=== PATIENT | female | born 1940 | race Caucasian/White ===

== ENCOUNTER 2017-01-15 11:13 | Inpatient (IN) | payer OTHER, BC ==
[2017-01-15 13:27] LABS: BASOPHIL 0.4 % (0-2.0); EOSINOPHIL 0.2 % (0-4.5); MCH 26.6 pg (25.7-33.7); MCHC 31.7 g/dl (32.0-36.0); MEAN PLT VOLUME 8.5 fl (7.5-11.1); NEUTROPHILS 84.8 % (42.8-82.8); PLATELET COUNT 155 K/MM3 (134-434); RDW 14.4 % (11.6-15.6); WHITE BLOOD COUNT 14.5 K/mm3 (4.0-10.0)
--- NOTE | 2017-01-15 13:40 | PDOC ---
History of Present Illness - General History Source: Patient Exam Limitations: No Limitations - History of Present Illness Initial Comments: 01/15/17 13:42 The patient is a 76-year-old female with a significant past medical history of HTN, HLD, breast CA, and bone CA, and presents to the emergency department with abdominal pain and blood in her diarrhea. The patient was in this ER yesterday for the same issue. She reports that she had sudden onset left lower quadrant pain and went to the bathroom, where she noted blood in her diarrhea. She reports she has a history of hemorrhoids but denies any rectal pain. She denies any recent illness, travel or antibiotic use. The patient denies chest pain, shortness of breath, headache and dizziness. The patient denies fever, chills, nausea, vomit, and constipation. The patient denies dysuria, frequency, urgency and hematuria. Allergies: penicillin Past Surgical History: appendectomy Social History: No toxic habits reported PCP: Dr. Danny Barker <Argelia Dash - Last Filed: 01/15/17 14:02> <Ramos Conteh - Last Filed: 01/15/17 14:51> - General Chief Complaint: Rectal Bleed Stated Complaint: BLOOD IN STOOL Time Seen by Provider: 01/15/17 12:55 Past History <Argelia Dash - Last Filed: 01/15/17 14:02> - Past Medical History Anemia: No Asthma: No Cancer: Yes (breast ca, bone cancer) Cardiac Disorders: No CVA: No COPD: No CHF: No Dementia: No Diabetes: No GI Disorders: No Disorders: No HTN: Yes Hypercholesterolemia: Yes Liver Disease: No Seizures: No Thyroid Disease: No - Surgical History Abdominal Surgery: No Appendectomy: Yes Cardiac Surgery: No Cholecystectomy: No Lung Surgery: No Neurologic Surgery: No Orthopedic Surgery: No - Psycho/Social/Smoking Cessation Hx Anxiety: No Suicidal Ideation: No Smoking History: Never smoked Have you smoked in the past 12 months: No Information on smoking cessation initiated: No Hx Alcohol Use: No Drug/Substance Use Hx: No Substance Use Type: None Hx Substance Use Treatment: No <Ramos Conteh - Last Filed: 01/15/17 14:51> - Past Medical History Allergies/Adverse Reactions: Allergies Allergy/AdvReac Type Severity Reaction Status Date / Time penicillin G Allergy Severe Verified 01/15/17 11:20 Home Medications: Ambulatory Orders Anastrozole [Arimidex -] 1 mg PO HS 01/14/17 Calcium (Oyster Shell) [Os-[place] 500Mg -] 500 mg PO DAILY 01/14/17 Cholecalciferol (Vitamin D3) [Vitamin D3 -] 1,000 unit PO DAILY 01/14/17 Multivitamin [Poly-Vitamin] 1 each PO DAILY 01/14/17 Simvastatin [Zocor -] 20 mg PO HS 01/14/17 Verapamil HCl [Calan] 240 mg PO DAILY 01/14/17 Review of Systems - Review of Systems Able to Perform ROS?: Yes Comments:: 01/15/17 13:42 GENERAL/CONSTITUTIONAL: No fever or chills. No weakness. HEAD, EYES, EARS, NOSE AND THROAT: No change in vision. No ear pain or discharge. No sore throat. CARDIOVASCULAR: No chest pain or shortness of breath. RESPIRATORY: No cough, wheezing, or hemoptysis. GASTROINTESTINAL: (+) Abdominal pain. (+) Bloody diarrhea. No nausea, vomiting, or constipation. GENITOURINARY: No dysuria, frequency, or change in urination. MUSCULOSKELETAL: No joint or muscle swelling or pain. No neck or back pain. SKIN: No rash NEUROLOGIC: No headache, vertigo, loss of consciousness, or change in strength/ sensation. ENDOCRINE: No increased thirst. No abnormal weight change. HEMATOLOGIC/LYMPHATIC: No anemia, easy bleeding, or history of blood clots. ALLERGIC/IMMUNOLOGIC: No hives or skin allergy. <Dash,Argelia - Last Filed: 01/15/17 14:02> *Physical Exam - Vital Signs Last Vital Signs Temp Pulse Resp BP Pulse Ox 97.8 F 128 H 18 102/64 100 01/15/17 11:14 01/15/17 11:14 01/15/17 11:14 01/15/17 11:14 01/15/17 13:12 - Physical Exam Comments: 01/15/17 13:42 GENERAL: Awake, alert, and fully oriented, in no acute distress HEAD: No signs of trauma EYES: PERRLA, EOMI, sclera anicteric, conjunctiva clear ENT: Auricles normal inspection, hearing grossly normal, nares patent, oropharynx clear without exudates. Moist mucosa NECK: Normal ROM, supple, no lymphadenopathy, JVD, or masses LUNGS: Breath sounds equal, clear to auscultation bilaterally. No wheezes, and no crackles HEART: (+) Tachycardic and regular rhythm, normal S1 and S2, no murmurs, rubs or gallops ABDOMEN: (+) LLQ tenderness to palpation. Soft, normoactive bowel sounds. No guarding, no rebound. No masses EXTREMITIES: Normal range of motion, no edema. No clubbing or cyanosis. No cords, erythema, or tenderness NEUROLOGICAL: Cranial nerves II through XII grossly intact. Normal speech, normal gait SKIN: Warm, Dry, normal turgor, no rashes or lesions noted. <Argelia Dash - Last Filed: 01/15/17 14:02> - Vital Signs Last Vital Signs Temp Pulse Resp BP Pulse Ox 97.8 F 128 H 18 102/64 100 01/15/17 11:14 01/15/17 11:14 01/15/17 11:14 01/15/17 11:14 01/15/17 13:12 <Ramos Conteh - Last Filed: 01/15/17 14:51> Heart Score/ECG Review - ECG Impressions Comment:: 01/15/17 14:02 Normal sinus rhythm. Normal ECG. <Argelia Dash - Last Filed: 01/15/17 14:02> ED Treatment Course - LABORATORY CBC & Chemistry Diagram: 01/15/17 13:12 01/15/17 13:12 - ADDITIONAL ORDERS Additional order review: 01/15/17 13:12 RBC 5.11 MCV 84.0 MCHC 31.7 L RDW 14.4 MPV 8.5 Neutrophils % 84.8 H Lymphocytes % 8.0 Monocytes % 6.6 Eosinophils % 0.2 Basophils % 0.4 <Argelia Dash - Last Filed: 01/15/17 14:02> - LABORATORY CBC & Chemistry Diagram: 01/15/17 13:12 01/15/17 13:12 - ADDITIONAL ORDERS Additional order review: 01/15/17 13:12 RBC 5.11 MCV 84.0 MCHC 31.7 L RDW 14.4 MPV 8.5 Neutrophils % 84.8 H Lymphocytes % 8.0 Monocytes % 6.6 Eosinophils % 0.2 Basophils % 0.4 <Ramos Conteh - Last Filed: 01/15/17 14:51> Medical Decision Making - Medical Decision Making 01/15/17 13:40 Called and discussed case with Dr. Magallanes. Called and discussed case with Dr. Barker. <Argelia Dash - Last Filed: 01/15/17 14:02> *DC/Admit/Observation/Transfer - Attestations Scribe Attestion: 01/15/17 13:43 Documentation prepared by Argelia Dash, acting as medical claims analyst for Ramos Conteh MD. <Argelia Dash - Last Filed: 01/15/17 14:02> - Discharge Dispostion Admit: Yes - Attestations Physician Attestion: 01/15/17 13:40 I, Dr. Ramos Conteh, attest that this document has been prepared under my direction and personally reviewed by me in its entirety. I further attest, that it accurately reflects all work, treatment, procedures and medical decision -making performed by me. <Ramos Conteh - Last Filed: 01/15/17 14:51> Diagnosis at time of Disposition: Colitis Gastrointestinal hemorrhage Qualifiers: GI bleed type/associated pathology: unspecified gastrointestinal hemorrhage type Qualified Code(s): K92.2 - Gastrointestinal hemorrhage, unspecified - Discharge Dispostion Condition at time of disposition: Improved - Referrals Referrals: Danny Barker MD [Primary Care Provider] -
[2017-01-15 13:43] LABS: ALBUMIN 3.4 g/dl (3.4-5.0); BILIRUBIN,TOTAL 1.5 mg/dL (0.2-1.0); CALCIUM 9.1 mg/dL (8.5-10.1); CREATININE 1.7 mg/dL (0.55-1.02); TOT PROT 6.4 g/dl (6.4-8.2)
[2017-01-15 13:52] LABS: INR 1.23 (0.82-1.09); PROTHROMBIN TIME (PATIENT) 13.6 SEC (9.98-11.88)
--- NOTE | 2017-01-15 13:54 | HP ---
CHIEF COMPLAINT: " I have rental bleeding" PCP: Dr Duran HISTORY OF PRESENT ILLNESS: This is a 76 yo M with PMH of HTN, HLD, Breast CA, Bone CA, hemorrhoids, who presents with rectal bleed. She states that yeterday mornign she woke up with sharp LLQ pain and had an episode of bloody diarrhea. She then visited [facility] ED here, was given IV abx and sent home. This morning she had another episode of hematochezia and intermittent in severity LLQ pain. She has not been drinking water or eating since yesterday morning. This has never happened before. Her last colonoscopy was in 2012 and was WNL according to her son. She had an episode of bleeding hemorrhoids in the that have not recurred. She has no family Hx of Gi CA. She deneis f/c, n/v, dizzness, edema, chest pain, h/a or dysuria. She does admit to frequent constipation. ER course was notable for: (1) Abd CT (2) Labs (3) IVF Recent Travel: denies PAST MEDICAL HISTORY: as above PAST SURGICAL HISTORY:cholecystectomy in [facility] , c section Social History: lives at home Smoking: denies Alcohol:denies Drugs: denies Family History: no hx colon or gi CA Allergies penicillin G Allergy (Severe, Verified 01/15/17 11:20) HOME MEDICATIONS: Home Medications Medication Instructions Recorded Anastrozole [Arimidex -] 1 mg PO HS 01/14/17 Calcium (Oyster Shell) [Os-[place] 500 mg PO DAILY 01/14/17 500Mg -] Cholecalciferol (Vitamin D3) 1,000 unit PO DAILY 01/14/17 [Vitamin D3 -] Multivitamin [Poly-Vitamin] 1 each PO DAILY 01/14/17 Simvastatin [Zocor -] 20 mg PO HS 01/14/17 Verapamil HCl [Calan] 240 mg PO DAILY 01/14/17 REVIEW OF SYSTEMS CONSTITUTIONAL: Absent: fever, chills HEENT: Absent: rhinorrhea, nasal congestion, throat pain CARDIOVASCULAR: Absent: chest pain, syncope, palpitations RESPIRATORY: Absent: cough, shortness of breath, dyspnea with exertion GASTROINTESTINAL: Absent: nausea, vomiting GENITOURINARY: Absent: dysuria MUSCULOSKELETAL: Absent: myalgia, arthralgia SKIN: Absent: rash, itching, pallor HEMATOLOGIC/IMMUNOLOGIC: Absent: easy bleeding, easy bruising ENDOCRINE: Absent: unexplained weight gain, unexplained weight loss NEUROLOGIC: Absent: headache, focal weakness or paresthesias, dizziness PSYCHIATRIC: Absent: anxiety, depression PHYSICAL EXAMINATION Vital Signs - 24 hr 01/15/17 01/15/17 11:14 13:12 Temperature 97.8 F Pulse Rate 128 H Respiratory 18 Rate Blood Pressure 102/64 O2 Sat by Pulse 99 100 Oximetry (%) GENERAL: Awake, alert, and fully oriented, in no acute distress. HEAD: Normal with no signs of trauma. EYES: Pupils equal, round and reactive to light, extraocular movements intact, sclera anicteric, conjunctiva clear. EARS, NOSE, THROAT:Moist mucous membranes. NECK: supple without JVD LUNGS: Breath sounds equal, clear to auscultation bilaterally. HEART: Regular rate and rhythm, normal S1 and S2 ABDOMEN: Soft, LLQ mildly tender, RLQ mildly tender, mildly distended, reduced bowel sounds, no guarding, no rebound, no masses. No hepatomegaly or splenomegaly. Rectal Exam: no lesions, no hemorrhoids, no stool, bright red blood, normal sphincter tone. MUSCULOSKELETAL:No CVA tenderness. UPPER EXTREMITIES: 2+ pulses, warm, well-perfused. No peripheral edema. LOWER EXTREMITIES: 2+ pulses, warm, well-perfused. No calf tenderness. No peripheral edema. NEUROLOGICAL: Cranial nerves II-XII grossly intact. Normal speech. PSYCHIATRIC: Cooperative. Good eye contact. Appropriate mood and affect. SKIN: Warm, dry Laboratory Results - last 24 hr 01/15/17 01/15/17 13:12 13:12 WBC 14.5 H RBC 5.11 Hgb 13.6 Hct 43.0 MCV 84.0 MCHC 31.7 L RDW 14.4 Plt Count 155 D MPV 8.5 Neutrophils % 84.8 H Lymphocytes % 8.0 Monocytes % 6.6 Eosinophils % 0.2 Basophils % 0.4 Sodium 142 Potassium 4.5 Chloride 106 Carbon Dioxide 23 Anion Gap 13 BUN 19 H D Creatinine 1.7 H Creat Clearance w eGFR 29.07 Random Glucose 112 H Calcium 9.1 Total Bilirubin 1.5 H D AST 36 D ALT 20 Alkaline Phosphatase 78 Total Protein 6.4 Albumin 3.4 ASSESSMENT/PLAN: This is a 76 yo M with PMH of HTN, HLD, Breast CA, Bone CA, hemorrhoids, who presents with rectal bleed. Acute L sided colitis -CT abd: acute L sided colitis, cholelithiasis, diverticulosis -leukocytosis trending up 14.5 from 12 -IV flagyl, rocephin -GI consult -IV tylenol prn pain GIB -no episodes in ED -h/h stable, trend cbc -NPO -IV PPI SERGIO -creat 1.7 trending up from 1.5 -likely due to dehydration -unknown baseline -IV hydration HTN -relatively hypotensive -hold meds FEN NS @ 100 stable lytes NPO Dispo: obs in med [facility] Problem List - Problem (1) Colitis Code(s): K52.9 - NONINFECTIVE GASTROENTERITIS AND COLITIS, UNSPECIFIED (2) GI bleeding Code(s): K92.2 - GASTROINTESTINAL HEMORRHAGE, UNSPECIFIED Qualifiers: GI bleed type/associated pathology: unspecified gastrointestinal hemorrhage type Qualified Code(s): K92.2 - Gastrointestinal hemorrhage, unspecified (3) DVT prophylaxis Code(s): [id number] - (4) Dehydration Code(s): E86.0 - DEHYDRATION (5) Dizziness Code(s): R42 - DIZZINESS AND GIDDINESS (6) Hyperlipidemia Code(s): E78.5 - HYPERLIPIDEMIA, UNSPECIFIED (7) Hypertension Code(s): I10 - ESSENTIAL (PRIMARY) HYPERTENSION Visit type - Emergency Visit Emergency Visit: Yes ED Registration Date: 01/15/17 Care time: The patient presented to the Emergency Department on the above date and was hospitalized for further evaluation of their emergent condition. - New Patient This patient is new to me today: Yes Date on this admission: 01/15/17 - Critical Care Critical Care patient: No
[2017-01-15] MEDS ORDERED: ACETAMINOPHEN 1000 MG/100 ML VIAL (NON FORMULARY) IVPB PRN (15:29)
[2017-01-15] MEDS ORDERED: PANTOPRAZOLE 20 MG TABLET (FP) PO SCH (15:30)
[2017-01-15] MEDS ORDERED: LACTATED RINGERS SOLUTION 1,000 ML IV SCH (15:30)
[2017-01-15] MEDS ORDERED: PANTOPRAZOLE 40 MG TABLET (FP) ONE (15:39)
[2017-01-15] MEDS: METRONIDAZOLE 500 MG PREMIXED 100 ML IVPB SCH ×2 (15:44→21:39)
--- NOTE | 2017-01-15 16:00 | PN ---
Progress Note (short form) - Note Progress Note: consult dictated suspected left sided ischemic colitis IV hydration IV abx Clear liquids daily labs possible flex sig 01/18
--- NOTE | 2017-01-15 16:48 | PN ---
Teaching Attending Note Name of Resident: Trish Rose ATTENDING PHYSICIAN STATEMENT I saw and evaluated the patient. I reviewed the resident's note and discussed the case with the resident. I agree with the resident's findings and plan as documented. SUBJECTIVE: 76 year old presenting with rectal bleed . OBJECTIVE: Was seen and evaluated in ED yesterday for similar problem , diagnosed with left sided colitis on CT scan and discharged home to follow up however returns due to bleeding. Laboratory 01/15/17 01/15/17 01/15/17 13:12 13:12 13:12 WBC 14.5 K/mm3 H K/mm3 (4.0-10.0) RBC 5.11 M/mm3 M/mm3 (3.60-5.2) Hgb 13.6 GM/dL GM/dL (10.7-15.3) Hct 43.0 % % (32.4-45.2) MCV 84.0 fl fl (80-96) MCHC 31.7 g/dl L g/dl (32.0-36.0) RDW 14.4 % % (11.6-15.6) Plt Count 155 K/MM3 D K/MM3 (134-434) MPV 8.5 fl fl (7.5-11.1) Neutrophils % 84.8 % H % (42.8-82.8) Lymphocytes % 8.0 % % (8-40) Monocytes % 6.6 % % (3.8-10.2) Eosinophils % 0.2 % % (0-4.5) Basophils % 0.4 % % (0-2.0) INR 1.23 H (0.82-1.09) Sodium 142 mmol/L mmol/L (136-145) Potassium 4.5 mmol/L mmol/L (3.5-5.1) Chloride 106 mmol/L mmol/L (98-107) Carbon Dioxide 23 mmol/L mmol/L (21-32) Anion Gap 13 (8-16) BUN 19 mg/dL H D mg/dL (7-18) Creatinine 1.7 mg/dL H mg/dL (0.55-1.02) Creat Clearance w eGFR 29.07 (>60) Random Glucose 112 mg/dL H mg/dL (74-106) Calcium 9.1 mg/dL mg/dL (8.5-10.1) Total Bilirubin 1.5 mg/dL H D mg/dL (0.2-1.0) AST 36 U/L D U/L (15-37) ALT 20 U/L U/L (12-78) Alkaline Phosphatase 78 U/L U/L (45-117) Total Protein 6.4 g/dl g/dl (6.4-8.2) Albumin 3.4 g/dl g/dl (3.4-5.0) ASSESSMENT AND PLAN: Left sided colitis with failure of outpatient treatment . rule out ischemic colitis - IVF - IV antibiotics - GI consult - Monitor H&H - sigmoidoscopy per GI admit as an inpatient , anticipated treatment course with IV antibiotics is greater then 2 midnights
--- NOTE | 2017-01-15 16:50 | CONS ---
DATE OF CONSULTATION: 01/15/2017 GASTROINTESTINAL CONSULTATION REQUESTING PHYSICIAN: Danny Barker M.D. HISTORY OF PRESENT ILLNESS: The patient is a 76-year-old female admitted through [facility] for evaluation of rectal bleeding and abdominal pain. She was seen at the [facility] emergency room yesterday when she states she was awoken by left-sided abdominal pain. She also noted a scant amount of rectal bleeding. When she was seen in the ER yesterday afternoon, white blood cell count was noted to be 12. She had a CT scan of the abdomen and pelvis revealing acute left-sided colitis, questionable ischemic etiology, given the distribution of this finding. She is given as well as osteoblastic, metastatic neoplastic disease. She was given 1 dose of IV antibiotics. She was sent home yesterday. This morning she had a large bloody bowel movement, and she was brought to the emergency room by her son for further evaluation. In the emergency room currently, her white blood count was noted to be 14.5. There has been no further rectal bleeding from the morning. She states that the pain is still there but stable in intensity. She denies any nausea, vomiting, fevers, chills. She denies any recent antibiotic use or travel, change in her dietary habits. She underwent colonoscopy performed by myself in October of 2013 that revealed severe diverticulosis in the sigmoid colon and led to the removal of a small tubular adenoma of the proximal transverse colon and an IC valve lipoma. She denies any new medications prior to her admission. PAST MEDICAL HISTORY: Includes hypertension, hyperlipidemia. PAST SURGICAL HISTORY: Tonsillectomy, , appendectomy, and oral surgery. SOCIAL HISTORY: She is . 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 No history of smoking. She is a former social alcohol drinker, and she quit in 2002. No history of intravenous drug abuse, illicit drugs. FAMILY HISTORY: Father had a history of diabetes. She was uncertain regarding her mother's medical history. Brother in good health, and son with asthma. MEDICATION: Prior to admission included Zocor, Calan, tramadol, and anastrozole. ALLERGIES: PENICILLIN. REVIEW OF SYSTEMS: She denied any chest pain, no shortness of breath, nausea, vomiting, fevers, chills, cough, sputum production. Denied any lower extremity swelling. PHYSICAL EXAMINATION: General: The patient is found lying comfortably in her emergency room stretcher. She appeared to be in no apparent distress. Vital signs: Temperature 98.5 with pulse of 96, blood pressure 122/87, saturating at 98% on room air. HEENT: Sclerae are anicteric. Neck: Supple. Cardiovascular: Heart regular rate and rhythm. No murmurs are appreciated. Lungs: Clear to auscultation bilaterally. Abdomen: Nondistended. She had a right lower quadrant surgical scar as well as a pelvic surgical scar. She had normoactive bowel sounds. She had tenderness to palpation in the left upper quadrant as well left abdomen and left lower quadrant. There is no guarding or rebound. Extremities: No lower extremity edema. Genitourinary: Digital rectal exam, there are no external lesions and no masses. There was no blood or stool in the rectal vault. LABORATORY EVALUATION: White blood cell count 14.5, hemoglobin 13.6, hematocrit 43, platelets 155, INR 1.23. Sodium 142, potassium 4.5, chloride 106, bicarbonate 23, BUN 19, creatinine 1.7, glucose 112. AST of 36, ALT of 20, alkaline phosphatase 78, total bilirubin 1.5, with an albumin of 3.4. RADIOLOGY REPORTS: CT scan of the abdomen and pelvis as noted on the history of present illness. IMPRESSION: A 76-year-old female with left-sided colitis, suspected to be ischemic in nature, given that she had more rectal bleeding than diarrhea, without any real risk factors for infectious colitis. A segmental infectious colitis would be an odd presentation as well. RECOMMENDATION: I would recommend the following. Clear liquids for now. IV hydration. IV antibiotics dosed according to her renal function. Continue to monitor clinically. will be covering over the weekend, and we will resume coverage January 18. Other recommendations pending the patient's clinical course. I thank you for this consultative opportunity. EDMOND LAWRENCE DO [id number]
[2017-01-15 17:26] VITALS: BMI 34.4
[2017-01-15] MEDS: SODIUM CHLORIDE 1,000 ML IV SCH (18:31)
[2017-01-16] MEDS: METRONIDAZOLE 500 MG PREMIXED 100 ML IVPB SCH ×4 (02:15→22:40)
[2017-01-16 08:51] LABS: MCH 27.2 pg (25.7-33.7); MCHC 32.6 g/dl (32.0-36.0); MEAN CELL VOLUME 83.3 fl (80-96); MEAN PLT VOLUME 8.3 fl (7.5-11.1); PLATELET COUNT 140 K/MM3 (134-434); RDW 14.5 % (11.6-15.6); WHITE BLOOD COUNT 12.1 K/mm3 (4.0-10.0)
[2017-01-16 09:33] LABS: MAGNESIUM 1.9 mg/dL (1.8-2.4); PHOSPHOROUS 2.4 mg/dL (2.5-4.9)
[2017-01-16] MEDS: cefTRIAXone 1 GM/50 ML BAG (PRE-DOCKED) IVPB SCH (09:42)
--- NOTE | 2017-01-16 13:25 | PN ---
GI Progress Note Subjective: GASTROENTEROLOGY (FOR DI MARCYORNO) MUCH LESS PAIN, BM TODAY WITHOUT BLOOD NO FEVER - Objective Vital Signs: Vital Signs Temperature 99.7 F H 01/16/17 10:00 Pulse Rate 100 H 01/16/17 10:00 Respiratory Rate 18 01/16/17 10:00 Blood Pressure 112/50 01/16/17 10:00 O2 Sat by Pulse Oximetry (%) 97 01/16/17 10:00 Constitutional: No Distress, Calm Eyes: Yes: Conjunctiva Clear HENT: Yes: Normocephalic Cardiovascular: Yes: Regular Rate and Rhythm Respiratory: Yes: Regular Gastrointestinal Inspection: Yes: Distention ...Auscultate: Yes: Normoactive Bowel Sounds ...Palpate: Yes: Tenderness (MILD LLQ PAIN BUT NO GUARDING OR REBOUND) Extremities: Yes: WNL Labs: CBC, BMP 01/16/17 06:50 INR, PTT INR 1.23 (0.82-1.09) H 01/15/17 13:12 Laboratory Tests 01/15/17 01/15/17 01/15/17 13:12 13:12 13:12 WBC 14.5 H RBC Hgb Hct MCV MCHC RDW Plt Count MPV INR 1.23 H Sodium 142 Potassium 4.5 Chloride 106 Carbon Dioxide 23 Anion Gap 13 BUN 19 H D Creatinine 1.7 H Creat Clearance w eGFR 29.07 Random Glucose 112 H Calcium 9.1 Phosphorus Magnesium Total Bilirubin 1.5 H D AST 36 D ALT 20 Alkaline Phosphatase 78 Total Protein 6.4 Albumin 3.4 01/16/17 01/16/17 06:50 06:50 WBC 12.1 H RBC 4.29 Hgb 11.7 D Hct 35.8 D MCV 83.3 MCHC 32.6 RDW 14.5 Plt Count 140 MPV 8.3 INR Sodium Potassium Chloride Carbon Dioxide Anion Gap BUN Creatinine Creat Clearance w eGFR Random Glucose Calcium Phosphorus 2.4 L D Magnesium 1.9 D Total Bilirubin AST ALT Alkaline Phosphatase Total Protein Albumin Problem List - Problems (1) Acute ischemic colitis Assessment/Plan: IMPROVED, CONTINUE IV AND PO CLEAR LIQUIDS FOLLOW LABS FLEX SIGMOIDOSCOPY ON WEDNESDAY IF STABLE Code(s): K55.039 - ACUTE ISCHEMIA OF LARGE INTESTINE, EXTENT UNSPECIFIED (2) Abdominal pain Code(s): R10.9 - UNSPECIFIED ABDOMINAL PAIN (3) GI bleeding Code(s): K92.2 - GASTROINTESTINAL HEMORRHAGE, UNSPECIFIED Qualifiers: GI bleed type/associated pathology: unspecified gastrointestinal hemorrhage type Qualified Code(s): K92.2 - Gastrointestinal hemorrhage, unspecified (4) Colitis Code(s): K52.9 - NONINFECTIVE GASTROENTERITIS AND COLITIS, UNSPECIFIED
[2017-01-16] MEDS: SODIUM CHLORIDE 1,000 ML IV SCH (15:36)
--- NOTE | 2017-01-16 16:21 | PN ---
Physical Exam: SUBJECTIVE: Patient seen and examined No further GI bleed as per patient, comfortable with no abdominal pain. OBJECTIVE: Vital Signs Temperature 99.4 F 01/16/17 14:58 Pulse Rate 101 H 01/16/17 14:58 Respiratory Rate 18 01/16/17 14:58 Blood Pressure 137/70 01/16/17 14:58 O2 Sat by Pulse Oximetry (%) 97 01/16/17 10:00 GENERAL: The patient is awake, alert, and fully oriented, in no acute distress. HEAD: Normal with no signs of trauma. EYES: PERRL, extraocular movements intact, sclera anicteric, conjunctiva clear. ENT: Ears normal, oropharynx clear without exudates, moist mucous membranes. NECK: Trachea midline, full range of motion, supple. LUNGS: Breath sounds equal, clear to auscultation bilaterally, no wheezes, no crackles, no accessory muscle use. HEART: Regular rate and rhythm, S1, S2 positive, no rub or gallop. ABDOMEN: Soft, nontender, nondistended, normoactive bowel sounds, no guarding, no rebound, no hepatosplenomegaly, no masses appreciated. EXTREMITIES: 2+ pulses, warm, well-perfused, no edema. NEUROLOGICAL: Cranial nerves II through XII grossly intact. Normal speech, gait not observed. PSYCH: Normal mood, normal affect. SKIN: Warm, dry, normal turgor, no rashes or lesions noted CBCD WBC 12.1 K/mm3 (4.0-10.0) H 01/16/17 06:50 RBC 4.29 M/mm3 (3.60-5.2) 01/16/17 06:50 Hgb 11.7 GM/dL (10.7-15.3) D 01/16/17 06:50 Hct 35.8 % (32.4-45.2) D 01/16/17 06:50 MCV 83.3 fl (80-96) 01/16/17 06:50 MCHC 32.6 g/dl (32.0-36.0) 01/16/17 06:50 RDW 14.5 % (11.6-15.6) 01/16/17 06:50 Plt Count 140 K/MM3 (134-434) 01/16/17 06:50 MPV 8.3 fl (7.5-11.1) 01/16/17 06:50 CMP Sodium 142 mmol/L (136-145) 01/15/17 13:12 Potassium 4.5 mmol/L (3.5-5.1) 01/15/17 13:12 Chloride 106 mmol/L (98-107) 01/15/17 13:12 Carbon Dioxide 23 mmol/L (21-32) 01/15/17 13:12 Anion Gap 13 (8-16) 01/15/17 13:12 BUN 19 mg/dL (7-18) H D 01/15/17 13:12 Creatinine 1.7 mg/dL (0.55-1.02) H 01/15/17 13:12 Creat Clearance w eGFR 29.07 (>60) 01/15/17 13:12 Random Glucose 112 mg/dL (74-106) H 01/15/17 13:12 Calcium 9.1 mg/dL (8.5-10.1) 01/15/17 13:12 Total Bilirubin 1.5 mg/dL (0.2-1.0) H D 01/15/17 13:12 AST 36 U/L (15-37) D 01/15/17 13:12 ALT 20 U/L (12-78) 01/15/17 13:12 Alkaline Phosphatase 78 U/L (45-117) 01/15/17 13:12 Total Protein 6.4 g/dl (6.4-8.2) 01/15/17 13:12 Albumin 3.4 g/dl (3.4-5.0) 01/15/17 13:12 Laboratory Results - last 24 hr 01/16/17 01/16/17 01/16/17 06:50 06:50 06:50 WBC 12.1 H RBC 4.29 Hgb 11.7 D Hct 35.8 D MCV 83.3 MCHC 32.6 RDW 14.5 Plt Count 140 MPV 8.3 Phosphorus 2.4 L D Magnesium 1.9 D Blood Type O POSITIVE Antibody Screen Positive H Antibody Identification TNP Active Medications Generic Name Dose Route Start Last Admin Trade Name Freq PRN Reason Stop Dose Admin Acetaminophen 1,000 mg 01/15/17 15:29 Ofirmev Injection - IVPB Q6H PRN PAIN Ceftriaxone Sodium 1 gm 01/16/17 10:00 01/16/17 09:42 Rocephin 1gm Ivpb (Pre-Docked) IVPB 1 gm DAILY JOSÉ Administration Protocol Metronidazole 100 mls @ 100 mls/hr 01/15/17 15:30 01/16/17 15:36 Flagyl 500mg Premixed Ivpb - IVPB 100 mls/hr Q6H-IV JOSÉ Administration Sodium Chloride 1,000 mls @ 75 mls/hr 01/15/17 16:30 01/16/17 15:36 Normal Saline - IV 75 mls/hr ASDIR JOSÉ Administration Hepatic Panel Total Bilirubin 1.5 mg/dL (0.2-1.0) H D 01/15/17 13:12 AST 36 U/L (15-37) D 01/15/17 13:12 ALT 20 U/L (12-78) 01/15/17 13:12 Alkaline Phosphatase 78 U/L (45-117) 01/15/17 13:12 Albumin 3.4 g/dl (3.4-5.0) 01/15/17 13:12 CT abd: acute L sided colitis, cholelithiasis, diverticulosis ASSESSMENT/PLAN: This is a 76 yo M with PMH of HTN, HLD, Breast CA, Bone CA, hemorrhoids, who presents with rectal bleed. #Acute L sided colitis with Acute Leukocytosis trending down on IV antibiotic Rocephin/Flagyl day #2 , GI consult appreciated Dr Mock covering for ;IV tylenol prn pain ; Flex sig. by on Wednesday if stable # Acute GIB no further episodes noted ; Follow H/H # Acute renal failure due to GI bleed/dehydration , trending down creat 1.7--> 1.5 #HTN controlled will continue home meds. DVt Px: SCds, Heparin is contraindicated since an episode of GI bleed. Visit type - Emergency Visit Emergency Visit: Yes ED Registration Date: 01/15/17 Care time: The patient presented to the Emergency Department on the above date and was hospitalized for further evaluation of their emergent condition. - New Patient This patient is new to me today: Yes Date on this admission: 01/16/17 - Critical Care Critical Care patient: No
[2017-01-17] MEDS: METRONIDAZOLE 500 MG PREMIXED 100 ML IVPB SCH ×4 (03:08→21:16)
[2017-01-17] MEDS: SODIUM CHLORIDE 1,000 ML IV SCH ×2 (06:35→18:21)
[2017-01-17 09:00] LABS: BASOPHIL 0.7 % (0-2.0); EOSINOPHIL 1.9 % (0-4.5); MCH 27.2 pg (25.7-33.7); MCHC 32.5 g/dl (32.0-36.0); MEAN CELL VOLUME 83.7 fl (80-96); MEAN PLT VOLUME 8.4 fl (7.5-11.1); NEUTROPHILS 76.2 % (42.8-82.8); PLATELET COUNT 128 K/MM3 (134-434); RDW 14.5 % (11.6-15.6); WHITE BLOOD COUNT 9.5 K/mm3 (4.0-10.0)
[2017-01-17 09:27] LABS: ALBUMIN 2.4 g/dl (3.4-5.0); BILIRUBIN,TOTAL 0.6 mg/dL (0.2-1.0); CALCIUM 8.1 mg/dL (8.5-10.1); CREATININE 1.1 mg/dL (0.55-1.02); PHOSPHOROUS 2.1 mg/dL (2.5-4.9); TOT PROT 4.9 g/dl (6.4-8.2)
[2017-01-17] MEDS: cefTRIAXone 1 GM/50 ML BAG (PRE-DOCKED) IVPB SCH (10:37)
--- NOTE | 2017-01-17 11:16 | EKG ---
Test Reason : Blood Pressure : / mmHG Vent. Rate : 099 BPM Atrial Rate : 099 BPM P-R Int : 160 ms QRS Dur : 088 ms QT Int : 360 ms P-R-T Axes : 055 006 040 degrees QTc Int : 462 ms NORMAL SINUS RHYTHM NORMAL ECG WHEN COMPARED WITH ECG OF 14-JAN-2017 16:38, NO SIGNIFICANT CHANGE WAS FOUND Confirmed by MARTINA BEVERLY MD ([id number]) on 01/17/2017 11:16:34 AM Referred By: Confirmed By:MARTINA BEVERLY MD
--- NOTE | 2017-01-17 12:54 | PN ---
GI Progress Note Subjective: GASTROENTEROLOGY (FOR RAFIQ) NO PAIN, NO FEVER, WBC NOW NORMAL, BM LAST NIGHT WITHOUT BLEEDING - Objective Vital Signs: Vital Signs Temperature 98.7 F 01/17/17 06:00 Pulse Rate 92 H 01/17/17 06:00 Respiratory Rate 20 01/17/17 06:00 Blood Pressure 133/75 01/17/17 06:00 O2 Sat by Pulse Oximetry (%) 97 01/16/17 21:00 Constitutional: No Distress, Calm HENT: Yes: WNL Cardiovascular: Yes: WNL Respiratory: Yes: WNL Gastrointestinal Inspection: Yes: WNL ...Auscultate: Yes: Normoactive Bowel Sounds ...Palpate: Yes: Soft Extremities: Yes: WNL Labs: CBC, BMP 01/17/17 06:50 01/17/17 06:50 INR, PTT INR 1.23 (0.82-1.09) H 01/15/17 13:12 Laboratory Tests 01/15/17 01/17/17 01/17/17 13:12 06:50 06:50 WBC 9.5 RBC 4.00 Hgb 10.9 Hct 33.4 MCV 83.7 MCHC 32.5 RDW 14.5 Plt Count 128 L MPV 8.4 Neutrophils % 76.2 Lymphocytes % 15.0 D Monocytes % 6.2 Eosinophils % 1.9 D Basophils % 0.7 INR 1.23 H Sodium 143 Potassium 3.6 Chloride 112 H Carbon Dioxide 22 Anion Gap 9 BUN 9 D Creatinine 1.1 H D Creat Clearance w eGFR 48.04 Random Glucose 85 D Calcium 8.1 L Phosphorus 2.1 L Total Bilirubin 0.6 D AST 23 D ALT 16 Alkaline Phosphatase 58 D Total Protein 4.9 L D Albumin 2.4 L D Problem List - Problems (1) Acute ischemic colitis Assessment/Plan: IMPROVED, CONTINUE IV AND ADVANCE TO FULL LIQUIDS FOLLOW LABS FLEX SIGMOIDOSCOPY ON WEDNESDAY RISKS AND BENEFITS EXPALINED AND SHE AGREES Code(s): K55.039 - ACUTE ISCHEMIA OF LARGE INTESTINE, EXTENT UNSPECIFIED (2) Abdominal pain Assessment/Plan: RESOLVED Code(s): R10.9 - UNSPECIFIED ABDOMINAL PAIN (3) GI bleeding Assessment/Plan: RESOLVED Code(s): K92.2 - GASTROINTESTINAL HEMORRHAGE, UNSPECIFIED Qualifiers: GI bleed type/associated pathology: unspecified gastrointestinal hemorrhage type Qualified Code(s): K92.2 - Gastrointestinal hemorrhage, unspecified (4) Colitis Code(s): K52.9 - NONINFECTIVE GASTROENTERITIS AND COLITIS, UNSPECIFIED
--- NOTE | 2017-01-17 16:42 | PN ---
Progress Note (short form) - Note Progress Note: Patient is comfortable with no acute distress, able to tolerate full liquid diet. No further bloody stool. Temperature 98.8 F 01/17/17 15:26 Pulse Rate 97 H 01/17/17 15:26 Respiratory Rate 18 01/17/17 15:26 Blood Pressure 154/77 01/17/17 15:26 O2 Sat by Pulse Oximetry (%) 97 01/17/17 09:00 GENERAL: The patient is awake, alert, and fully oriented, in no acute distress. HEAD: Normal with no signs of trauma. EYES: PERRL, extraocular movements intact, sclera anicteric, conjunctiva clear. ENT: Ears normal, oropharynx clear without exudates, moist mucous membranes. NECK: Trachea midline, full range of motion, supple. LUNGS: Breath sounds equal, clear to auscultation bilaterally, no wheezes, no crackles, no accessory muscle use. HEART: Regular rate and rhythm, S1, S2 positive, no rub or gallop. ABDOMEN: Soft, nontender, nondistended, normoactive bowel sounds, no hepatosplenomegaly, no masses appreciated. EXTREMITIES: 2+ pulses, warm, well-perfused, no edema. NEUROLOGICAL: Cranial nerves II through XII grossly intact. Normal speech, gait not observed. PSYCH: Normal mood, normal affect. SKIN: Warm, dry, normal turgor, no rashes or lesions noted CBCD WBC 9.5 K/mm3 (4.0-10.0) 01/17/17 06:50 RBC 4.00 M/mm3 (3.60-5.2) 01/17/17 06:50 Hgb 10.9 GM/dL (10.7-15.3) 01/17/17 06:50 Hct 33.4 % (32.4-45.2) 01/17/17 06:50 MCV 83.7 fl (80-96) 01/17/17 06:50 MCHC 32.5 g/dl (32.0-36.0) 01/17/17 06:50 RDW 14.5 % (11.6-15.6) 01/17/17 06:50 Plt Count 128 K/MM3 (134-434) L 01/17/17 06:50 MPV 8.4 fl (7.5-11.1) 01/17/17 06:50 CMP Sodium 143 mmol/L (136-145) 01/17/17 06:50 Potassium 3.6 mmol/L (3.5-5.1) 01/17/17 06:50 Chloride 112 mmol/L (98-107) H 01/17/17 06:50 Carbon Dioxide 22 mmol/L (21-32) 01/17/17 06:50 Anion Gap 9 (8-16) 01/17/17 06:50 BUN 9 mg/dL (7-18) D 01/17/17 06:50 Creatinine 1.1 mg/dL (0.55-1.02) H D 01/17/17 06:50 Creat Clearance w eGFR 48.04 (>60) 01/17/17 06:50 Random Glucose 85 mg/dL (74-106) D 01/17/17 06:50 Calcium 8.1 mg/dL (8.5-10.1) L 01/17/17 06:50 Total Bilirubin 0.6 mg/dL (0.2-1.0) D 01/17/17 06:50 AST 23 U/L (15-37) D 01/17/17 06:50 ALT 16 U/L (12-78) 01/17/17 06:50 Alkaline Phosphatase 58 U/L (45-117) D 01/17/17 06:50 Total Protein 4.9 g/dl (6.4-8.2) L D 01/17/17 06:50 Albumin 2.4 g/dl (3.4-5.0) L D 01/17/17 06:50 Current Medications Generic Name Dose Route Start Last Admin Trade Name Freq PRN Reason Stop Dose Admin Acetaminophen 1,000 mg 01/15/17 15:29 Ofirmev Injection - IVPB Q6H PRN PAIN Ceftriaxone Sodium 1 gm 01/16/17 10:00 01/17/17 10:37 Rocephin 1gm Ivpb (Pre-Docked) IVPB 1 gm DAILY JOSÉ Administration Protocol Metronidazole 100 mls @ 100 mls/hr 01/15/17 15:30 01/17/17 14:57 Flagyl 500mg Premixed Ivpb - IVPB 100 mls/hr Q6H-IV JOSÉ Administration Sodium Chloride 1,000 mls @ 75 mls/hr 01/15/17 16:30 01/17/17 06:35 Normal Saline - IV 75 mls/hr ASDIR JOSÉ Administration Sodium Phosphate 133 ml 01/18/17 09:00 Fleet Adult Rectal Enema - [place] 01/18/17 09:01 ONCE ONE Home Medications Medication Instructions Recorded Anastrozole [Arimidex -] 1 mg PO HS 01/14/17 Calcium (Oyster Shell) [Os-[place] 500 mg PO DAILY 01/14/17 500Mg -] Cholecalciferol (Vitamin D3) 1,000 unit PO DAILY 01/14/17 [Vitamin D3 -] Multivitamin [Poly-Vitamin] 1 each PO DAILY 01/14/17 Simvastatin [Zocor -] 20 mg PO HS 01/14/17 Verapamil HCl [Calan] 240 mg PO DAILY 01/14/17 CT abd: acute L sided colitis, cholelithiasis, diverticulosis ASSESSMENT/PLAN: This is a 76 yo M with PMH of HTN, HLD, Breast CA, Bone CA, hemorrhoids, who presents with rectal bleed. #Acute L sided colitis with Acute Leukocytosis !4.5--->12.1---> 9.5 today trending down on IV antibiotic Rocephin/Flagyl day #3 will continue , GI consult appreciated Dr Mock covering for ;IV tylenol prn pain ; Flex sig. by on Wednesday if stable. # Acute GIB no further episodes noted ; Follow H/H # Acute renal failure due to GI bleed/dehydration , trending down creat 1.7--> 1.5-->1.1 today #HTN controlled will continue home meds. DVt Px: SCds, Heparin is contraindicated since an episode of GI bleed. Visit type - Emergency Visit Emergency Visit: Yes ED Registration Date: 01/15/17 Care time: The patient presented to the Emergency Department on the above date and was hospitalized for further evaluation of their emergent condition. - New Patient This patient is new to me today: No - Critical Care Critical Care patient: No
[2017-01-17] MEDS: VERAPAMIL HCL 240 MG E.R. TABLET (FP) PO SCH (18:20)
[2017-01-17 19:58] LABS: BASOPHIL 0.7 % (0-2.0); EOSINOPHIL 1.7 % (0-4.5); MCH 27.3 pg (25.7-33.7); MCHC 32.6 g/dl (32.0-36.0); MEAN CELL VOLUME 83.9 fl (80-96); MEAN PLT VOLUME 8.2 fl (7.5-11.1); NEUTROPHILS 78.2 % (42.8-82.8); PLATELET COUNT 166 K/MM3 (134-434); RDW 14.8 % (11.6-15.6); WHITE BLOOD COUNT 9.8 K/mm3 (4.0-10.0)
[2017-01-17] MEDS: ANASTROZOLE 1 MG TABLET PO SCH (21:18)
[2017-01-18] MEDS: METRONIDAZOLE 500 MG PREMIXED 100 ML IVPB SCH ×3 (03:04→15:02)
[2017-01-18] MEDS ORDERED: SODIUM PHOSPHATE/NA BIPHOS 133 ML ENEMA PR ONE (09:00)
[2017-01-18 09:05] LABS: ALBUMIN 2.5 g/dl (3.4-5.0); ALK PHOS 59 U/L (45-117); ANION GAP 11 (8-16); BILIRUBIN,TOTAL 0.6 mg/dL (0.2-1.0); CALCIUM 8.1 mg/dL (8.5-10.1); CO2 23 mmol/L (21-32); CREATININE 0.9 mg/dL (0.55-1.02); GLUCOSE,RANDOM 91 mg/dL (74-106); SGOT/AST 20 U/L (15-37); SGPT/ALT 14 U/L (12-78); TOT PROT 4.8 g/dl (6.4-8.2)
--- NOTE | 2017-01-18 11:14 | PN ---
Progress Note (short form) - Note Progress Note: GI Procedure NOte: Please see sigmoidoscopy report. Picture is most consistent with ischemic colitis of the descending and upper sigmoid colon. Will start clear liquids and advance diet as tolerated.
[2017-01-18] MEDS: cefTRIAXone 1 GM/50 ML BAG (PRE-DOCKED) IVPB SCH (12:00)
[2017-01-18] MEDS: VERAPAMIL HCL 240 MG E.R. TABLET (FP) PO SCH (12:00)
--- NOTE | 2017-01-18 16:01 | PN ---
Teaching Attending Note Name of Resident: Trish Rose ATTENDING PHYSICIAN STATEMENT I saw and evaluated the patient. I reviewed the resident's note and discussed the case with the resident. I agree with the resident's findings and plan as documented. Patient went for flex sigmoidoscopy. Vital Signs Temperature 98.8 F 01/18/17 15:32 Pulse Rate 92 H 01/18/17 15:32 Respiratory Rate 20 01/18/17 15:32 Blood Pressure 135/70 01/18/17 15:32 O2 Sat by Pulse Oximetry (%) 100 01/18/17 11:24 CBCD WBC 9.8 K/mm3 (4.0-10.0) 01/17/17 19:50 RBC 4.35 M/mm3 (3.60-5.2) 01/17/17 19:50 Hgb 11.9 GM/dL (10.7-15.3) 01/17/17 19:50 Hct 36.5 % (32.4-45.2) 01/17/17 19:50 MCV 83.9 fl (80-96) 01/17/17 19:50 MCHC 32.6 g/dl (32.0-36.0) 01/17/17 19:50 RDW 14.8 % (11.6-15.6) 01/17/17 19:50 Plt Count 166 K/MM3 (134-434) D 01/17/17 19:50 MPV 8.2 fl (7.5-11.1) 01/17/17 19:50 CMP Sodium 145 mmol/L (136-145) 01/18/17 07:00 Potassium 3.5 mmol/L (3.5-5.1) 01/18/17 07:00 Chloride 111 mmol/L (98-107) H 01/18/17 07:00 Carbon Dioxide 23 mmol/L (21-32) 01/18/17 07:00 Anion Gap 11 (8-16) 01/18/17 07:00 BUN 7 mg/dL (7-18) D 01/18/17 07:00 Creatinine 0.9 mg/dL (0.55-1.02) 01/18/17 07:00 Creat Clearance w eGFR > 60 (>60) 01/18/17 07:00 Random Glucose 91 mg/dL (74-106) 01/18/17 07:00 Calcium 8.1 mg/dL (8.5-10.1) L 01/18/17 07:00 Total Bilirubin 0.6 mg/dL (0.2-1.0) 01/18/17 07:00 AST 20 U/L (15-37) 01/18/17 07:00 ALT 14 U/L (12-78) 01/18/17 07:00 Alkaline Phosphatase 59 U/L (45-117) 01/18/17 07:00 Total Protein 4.8 g/dl (6.4-8.2) L 01/18/17 07:00 Albumin 2.5 g/dl (3.4-5.0) L 01/18/17 07:00 Current Medications Generic Name Dose Route Start Last Admin Trade Name Freq PRN Reason Stop Dose Admin Acetaminophen 1,000 mg 01/15/17 15:29 Ofirmev Injection - IVPB Q6H PRN PAIN Anastrozole 1 mg 01/17/17 22:00 01/17/17 21:18 Arimidex - PO 1 mg HS JOSÉ Administration Ceftriaxone Sodium 1 gm 01/16/17 10:00 01/18/17 12:00 Rocephin 1gm Ivpb (Pre-Docked) IVPB 1 gm DAILY JOSÉ Administration Protocol Metronidazole 100 mls @ 100 mls/hr 01/15/17 15:30 01/18/17 15:02 Flagyl 500mg Premixed Ivpb - IVPB 100 mls/hr Q6H-IV JOSÉ Administration Sodium Chloride 1,000 mls @ 75 mls/hr 01/15/17 16:30 01/17/17 18:21 Normal Saline - IV Not Given ASDIR JOSÉ Verapamil HCl 240 mg 01/17/17 18:00 01/18/17 12:00 Calan Sr - PO 240 mg DAILY JOSÉ Administration Home Medications Medication Instructions Recorded Anastrozole [Arimidex -] 1 mg PO HS 01/14/17 Calcium (Oyster Shell) [Os-[place] 500 mg PO DAILY 01/14/17 500Mg -] Cholecalciferol (Vitamin D3) 1,000 unit PO DAILY 01/14/17 [Vitamin D3 -] Multivitamin [Poly-Vitamin] 1 each PO DAILY 01/14/17 Simvastatin [Zocor -] 20 mg PO HS 01/14/17 Verapamil HCl [Calan] 240 mg PO DAILY 01/14/17 CT abd: acute L sided colitis, cholelithiasis, diverticulosis ASSESSMENT AND PLAN: This is a 76 yo M with PMH of HTN, HLD, Breast CA, Bone CA, hemorrhoids, who presents with rectal bleed. #Acute L sided colitis with Acute Leukocytosis !4.5--->12.1---> 9.5 today trending down on IV antibiotic Rocephin/Flagyl day #4 will continue , GI consult appreciated Dr Mock covering for ;IV tylenol prn pain ; Flex sig.today. # Acute GIB no further episodes noted ; Follow H/H # Acute renal failure due to GI bleed/dehydration , trending down creat 1.7--> 1.5-->1.1 today #HTN controlled will continue home meds. DVt Px: SCds, Heparin is contraindicated since an episode of GI bleed. if tolerates diet patient can go home
--- NOTE | 2017-01-18 16:23 | DS ---
Physical Exam: SUBJECTIVE: Patient seen and examined OBJECTIVE: Vital Signs Period Temp Pulse Resp BP Sys/Velásquez Pulse Ox Last 24 Hr 98.8 F 92 20 135/70 PHYSICAL EXAM GENERAL: Awake, alert, and fully oriented, in no acute distress. HEAD: Normal with no signs of trauma. EYES: Pupils equal, round and reactive to light, extraocular movements intact, sclera anicteric, conjunctiva clear. EARS, NOSE, THROAT:Moist mucous membranes. NECK: supple without JVD LUNGS: Breath sounds equal, clear to auscultation bilaterally. HEART: Regular rate and rhythm, normal S1 and S2 ABDOMEN: Soft, LLQ mildly tender, RLQ mildly tender, mildly distended, reduced bowel sounds, no guarding, no rebound, no masses. No hepatomegaly or splenomegaly. Rectal Exam: no lesions, no hemorrhoids, no stool, bright red blood, normal sphincter tone. MUSCULOSKELETAL:No CVA tenderness. UPPER EXTREMITIES: 2+ pulses, warm, well-perfused. No peripheral edema. LOWER EXTREMITIES: 2+ pulses, warm, well-perfused. No calf tenderness. No peripheral edema. NEUROLOGICAL: Cranial nerves II-XII grossly intact. Normal speech. PSYCHIATRIC: Cooperative. Good eye contact. Appropriate mood and affect. SKIN: Warm, dry LABS HOSPITAL COURSE: Date of Admission:01/18/17 This is a 76 yo M with PMH of HTN, HLD, Breast CA, Bone CA, hemorrhoids, who presents with rectal bleed. She states that yeterday mornign she woke up with sharp LLQ pain and had an episode of bloody diarrhea. She then visited [facility] ED here, was given IV abx and sent home. This morning she had another episode of hematochezia and intermittent in severity LLQ pain. She has not been drinking water or eating since yesterday morning. This has never happened before. Her last colonoscopy was in 2012 and was WNL according to her son. She had an episode of bleeding hemorrhoids in the s that have not recurred. She has no family Hx of Gi CA. She deneis f/c, n/v, dizzness, edema, chest pain, h/a or dysuria. She does admit to frequent constipation. Date of Discharge: 01/18/17 Discharge Summary Reason For Visit: GI HEMORRHAGE Current Active Problems Abdominal pain (Acute) Acute ischemic colitis (Acute) Colitis (Acute) GI bleeding (Acute) Condition: Improved - Instructions Referrals: Danny Barker MD [Primary Care Provider] - - Home Medications Comprehensive Discharge Medication List: Ambulatory Orders Anastrozole [Arimidex -] 1 mg PO HS 01/14/17 Calcium (Oyster Shell) [Os-[place] 500Mg -] 500 mg PO DAILY 01/14/17 Cholecalciferol (Vitamin D3) [Vitamin D3 -] 1,000 unit PO DAILY 01/14/17 Multivitamin [Poly-Vitamin] 1 each PO DAILY 01/14/17 Simvastatin [Zocor -] 20 mg PO HS 01/14/17 Verapamil HCl [Calan] 240 mg PO DAILY 01/14/17 Problem List - Problems (1) Colitis Code(s): K52.9 - NONINFECTIVE GASTROENTERITIS AND COLITIS, UNSPECIFIED (2) GI bleeding Code(s): K92.2 - GASTROINTESTINAL HEMORRHAGE, UNSPECIFIED Qualifiers: GI bleed type/associated pathology: unspecified gastrointestinal hemorrhage type Qualified Code(s): K92.2 - Gastrointestinal hemorrhage, unspecified (3) DVT prophylaxis Code(s): [id number] - (4) Dehydration Code(s): E86.0 - DEHYDRATION (5) Dizziness Code(s): R42 - DIZZINESS AND GIDDINESS (6) Hyperlipidemia Code(s): E78.5 - HYPERLIPIDEMIA, UNSPECIFIED (7) Hypertension Code(s): I10 - ESSENTIAL (PRIMARY) HYPERTENSION
--- NOTE | 2017-01-18 16:26 | PN ---
Physical Exam: SUBJECTIVE: Patient seen and examined Patient resting in bed NAD. No acute events. afebrile and hemodynamically stable. s/p flex sig today, uncomplicated. toelrating full liquid diet. feels well. denies and pain or further episodes of melena/hematochezia. denies n/v. OBJECTIVE: Vital Signs Period Temp Pulse Resp BP Sys/Velásquez Pulse Ox Last 24 Hr 98.8 F 92 20 135/70 GENERAL: Awake, alert, and fully oriented, in no acute distress. HEAD: Normal with no signs of trauma. EYES: Pupils equal, round and reactive to light, extraocular movements intact, sclera anicteric, conjunctiva clear. EARS, NOSE, THROAT:Moist mucous membranes. NECK: supple without JVD LUNGS: Breath sounds equal, clear to auscultation bilaterally. HEART: Regular rate and rhythm, normal S1 and S2 ABDOMEN: Soft, nontender, nondistended, + bowel sounds, no guarding, no rebound , no masses. No hepatomegaly or splenomegaly. MUSCULOSKELETAL:No CVA tenderness. UPPER EXTREMITIES: 2+ pulses, warm, well-perfused. No peripheral edema. LOWER EXTREMITIES: 2+ pulses, warm, well-perfused. No calf tenderness. No peripheral edema. NEUROLOGICAL: Cranial nerves II-XII grossly intact. Normal speech. PSYCHIATRIC: Cooperative. Good eye contact. Appropriate mood and affect. SKIN: Warm, dry Active Medications Generic Name Dose Route Start Last Admin Trade Name Freq PRN Reason Stop Dose Admin Acetaminophen 1,000 mg 01/15/17 15:29 Ofirmev Injection - IVPB Q6H PRN PAIN Anastrozole 1 mg 01/17/17 22:00 01/17/17 21:18 Arimidex - PO 1 mg HS JOSÉ Administration Ceftriaxone Sodium 1 gm 01/16/17 10:00 01/18/17 12:00 Rocephin 1gm Ivpb (Pre-Docked) IVPB 1 gm DAILY JOSÉ Administration Protocol Metronidazole 100 mls @ 100 mls/hr 01/15/17 15:30 01/18/17 15:02 Flagyl 500mg Premixed Ivpb - IVPB 100 mls/hr Q6H-IV JOSÉ Administration Sodium Chloride 1,000 mls @ 75 mls/hr 01/15/17 16:30 01/17/17 18:21 Normal Saline - IV Not Given ASDIR JOSÉ Verapamil HCl 240 mg 01/17/17 18:00 01/18/17 12:00 Calan Sr - PO 240 mg DAILY JOSÉ Administration ASSESSMENT/PLAN: This is a 76 yo M with PMH of HTN, HLD, Breast CA, Bone CA, hemorrhoids, who presents with rectal bleed. Acute L sided colitis -CT abd: acute L sided colitis, cholelithiasis, diverticulosis -leukocytosis resolved -IV flagyl, rocephin day 4 -GI consult appreciated, s/p flex sig consistent with ischemic colitis -IV tylenol prn pain -advance to regular diet GIB -no further episodes -h/h stable, trend cbc SERGIO -resolved -likely due to dehydration -unknown baseline -IV hydration HTN -verapamil FEN NS @ 75 hyperchloremia regular na restricted diet Dispo: admit med reny Problem List - Problems (1) Colitis Code(s): K52.9 - NONINFECTIVE GASTROENTERITIS AND COLITIS, UNSPECIFIED (2) GI bleeding Code(s): K92.2 - GASTROINTESTINAL HEMORRHAGE, UNSPECIFIED Qualifiers: GI bleed type/associated pathology: unspecified gastrointestinal hemorrhage type Qualified Code(s): K92.2 - Gastrointestinal hemorrhage, unspecified (3) DVT prophylaxis Code(s): [id number] - (4) Dehydration Code(s): E86.0 - DEHYDRATION (5) Dizziness Code(s): R42 - DIZZINESS AND GIDDINESS (6) Hyperlipidemia Code(s): E78.5 - HYPERLIPIDEMIA, UNSPECIFIED (7) Hypertension Code(s): I10 - ESSENTIAL (PRIMARY) HYPERTENSION Visit type - Emergency Visit Emergency Visit: Yes ED Registration Date: 01/18/17 Care time: The patient presented to the Emergency Department on the above date and was hospitalized for further evaluation of their emergent condition. - New Patient This patient is new to me today: No - Critical Care Critical Care patient: No - Discharge Referral Referred to [facility] No
[2017-01-18] MEDS ORDERED: ACETAMINOPHEN 325 MG TABLET (FP) PO PRN (16:59)
[2017-01-18] MEDS: ANASTROZOLE 1 MG TABLET PO SCH (22:02)
[2017-01-19 10:04] LABS: BASOPHIL 0.7 % (0-2.0); EOSINOPHIL 2.9 % (0-4.5); MCH 27.1 pg (25.7-33.7); MCHC 32.7 g/dl (32.0-36.0); MEAN CELL VOLUME 82.9 fl (80-96); MEAN PLT VOLUME 8.2 fl (7.5-11.1); NEUTROPHILS 74.3 % (42.8-82.8); PLATELET COUNT 172 K/MM3 (134-434); RDW 14.6 % (11.6-15.6); WHITE BLOOD COUNT 6.5 K/mm3 (4.0-10.0)
[2017-01-19 10:16] LABS: CALCIUM 8.6 mg/dL (8.5-10.1)
[2017-01-19] MEDS ORDERED: POTASSIUM CHLORIDE TABS 20 MEQ TABLET.ER (FP) PO ONE (10:45)
[2017-01-19 10:55] LABS: C-REACTIVE PROTEIN 2.9 MG/DL (0.00-0.3)
[2017-01-19 11:30] VITALS: BP 106/71; PULSE 94; TEMP 98.4
--- NOTE | 2017-01-19 11:30 | DS ---
Physical Exam: SUBJECTIVE: Patient seen and examined Patient resting in bed NAD. No acute events. afebrile and hemodynamically stable. s/p flex sig yesterday, uncomplicated. tolerating regular diet. feels well. denies abd pain or further episodes of melena/hematochezia. denies n/v. OBJECTIVE: Vital Signs Period Temp Pulse Resp BP Sys/Velásquez Pulse Ox Last 24 Hr 97.9 F-98.8 F 81-94 18-20 106-139/60-71 100-100 PHYSICAL EXAM GENERAL: Awake, alert, and fully oriented, in no acute distress. HEAD: Normal with no signs of trauma. EYES: Pupils equal, round and reactive to light, extraocular movements intact, sclera anicteric, conjunctiva clear. EARS, NOSE, THROAT:Moist mucous membranes. NECK: supple without JVD LUNGS: Breath sounds equal, clear to auscultation bilaterally. HEART: Regular rate and rhythm, normal S1 and S2 ABDOMEN: Soft, nontender, nondistended, + bowel sounds, no guarding, no rebound , no masses. No hepatomegaly or splenomegaly. MUSCULOSKELETAL:No CVA tenderness. UPPER EXTREMITIES: 2+ pulses, warm, well-perfused. No peripheral edema. LOWER EXTREMITIES: 2+ pulses, warm, well-perfused. No calf tenderness. No peripheral edema. NEUROLOGICAL: Cranial nerves II-XII grossly intact. Normal speech. PSYCHIATRIC: Cooperative. Good eye contact. Appropriate mood and affect. SKIN: Warm, dry LABS Laboratory Results - last 24 hr 01/19/17 01/19/17 07:30 07:30 WBC 6.5 D RBC 4.49 Hgb 12.2 Hct 37.2 MCV 82.9 MCHC 32.7 RDW 14.6 Plt Count 172 MPV 8.2 Neutrophils % 74.3 Lymphocytes % 14.5 Monocytes % 7.6 Eosinophils % 2.9 Basophils % 0.7 Sodium 144 Potassium 3.3 L Chloride 110 H Carbon Dioxide 22 Anion Gap 12 BUN 7 Creatinine 1.0 Random Glucose 93 Calcium 8.6 C-Reactive Protein 2.9 H HOSPITAL COURSE: Date of Admission:01/15/17 This is a 76 yo M with PMH of HTN, HLD, Breast CA, Bone CA, hemorrhoids, who presented with rectal bleed. She stated that the mornign before admission she woke up with sharp LLQ pain and had an episode of bloody diarrhea. She then visited [facility] ED here, was given IV abx and sent home. The morning of admission she had another episode of hematochezia and intermittent LLQ pain. She has not been drinking water or eating for 2 days prior. This has never happened before. Her last colonoscopy was in 2012 and was WNL according to her son. She had an episode of bleeding hemorrhoids in the 's that have not recurred. She has no family Hx of Gi CA. She was diagnosed with Acute L sided ischemic colitis, as per CT abd: acute L sided colitis, cholelithiasis, diverticulosis. She was evaluated by Gi and treated with IV flagyl and rocephin. The day before d/c she had a flexible sigmoidoscopy done consistent with ischemic colitis. She was asymptomatic, had normal BM and tolerated regular diet. Her christy resoved over admission with IVF. She was asked to f/u with GI and PCP. Date of Discharge: 01/19/17 Minutes to complete discharge: 30 (na) Discharge Summary Reason For Visit: GI HEMORRHAGE Current Active Problems Abdominal pain (Acute) Acute ischemic colitis (Acute) Colitis (Acute) GI bleeding (Acute) Condition: Good - Instructions Diet, Activity, Other Instructions: You were hospitalized for bleed from gastrointestinal tract and were found to have Acute Left sided ischemic colitis. You had a flexible sigmoidoscopy done to confirm diagnosis. Your symptoms resolved. Please follow up with your Primary doctor and with Gastroenterology in 1 week. Have blood work (CBC) done in 1 week Return to hospital if symptoms resume. Referrals: Danny Barker MD [Primary Care Provider] - 1 Week Blu Magallanes MD [Staff Physician] - 1 Week Disposition: HOME - Home Medications Comprehensive Discharge Medication List: Ambulatory Orders Anastrozole [Arimidex -] 1 mg PO HS 01/14/17 Calcium (Oyster Shell) [Os-[place] 500Mg -] 500 mg PO DAILY 01/14/17 Cholecalciferol (Vitamin D3) [Vitamin D3 -] 1,000 unit PO DAILY 01/14/17 Multivitamin [Poly-Vitamin] 1 each PO DAILY 01/14/17 Simvastatin [Zocor -] 20 mg PO HS 01/14/17 Verapamil HCl [Calan] 240 mg PO DAILY 01/14/17 Problem List - Problems (1) Colitis Code(s): K52.9 - NONINFECTIVE GASTROENTERITIS AND COLITIS, UNSPECIFIED (2) GI bleeding Code(s): K92.2 - GASTROINTESTINAL HEMORRHAGE, UNSPECIFIED Qualifiers: GI bleed type/associated pathology: unspecified gastrointestinal hemorrhage type Qualified Code(s): K92.2 - Gastrointestinal hemorrhage, unspecified (3) DVT prophylaxis Code(s): ETE5411 - (4) Dehydration Code(s): E86.0 - DEHYDRATION (5) Dizziness Code(s): R42 - DIZZINESS AND GIDDINESS (6) Hyperlipidemia Code(s): E78.5 - HYPERLIPIDEMIA, UNSPECIFIED (7) Hypertension Code(s): I10 - ESSENTIAL (PRIMARY) HYPERTENSION This patient is new to me today: No Emergency Visit: Yes ED Registration Date: 01/15/17 Care time: The patient presented to the Emergency Department on the above date and was hospitalized for further evaluation of their emergent condition. Critical Care patient: No - Discharge Referral Referred to [facility] No
--- NOTE | 2017-01-19 11:47 | PATH ---
Surgical Pathology Report Patient Name: GRETCHEN VELASQUEZ [facility]. Rec. #: [id number] /Age/Gender: 1940 (Age: 76) / F Account: <[id number]> Location: EMERGENCY ROOM Taken: 01/18/2017 Received: 01/18/2017 Reported: 01/19/2017 Physicians: Alonzo Solis M.D. Specimen(s) Received BX DESCENDING COLON Clinical History Rectal bleeding Diverticulosis, ischemic colitis Final Diagnosis COLON, DESCENDING, BIOPSY: COLONIC MUCOSA WITH FOCAL CHANGES CONSISTENT WITH ISCHEMIC COLITIS. SUBMUCOSAL VASCULAR ECTASIA IS PRESENT. Electronically Signed Marino Head M.D. Gross Description Received in formalin, labeled "biopsy descending colon" are 3 forrester, irregular portions of soft tissue ranging from 0.1-0.4 cm. in greatest dimension. The specimens are submitted in toto in one cassette. /01/18/2017 saudi01/18/2017
--- NOTE | 2017-01-19 13:56 | PN ---
Teaching Attending Note Name of Resident: Trish Rose ATTENDING PHYSICIAN STATEMENT I saw and evaluated the patient. I reviewed the resident's note and discussed the case with the resident. I agree with the resident's findings and plan as documented. SUBJECTIVE: no fever or chills. no ABd pain. no diarrhea OBJECTIVE: NAD CV : RRR Lungs : CTAB e xt : no edema Abd : soft, NT, ND , NL BS ASSESSMENT AND PLAN: 76 y/o lady with h/o HTN who presented with Abd pain and GI bleed , was found to have L sided ischemic colitis . 1- ischemic colitis : probably due to transient hypotension from volume depletion or from GI bleed ___> ischemia . no evidence of bacterial infection . no more diarrhea, no need for Abx. avoid hypotension cont with oral hydration f/u with GI 2- HTN cont verapamil dc home . f/u with GI and PCP
== END 2017-01-19 13:06 | disposition home or self-care (01) | DRG 394 ==
LOC: JER 11:13 → J8W 14:51 → INTOOBSV 14:51 → JERBED 14:51 → UNDOADMOB 14:51 → J8W 14:51 → JER 15:45 → J8W 16:36 → JERBED 16:36 → UNDOADMOB 01-18 15:22 → J8W 01-18 15:22
PROVIDERS: ADMIT Internal Medicine; ATTEND Internal Medicine
PROC: 0DBN8ZX Excision of Sigmoid Colon, Via Natural or Artificial Opening Endoscopic, Diagnostic (ICD-10-PCS; principal; 2017-01-18 09:00)
DX: K55.9 Vascular disorder of intestine, unspecified (principal); N17.9 Acute kidney failure, unspecified; K92.2 Gastrointestinal hemorrhage, unspecified; K57.30 Diverticulosis of large intestine without perforation or abscess without bleeding; I10 Essential (primary) hypertension; E78.5 Hyperlipidemia, unspecified; Z85.3 Personal history of malignant neoplasm of breast; Z85.830 Personal history of malignant neoplasm of bone; E86.0 Dehydration; D72.829 Elevated white blood cell count, unspecified; K80.20 Calculus of gallbladder without cholecystitis without obstruction
CPT/HCPCS: 36415; 74176-TC; 80048; 80053; 83735; 84100; 85025; 85027; 85610; 85730; 86140; 86850; 86870; 86900; 86901; 86902; 87045; 87046; 87177; 87209; 87328; 87329; 88305-TC; 93005; 93010; 99283-25; 99284-25

== ENCOUNTER 2017-05-24 07:22 | Day surgery (SDC) | payer OTHER, BC ==
[2017-05-24] MEDS ORDERED: FULVESTRANT 250 MG/5 ML SYRINGE IM ONE (08:00)
[2017-05-24] MEDS ORDERED: ZOLEDRONIC ACID 3 MG in SODIUM CHLORIDE 100 ML IVPB ONE (08:30)
[2017-05-24 11:15] VITALS: BP 128/84; PULSE 103; TEMP 98.3
== END 2017-05-24 14:00 | disposition home or self-care (01) ==
LOC: JONCCHEMO 07:22 → J7W 12:15 → JONCCHEMO 14:00
PROVIDERS: ATTEND Internal Medicine Hematology & Oncology
PROC: 3E01305 Introduction of Other Antineoplastic into Subcutaneous Tissue, Percutaneous Approach (ICD-10-PCS; principal; 2017-05-24)
PROC: 3E033GC Introduction of Other Therapeutic Substance into Peripheral Vein, Percutaneous Approach (ICD-10-PCS; 2017-05-24)
DX: Z51.11 Encounter for antineoplastic chemotherapy (principal); C50.919 Malignant neoplasm of unspecified site of unspecified female breast
CPT/HCPCS: 96365; 96402; 96417; J3489; J9395

== ENCOUNTER 2017-06-21 07:41 | Day surgery (SDC) | payer OTHER, BC ==
[2017-06-21] MEDS ORDERED: ZOLEDRONIC ACID 3 MG in SODIUM CHLORIDE 100 ML IVPB ONE (09:00)
[2017-06-21] MEDS ORDERED: FULVESTRANT 250 MG/5 ML SYRINGE IM ONE (10:00)
[2017-06-21 10:30] LABS: EOSINOPHIL 2.3 % (0-4.5); MCH 27.2 pg (25.7-33.7); MCHC 32.3 g/dl (32.0-36.0); MEAN CELL VOLUME 84.1 fl (80-96); MEAN PLT VOLUME 8.5 fl (7.5-11.1); PLATELET COUNT 197 K/MM3 (134-434); WHITE BLOOD COUNT 6.1 K/mm3 (4.0-10.0)
[2017-06-21 10:59] LABS: ALBUMIN 3.9 g/dl (3.4-5.0); ANION GAP 10 (8-16); BILIRUBIN,DIRECT 0.2 mg/dL (0.0-0.2); CALCIUM 9.7 mg/dL (8.5-10.1); CO2 25 mmol/L (21-32); GLUCOSE,RANDOM 119 mg/dL (74-106); MAGNESIUM 2.2 mg/dL (1.8-2.4); SGOT/AST 21 U/L (15-37); SGPT/ALT 23 U/L (12-78); TOT PROT 7.2 g/dl (6.4-8.2)
[2017-06-21 11:02] LABS: ALK PHOS 71 U/L (45-117); BILIRUBIN,TOTAL 0.8 mg/dL (0.2-1.0); CREATININE 1.3 mg/dL (0.55-1.02)
[2017-06-21 15:19] VITALS: TEMP 97.6
[2017-06-21 18:04] VITALS: BP 101/68; PULSE 62
== END 2017-06-21 18:05 | disposition home or self-care (01) ==
LOC: JONCCHEMO 07:41 → J7W 11:46 → JONCCHEMO 18:05
PROVIDERS: ATTEND Internal Medicine Hematology & Oncology
PROC: 3E01305 Introduction of Other Antineoplastic into Subcutaneous Tissue, Percutaneous Approach (ICD-10-PCS; principal; 2017-06-21)
PROC: 3E033GC Introduction of Other Therapeutic Substance into Peripheral Vein, Percutaneous Approach (ICD-10-PCS; 2017-06-21)
DX: Z51.11 Encounter for antineoplastic chemotherapy (principal); C50.919 Malignant neoplasm of unspecified site of unspecified female breast; C79.51 Secondary malignant neoplasm of bone
CPT/HCPCS: 36415; 80053; 80076; 82378; 83735; 85025; 86300; 96402; 96417; J3489; J9395

== ENCOUNTER 2017-07-19 07:56 | Day surgery (SDC) | payer OTHER, BC ==
[2017-07-19] MEDS ORDERED: ZOLEDRONIC ACID 3 MG in SODIUM CHLORIDE 100 ML IVPB ONE (08:30)
[2017-07-19 10:56] VITALS: TEMP 97.9
[2017-07-19 11:12] LABS: BASOPHIL 0.8 % (0-2.0); EOSINOPHIL 2.2 % (0-4.5); MCH 26.9 pg (25.7-33.7); MCHC 32.5 g/dl (32.0-36.0); MEAN CELL VOLUME 82.6 fl (80-96); MEAN PLT VOLUME 8.2 fl (7.5-11.1); NEUTROPHILS 62.9 % (42.8-82.8); PLATELET COUNT 193 K/MM3 (134-434); RDW 14.5 % (11.6-15.6); WHITE BLOOD COUNT 6.4 K/mm3 (4.0-10.0)
[2017-07-19 11:45] LABS: ALBUMIN 3.9 g/dl (3.4-5.0); ALK PHOS 84 U/L (45-117); ANION GAP 11 (8-16); BILIRUBIN,DIRECT 0.1 mg/dL (0.0-0.2); BILIRUBIN,TOTAL 0.6 mg/dL (0.2-1.0); CALCIUM 9.6 mg/dL (8.5-10.1); CO2 26 mmol/L (21-32); CREATININE 1.4 mg/dL (0.55-1.02); GLUCOSE,RANDOM 122 mg/dL (74-106); MAGNESIUM 2.4 mg/dL (1.8-2.4); SGOT/AST 30 U/L (15-37); SGPT/ALT 29 U/L (12-78); TOT PROT 7.2 g/dl (6.4-8.2)
[2017-07-19 13:31] VITALS: BP 139/69; PULSE 86
[2017-07-20] MEDS ORDERED: FULVESTRANT 250 MG/5 ML SYRINGE IM ONE (08:00)
== END 2017-07-19 14:00 | disposition home or self-care (01) ==
LOC: JONCCHEMO 07:56 → J7W 12:30 → JONCCHEMO 14:00
PROVIDERS: ATTEND Internal Medicine Hematology & Oncology
PROC: 3E033GC Introduction of Other Therapeutic Substance into Peripheral Vein, Percutaneous Approach (ICD-10-PCS; principal; 2017-07-19)
DX: C50.919 Malignant neoplasm of unspecified site of unspecified female breast (principal); C79.51 Secondary malignant neoplasm of bone
CPT/HCPCS: 36415; 80053; 80076; 82378; 83735; 85025; 86300; 96365; 96417; J3489; J9395

== ENCOUNTER 2017-08-16 07:33 | Day surgery (SDC) | payer OTHER, BC ==
[2017-08-16 09:36] LABS: BASOPHIL 1.1 % (0-2.0); EOSINOPHIL 1.8 % (0-4.5); MCH 26.6 pg (25.7-33.7); MCHC 31.8 g/dl (32.0-36.0); MEAN CELL VOLUME 83.8 fl (80-96); MEAN PLT VOLUME 7.9 fl (7.5-11.1); NEUTROPHILS 67.1 % (42.8-82.8); PLATELET COUNT 193 K/MM3 (134-434); RDW 15.1 % (11.6-15.6)
[2017-08-16] MEDS ORDERED: ZOLEDRONIC ACID 3 MG in SODIUM CHLORIDE 100 ML IVPB ONE (10:00)
[2017-08-16 10:08] LABS: ALBUMIN 3.7 g/dl (3.4-5.0); ALK PHOS 73 U/L (45-117); ANION GAP 8 (8-16); BILIRUBIN,DIRECT 0.2 mg/dL (0.0-0.2); BILIRUBIN,TOTAL 0.7 mg/dL (0.2-1.0); CALCIUM 9.6 mg/dL (8.5-10.1); CO2 24 mmol/L (21-32); GLUCOSE,RANDOM 118 mg/dL (74-106); MAGNESIUM 2.3 mg/dL (1.8-2.4); SGOT/AST 19 U/L (15-37); SGPT/ALT 19 U/L (12-78); TOT PROT 7.4 g/dl (6.4-8.2)
[2017-08-16] MEDS ORDERED: FULVESTRANT 250 MG/5 ML SYRINGE IM ONE (10:45)
[2017-08-16 12:43] VITALS: BP 117/68; PULSE 78; TEMP 97.8
== END 2017-08-16 12:10 | disposition home or self-care (01) ==
LOC: JONCCHEMO 07:33 → J7W 10:24 → JONCCHEMO 12:10
PROVIDERS: ATTEND Internal Medicine Hematology & Oncology
PROC: 3E01305 Introduction of Other Antineoplastic into Subcutaneous Tissue, Percutaneous Approach (ICD-10-PCS; principal; 2017-08-16)
PROC: 3E033GC Introduction of Other Therapeutic Substance into Peripheral Vein, Percutaneous Approach (ICD-10-PCS; 2017-08-16)
DX: Z51.11 Encounter for antineoplastic chemotherapy (principal); C50.919 Malignant neoplasm of unspecified site of unspecified female breast; C79.51 Secondary malignant neoplasm of bone
CPT/HCPCS: 36415; 80053; 80076; 83735; 85025; 96365; 96402; 96417; J3489; J9395

== ENCOUNTER 2017-09-13 07:17 | Day surgery (SDC) | payer OTHER, BC ==
[2017-09-13] MEDS ORDERED: FULVESTRANT 250 MG/5 ML SYRINGE IM ONE (08:00)
[2017-09-13] MEDS ORDERED: ZOLEDRONIC ACID 3 MG in SODIUM CHLORIDE 100 ML IVPB ONE (08:30)
[2017-09-13 09:34] LABS: BASOPHIL 1.1 % (0-2.0); EOSINOPHIL 1.9 % (0-4.5); MCHC 32.2 g/dl (32.0-36.0); MEAN CELL VOLUME 83.9 fl (80-96); MEAN PLT VOLUME 8.1 fl (7.5-11.1); NEUTROPHILS 58.3 % (42.8-82.8); PLATELET COUNT 178 K/MM3 (134-434); RDW 15.2 % (11.6-15.6); WHITE BLOOD COUNT 5.9 K/mm3 (4.0-10.0)
[2017-09-13 10:03] LABS: ALBUMIN 3.6 g/dl (3.4-5.0); ALK PHOS 74 U/L (45-117); ANION GAP 9 (8-16); BILIRUBIN,DIRECT 0.2 mg/dL (0.0-0.2); BILIRUBIN,TOTAL 0.7 mg/dL (0.2-1.0); CO2 24 mmol/L (21-32); CREATININE 1.6 mg/dL (0.55-1.02); GLUCOSE,RANDOM 122 mg/dL (74-106); MAGNESIUM 2.2 mg/dL (1.8-2.4); SGOT/AST 21 U/L (15-37); SGPT/ALT 19 U/L (12-78); TOT PROT 6.9 g/dl (6.4-8.2)
[2017-09-13 11:57] VITALS: BP 138/82; PULSE 82; TEMP 98.2
== END 2017-09-13 11:20 | disposition home or self-care (01) ==
LOC: JONCCHEMO 07:17 → J7W 10:03 → JONCCHEMO 11:20
PROVIDERS: ATTEND Internal Medicine Hematology & Oncology
PROC: 3E02305 Introduction of Other Antineoplastic into Muscle, Percutaneous Approach (ICD-10-PCS; principal; 2017-09-13)
PROC: 3E033GC Introduction of Other Therapeutic Substance into Peripheral Vein, Percutaneous Approach (ICD-10-PCS; 2017-09-13)
DX: Z51.11 Encounter for antineoplastic chemotherapy (principal); C50.411 Malignant neoplasm of upper-outer quadrant of right female breast; C79.51 Secondary malignant neoplasm of bone
CPT/HCPCS: 36415; 80053; 80076; 83735; 85025; 96402; 96417; J3489; J9395

== ENCOUNTER 2017-10-11 07:46 | Day surgery (SDC) | payer OTHER, BC ==
[2017-10-11] MEDS ORDERED: FULVESTRANT 250 MG/5 ML SYRINGE IM ONE (08:00)
[2017-10-11] MEDS ORDERED: ZOLEDRONIC ACID 3 MG in SODIUM CHLORIDE 100 ML IVPB ONE (08:30)
[2017-10-11 09:31] LABS: EOSINOPHIL 1.3 % (0-4.5); MCH 27.9 pg (25.7-33.7); MCHC 32.5 g/dl (32.0-36.0); MEAN CELL VOLUME 85.9 fl (80-96); MEAN PLT VOLUME 7.4 fl (7.5-11.1); NEUTROPHILS 28.6 % (42.8-82.8); PLATELET COUNT 257 K/MM3 (134-434); RDW 15.3 % (11.6-15.6); WHITE BLOOD COUNT 2.8 K/mm3 (4.0-10.0)
[2017-10-11 10:04] LABS: ALBUMIN 3.6 g/dl (3.4-5.0); ANION GAP 8 (8-16); BILIRUBIN,DIRECT 0.2 mg/dL (0.0-0.2); BILIRUBIN,TOTAL 0.5 mg/dL (0.2-1.0); CALCIUM 9.1 mg/dL (8.5-10.1); CO2 26 mmol/L (21-32); CREATININE 1.8 mg/dL (0.55-1.02); GLUCOSE,RANDOM 145 mg/dL (74-106); MAGNESIUM 2.1 mg/dL (1.8-2.4); SGOT/AST 23 U/L (15-37); SGPT/ALT 21 U/L (12-78); TOT PROT 6.9 g/dl (6.4-8.2)
[2017-10-11 10:05] LABS: ALK PHOS 71 U/L (45-117)
[2017-10-11 10:41] VITALS: TEMP 98.2
[2017-10-11 11:17] VITALS: BP 133/69; PULSE 104
== END 2017-10-11 11:15 | disposition home or self-care (01) ==
LOC: JONCCHEMO 07:46 → J7W 10:01 → JONCCHEMO 11:15
PROVIDERS: ATTEND Internal Medicine Hematology & Oncology
PROC: 3E01305 Introduction of Other Antineoplastic into Subcutaneous Tissue, Percutaneous Approach (ICD-10-PCS; principal; 2017-10-11)
PROC: 3E033GC Introduction of Other Therapeutic Substance into Peripheral Vein, Percutaneous Approach (ICD-10-PCS; 2017-10-11)
DX: Z51.11 Encounter for antineoplastic chemotherapy (principal); C50.411 Malignant neoplasm of upper-outer quadrant of right female breast; C79.51 Secondary malignant neoplasm of bone
CPT/HCPCS: 36415; 80053; 80076; 83735; 85025; 96365; 96402; 96417; J3489; J9395

== ENCOUNTER 2017-11-08 07:32 | Day surgery (SDC) | payer OTHER, BC ==
[2017-11-08 09:30] LABS: BASO % 2.3 % (0-2.0); EOS % 4.6 % (0-4.5); HEMATOCRIT 37.6 % (32.4-45.2); MCH 27.9 pg (25.7-33.7); MEAN CELL VOLUME 87.3 fl (80-96); MEAN PLT VOLUME 8.8 fl (7.5-11.1); MONO % 12.1 % (3.8-10.2); PLATELET COUNT 169 K/MM3 (134-434); RBC 4.31 M/mm3 (3.60-5.2); RDW 17.9 % (11.6-15.6); WHITE BLOOD COUNT 5.2 K/mm3 (4.0-10.0)
[2017-11-08 09:59] LABS: ALBUMIN 3.5 g/dl (3.4-5.0); ALK PHOS 75 U/L (45-117); ANION GAP 9 (8-16); BILIRUBIN,DIRECT < 0.2 mg/dL (0.0-0.2); BILIRUBIN,TOTAL 0.5 mg/dL (0.2-1.0); BLOOD UREA NITROGEN 32 mg/dL (7-18); CHLORIDE 111 mmol/L (98-107); CO2 24 mmol/L (21-32); CREATININE 1.8 mg/dL (0.55-1.02); GLUCOSE,RANDOM 103 mg/dL (74-106); MAGNESIUM 2.3 mg/dL (1.8-2.4); SGOT/AST 19 U/L (15-37); SGPT/ALT 20 U/L (12-78); SODIUM 144 mmol/L (136-145); TOT PROT 6.9 g/dl (6.4-8.2)
[2017-11-08] MEDS ORDERED: ZOLEDRONIC ACID 3 MG in SODIUM CHLORIDE 100 ML IVPB ONE (10:00)
[2017-11-08] MEDS ORDERED: ZOLEDRONIC ACID 4 MG in SODIUM CHLORIDE 100 ML IVPB ONE (10:00)
[2017-11-08] MEDS ORDERED: FULVESTRANT 250 MG/5 ML SYRINGE IM ONE (11:00)
[2017-11-08 12:07] VITALS: TEMP 98.5
[2017-11-08 12:10] VITALS: BP 139/74; PULSE 106
== END 2017-11-08 11:15 | disposition home or self-care (01) ==
LOC: JONCCHEMO 07:32 → JONCNONCHE 07:32 → J7W 09:52 → JONCCHEMO 11:15
PROVIDERS: ATTEND Internal Medicine Hematology & Oncology
PROC: 3E02305 Introduction of Other Antineoplastic into Muscle, Percutaneous Approach (ICD-10-PCS; principal; 2017-11-08)
PROC: 3E033GC Introduction of Other Therapeutic Substance into Peripheral Vein, Percutaneous Approach (ICD-10-PCS; 2017-11-08)
DX: Z51.11 Encounter for antineoplastic chemotherapy (principal); C50.411 Malignant neoplasm of upper-outer quadrant of right female breast; C79.51 Secondary malignant neoplasm of bone
CPT/HCPCS: 36415; 80053; 80076; 83735; 85025; 96365; 96402; 96417; J3489; J9395

== ENCOUNTER 2017-12-06 07:35 | Day surgery (SDC) | payer OTHER, BC ==
[2017-12-06] MEDS ORDERED: FULVESTRANT 250 MG/5 ML SYRINGE IM ONE (08:00)
[2017-12-06] MEDS ORDERED: ZOLEDRONIC ACID 3 MG in SODIUM CHLORIDE 100 ML IVPB ONE (08:30)
[2017-12-06 10:07] LABS: BASO % 0.8 % (0-2.0); EOS % 1.5 % (0-4.5); HEMATOCRIT 36.3 % (32.4-45.2); HEMOGLOBIN 11.5 GM/dL (10.7-15.3); LYMPH % 49.8 % (8-40); MCH 27.8 pg (25.7-33.7); MCHC 31.6 g/dl (32.0-36.0); MEAN CELL VOLUME 88.1 fl (80-96); MEAN PLT VOLUME 8.6 fl (7.5-11.1); MONO % 2.8 % (3.8-10.2); NEUT % 45.1 % (42.8-82.8); PLATELET COUNT 118 K/MM3 (134-434); RBC 4.12 M/mm3 (3.60-5.2); RDW 15.9 % (11.6-15.6); WHITE BLOOD COUNT 2.2 K/mm3 (4.0-10.0)
[2017-12-06 10:37] LABS: ALBUMIN 3.7 g/dl (3.4-5.0); ALK PHOS 70 U/L (45-117); ANION GAP 11 (8-16); BILIRUBIN,DIRECT 0.2 mg/dL (0.0-0.2); BILIRUBIN,TOTAL 0.7 mg/dL (0.2-1.0); BLOOD UREA NITROGEN 27 mg/dL (7-18); CHLORIDE 108 mmol/L (98-107); CO2 23 mmol/L (21-32); CREATININE 2.2 mg/dL (0.55-1.02); GLUCOSE,RANDOM 120 mg/dL (74-106); MAGNESIUM 1.9 mg/dL (1.8-2.4); POTASSIUM 3.7 mmol/L (3.5-5.1); SGOT/AST 16 U/L (15-37); SGPT/ALT 18 U/L (12-78); SODIUM 142 mmol/L (136-145); TOT PROT 7.1 g/dl (6.4-8.2)
[2017-12-06] MEDS ORDERED: TBO-FILGRASTIM 480 MCG/0.8 ML DISP.SYRIN SQ ONE (12:00)
[2017-12-06 15:51] VITALS: BP 139/76; PULSE 90; TEMP 98.1
== END 2017-12-06 12:20 | disposition home or self-care (01) ==
LOC: JONCCHEMO 07:35 → J7W 11:56 → JONCCHEMO 12:20
PROVIDERS: ATTEND Internal Medicine Hematology & Oncology
DX: Z51.11 Encounter for antineoplastic chemotherapy (principal); C50.411 Malignant neoplasm of upper-outer quadrant of right female breast; C79.51 Secondary malignant neoplasm of bone
CPT/HCPCS: 36415; 80053; 80076; 83735; 85025; 96402; J1447; J9395

== ENCOUNTER 2018-01-03 07:17 | Day surgery (SDC) | payer OTHER, BC ==
[2018-01-03] MEDS ORDERED: ZOLEDRONIC ACID 3 MG in SODIUM CHLORIDE 100 ML IVPB ONE (09:00)
[2018-01-03 09:34] VITALS: TEMP 97.9
[2018-01-03 09:52] LABS: BASO % 2.6 % (0-2.0); EOS % 0.7 % (0-4.5); HEMATOCRIT 35.5 % (32.4-45.2); HEMOGLOBIN 11.7 GM/dL (10.7-15.3); LYMPH % 29.6 % (8-40); MCH 30.4 pg (25.7-33.7); MCHC 32.8 g/dl (32.0-36.0); MEAN CELL VOLUME 92.6 fl (80-96); MEAN PLT VOLUME 8.3 fl (7.5-11.1); MONO % 2.9 % (3.8-10.2); NEUT % 64.2 % (42.8-82.8); PLATELET COUNT 209 K/MM3 (134-434); RBC 3.84 M/mm3 (3.60-5.2); RDW 19.7 % (11.6-15.6); WHITE BLOOD COUNT 3.7 K/mm3 (4.0-10.0)
[2018-01-03] MEDS ORDERED: FULVESTRANT 250 MG/5 ML SYRINGE IM ONE (10:00)
[2018-01-03 10:11] LABS: ALBUMIN 3.8 g/dl (3.4-5.0); ANION GAP 9 (8-16); BLOOD UREA NITROGEN 31 mg/dL (7-18); CHLORIDE 111 mmol/L (98-107); CO2 23 mmol/L (21-32); CREATININE 1.9 mg/dL (0.55-1.02); GLUCOSE,RANDOM 102 mg/dL (74-106); SGPT/ALT 18 U/L (12-78); SODIUM 143 mmol/L (136-145)
[2018-01-03 10:13] LABS: ALK PHOS 60 U/L (45-117); BILIRUBIN,TOTAL 0.9 mg/dL (0.2-1.0); TOT PROT 7.1 g/dl (6.4-8.2)
[2018-01-03 10:15] LABS: MAGNESIUM 2.1 mg/dL (1.8-2.4); POTASSIUM 4.2 mmol/L (3.5-5.1); SGOT/AST 28 U/L (15-37)
[2018-01-03 10:18] LABS: BILIRUBIN,DIRECT < 0.2 mg/dL (0.0-0.2)
[2018-01-03 17:06] VITALS: BP 155/62; PULSE 90
== END 2018-01-03 12:30 | disposition home or self-care (01) ==
LOC: JONCCHEMO 07:17 → J7W 10:27 → JONCCHEMO 12:30
PROVIDERS: ATTEND Internal Medicine Hematology & Oncology
PROC: 3E01305 Introduction of Other Antineoplastic into Subcutaneous Tissue, Percutaneous Approach (ICD-10-PCS; principal; 2018-01-03)
PROC: 3E033GC Introduction of Other Therapeutic Substance into Peripheral Vein, Percutaneous Approach (ICD-10-PCS; 2018-01-03)
DX: Z51.11 Encounter for antineoplastic chemotherapy (principal); C50.411 Malignant neoplasm of upper-outer quadrant of right female breast; C79.51 Secondary malignant neoplasm of bone
CPT/HCPCS: 36415; 80053; 80076; 83735; 85025; 96365; 96402; 96417; J3489; J9395

== ENCOUNTER 2018-02-07 07:15 | Day surgery (SDC) | payer OTHER, BC ==
[~2018-02-07 07:15] MED LIST: FULVESTRANT 250 MG/5 ML SYRINGE IM ONE; ZOLEDRONIC ACID 3 MG in SODIUM CHLORIDE 100 ML IVPB ONE
[2018-02-07] MEDS ORDERED: ZOLEDRONIC ACID 3 MG in SODIUM CHLORIDE 100 ML IVPB ONE (08:00)
[2018-02-07] MEDS ORDERED: FULVESTRANT 250 MG/5 ML SYRINGE IM ONE (08:00)
[2018-02-07 11:12] LABS: BASO % 1.2 % (0-2.0); EOS % 1.4 % (0-4.5); HEMATOCRIT 36.2 % (32.4-45.2); HEMOGLOBIN 11.9 GM/dL (10.7-15.3); MCH 30.3 pg (25.7-33.7); MCHC 32.9 g/dl (32.0-36.0); MEAN CELL VOLUME 92.3 fl (80-96); MEAN PLT VOLUME 8.3 fl (7.5-11.1); MONO % 3.8 % (3.8-10.2); NEUT % 64.6 % (42.8-82.8); PLATELET COUNT 230 K/MM3 (134-434); RBC 3.92 M/mm3 (3.60-5.2); RDW 18.9 % (11.6-15.6); WHITE BLOOD COUNT 3.4 K/mm3 (4.0-10.0)
[2018-02-07 11:29] LABS: ALBUMIN 3.9 g/dl (3.4-5.0); ANION GAP 9 (8-16); BILIRUBIN,DIRECT 0.2 mg/dL (0.0-0.2); BILIRUBIN,TOTAL 0.7 mg/dL (0.2-1.0); BLOOD UREA NITROGEN 28 mg/dL (7-18); CALCIUM 10.4 mg/dL (8.5-10.1); CHLORIDE 108 mmol/L (98-107); CO2 27 mmol/L (21-32); GLUCOSE,RANDOM 107 mg/dL (74-106); MAGNESIUM 2.1 mg/dL (1.8-2.4); POTASSIUM 4.1 mmol/L (3.5-5.1); SGOT/AST 20 U/L (15-37); SGPT/ALT 15 U/L (12-78); SODIUM 144 mmol/L (136-145); TOT PROT 7.5 g/dl (6.4-8.2)
[2018-02-07 11:30] LABS: ALK PHOS 66 U/L (45-117)
[2018-02-07 15:23] VITALS: TEMP 97.6
[2018-02-07 15:37] VITALS: BP 132/62; PULSE 89
== END 2018-02-07 12:50 | disposition home or self-care (01) ==
LOC: JONCCHEMO 07:15 → J7W 11:52 → JONCCHEMO 12:50
PROVIDERS: ATTEND Internal Medicine Hematology & Oncology
PROC: 3E01305 Introduction of Other Antineoplastic into Subcutaneous Tissue, Percutaneous Approach (ICD-10-PCS; principal; 2018-02-07)
PROC: 3E033GC Introduction of Other Therapeutic Substance into Peripheral Vein, Percutaneous Approach (ICD-10-PCS; 2018-02-07)
DX: Z51.11 Encounter for antineoplastic chemotherapy (principal); C50.411 Malignant neoplasm of upper-outer quadrant of right female breast; C79.51 Secondary malignant neoplasm of bone
CPT/HCPCS: 36415; 80053; 80076; 83735; 85025; 96365; 96402; 96417; J3489; J9395

== ENCOUNTER 2018-03-14 07:26 | Day surgery (SDC) | payer OTHER, BC ==
[2018-03-14] MEDS ORDERED: FULVESTRANT 250 MG/5 ML SYRINGE IM ONE (08:00)
[2018-03-14] MEDS ORDERED: ZOLEDRONIC ACID 3 MG in SODIUM CHLORIDE 100 ML IVPB ONE (08:00)
[2018-03-14 10:24] LABS: BASO % 1.2 % (0-2.0); EOS % 0.8 % (0-4.5); HEMATOCRIT 33.9 % (32.4-45.2); HEMOGLOBIN 11.5 GM/dL (10.7-15.3); LYMPH % 27.8 % (8-40); MCH 32.4 pg (25.7-33.7); MEAN CELL VOLUME 95.3 fl (80-96); MEAN PLT VOLUME 8.8 fl (7.5-11.1); MONO % 5.4 % (3.8-10.2); NEUT % 64.8 % (42.8-82.8); RBC 3.55 M/mm3 (3.60-5.2); RDW 17.4 % (11.6-15.6); WHITE BLOOD COUNT 4.1 K/mm3 (4.0-10.0)
[2018-03-14 10:42] LABS: ALBUMIN 3.9 g/dl (3.4-5.0); ANION GAP 11 (8-16); BILIRUBIN,TOTAL 0.7 mg/dL (0.2-1.0); BLOOD UREA NITROGEN 21 mg/dL (7-18); CALCIUM 9.6 mg/dL (8.5-10.1); CHLORIDE 110 mmol/L (98-107); CO2 24 mmol/L (21-32); CREATININE 2.1 mg/dL (0.55-1.02); GLUCOSE,RANDOM 129 mg/dL (74-106); POTASSIUM 3.5 mmol/L (3.5-5.1); SGOT/AST 21 U/L (15-37); SGPT/ALT 15 U/L (12-78); SODIUM 145 mmol/L (136-145); TOT PROT 6.9 g/dl (6.4-8.2)
[2018-03-14 10:43] LABS: ALK PHOS 56 U/L (45-117)
[2018-03-14 10:45] LABS: BILIRUBIN,DIRECT 0.2 mg/dL (0.0-0.2)
[2018-03-14] MEDS ORDERED: amLODIPine BESYLATE 5 MG TABLET (FP) PO ONE (10:45)
[2018-03-14 10:54] LABS: PLATELET COUNT 135 K/MM3 (134-434)
[2018-03-14 19:04] VITALS: BP 124/71; PULSE 101; TEMP 97.8
== END 2018-03-14 12:00 | disposition home or self-care (01) ==
LOC: JONCCHEMO 07:26 → J7W 10:41 → JONCCHEMO 12:00
PROVIDERS: ATTEND Internal Medicine Hematology & Oncology
DX: Z51.11 Encounter for antineoplastic chemotherapy (principal); C50.411 Malignant neoplasm of upper-outer quadrant of right female breast; C79.51 Secondary malignant neoplasm of bone
CPT/HCPCS: 36415; 80053; 80076; 83735; 85025; 96402; J9395

== ENCOUNTER 2018-04-11 07:26 | Day surgery (SDC) | payer OTHER, BC ==
[2018-04-11 09:00] LABS: BASO % 2.8 % (0-2.0); EOS % 0.9 % (0-4.5); HEMATOCRIT 30.1 % (32.4-45.2); HEMOGLOBIN 10.2 GM/dL (10.7-15.3); LYMPH % 56.7 % (8-40); MCH 32.9 pg (25.7-33.7); MCHC 33.8 g/dl (32.0-36.0); MEAN CELL VOLUME 97.4 fl (80-96); MEAN PLT VOLUME 8.7 fl (7.5-11.1); MONO % 11.8 % (3.8-10.2); NEUT % 27.8 % (42.8-82.8); PLATELET COUNT 162 K/MM3 (134-434); RBC 3.09 M/mm3 (3.60-5.2); RDW 16.4 % (11.6-15.6); WHITE BLOOD COUNT 2.1 K/mm3 (4.0-10.0)
[2018-04-11] MEDS ORDERED: ZOLEDRONIC ACID 3 MG in SODIUM CHLORIDE 100 ML IVPB ONE (09:00)
[2018-04-11 09:46] LABS: ALBUMIN 3.7 g/dl (3.4-5.0); ALK PHOS 49 U/L (45-117); ANION GAP 7 (8-16); BILIRUBIN,DIRECT < 0.2 mg/dL (0.0-0.2); BILIRUBIN,TOTAL 0.5 mg/dL (0.2-1.0); BLOOD UREA NITROGEN 27 mg/dL (7-18); CALCIUM 9.8 mg/dL (8.5-10.1); CHLORIDE 110 mmol/L (98-107); CO2 26 mmol/L (21-32); CREATININE 2.1 mg/dL (0.55-1.02); GLUCOSE,RANDOM 141 mg/dL (74-106); MAGNESIUM 2.2 mg/dL (1.8-2.4); SGOT/AST 20 U/L (15-37); SGPT/ALT 18 U/L (12-78); SODIUM 143 mmol/L (136-145); TOT PROT 6.6 g/dl (6.4-8.2)
[2018-04-11] MEDS ORDERED: FULVESTRANT 250 MG/5 ML SYRINGE IM ONE (10:00)
[2018-04-11] MEDS ORDERED: TBO-FILGRASTIM 480 MCG/0.8 ML DISP.SYRIN SQ ONE (12:00)
[2018-04-11 15:42] VITALS: TEMP 98
[2018-04-11 15:43] VITALS: BP 146/70; PULSE 98
== END 2018-04-11 11:40 | disposition home or self-care (01) ==
LOC: JONCCHEMO 07:26 → J7W 09:42 → JONCCHEMO 11:40
PROVIDERS: ATTEND Internal Medicine Hematology & Oncology
PROC: 3E02305 Introduction of Other Antineoplastic into Muscle, Percutaneous Approach (ICD-10-PCS; principal; 2018-04-11)
PROC: 3E013GC Introduction of Other Therapeutic Substance into Subcutaneous Tissue, Percutaneous Approach (ICD-10-PCS; 2018-04-11)
DX: Z51.11 Encounter for antineoplastic chemotherapy (principal); C50.411 Malignant neoplasm of upper-outer quadrant of right female breast; C78.7 Secondary malignant neoplasm of liver and intrahepatic bile duct; D70.1 Agranulocytosis secondary to cancer chemotherapy; Z76.89 Persons encountering health services in other specified circumstances
CPT/HCPCS: 36415; 80048; 80076; 83735; 85025; 96372; 96402; J1447; J9395

== ENCOUNTER 2018-05-16 08:33 | Day surgery (SDC) | payer OTHER, BC ==
[2018-05-16 10:01] LABS: BASO % 2.4 % (0-2.0); HEMATOCRIT 31.2 % (32.4-45.2); HEMOGLOBIN 10.4 GM/dL (10.7-15.3); LYMPH % 22.3 % (8-40); MCH 32.4 pg (25.7-33.7); MCHC 33.3 g/dl (32.0-36.0); MEAN CELL VOLUME 97.5 fl (80-96); MEAN PLT VOLUME 8.1 fl (7.5-11.1); MONO % 8.9 % (3.8-10.2); NEUT % 65.4 % (42.8-82.8); PLATELET COUNT 197 K/MM3 (134-434); RDW 14.8 % (11.6-15.6)
[2018-05-16 10:32] LABS: ALBUMIN 3.7 g/dl (3.4-5.0); ALK PHOS 65 U/L (45-117); ANION GAP 7 (8-16); BILIRUBIN,DIRECT 0.2 mg/dL (0.0-0.2); BILIRUBIN,TOTAL 0.5 mg/dL (0.2-1.0); BLOOD UREA NITROGEN 29 mg/dL (7-18); CALCIUM 9.6 mg/dL (8.5-10.1); CHLORIDE 110 mmol/L (98-107); CO2 25 mmol/L (21-32); GLUCOSE,RANDOM 146 mg/dL (74-106); MAGNESIUM 2.3 mg/dL (1.8-2.4); POTASSIUM 3.8 mmol/L (3.5-5.1); SGOT/AST 40 U/L (15-37); SGPT/ALT 67 U/L (12-78); SODIUM 142 mmol/L (136-145); TOT PROT 6.9 g/dl (6.4-8.2)
--- NOTE | 2018-05-16 13:13 | EKG ---
Test Reason : Blood Pressure : / mmHG Vent. Rate : 095 BPM Atrial Rate : 095 BPM P-R Int : 180 ms QRS Dur : 090 ms QT Int : 368 ms P-R-T Axes : 046 006 042 degrees QTc Int : 462 ms NORMAL SINUS RHYTHM NORMAL ECG WHEN COMPARED WITH ECG OF 15-JAN-2017 13:39, NO SIGNIFICANT CHANGE WAS FOUND Confirmed by MARTINA BEVERLY MD ([id number]) on 05/16/2018 1:12:54 PM Referred By: CECE PEREZ Confirmed By:MARTINA BEVERLY MD
[2018-05-16 16:40] VITALS: TEMP 98.2
[2018-05-16 16:49] VITALS: BP 136/70; PULSE 71
== END 2018-05-16 12:30 | disposition home or self-care (01) ==
LOC: JONCCHEMO 08:33 → J7W 10:49 → JONCCHEMO 12:30
PROVIDERS: ATTEND Internal Medicine Hematology & Oncology
PROC: 3E02305 Introduction of Other Antineoplastic into Muscle, Percutaneous Approach (ICD-10-PCS; principal; 2018-05-16)
PROC: 3E033GC Introduction of Other Therapeutic Substance into Peripheral Vein, Percutaneous Approach (ICD-10-PCS; 2018-05-16)
DX: Z51.11 Encounter for antineoplastic chemotherapy (principal); C50.411 Malignant neoplasm of upper-outer quadrant of right female breast; C78.7 Secondary malignant neoplasm of liver and intrahepatic bile duct; D70.1 Agranulocytosis secondary to cancer chemotherapy
CPT/HCPCS: 36415; 80053; 80076; 82378; 83735; 85025; 86300; 93005; 93010; 96365; 96402; 96417; J3489; J9395

== ENCOUNTER 2018-06-20 07:28 | Day surgery (SDC) | payer OTHER, BC ==
[2018-06-20 09:52] LABS: BASO % 4.1 % (0-2.0); EOS % 5.9 % (0-4.5); HEMOGLOBIN 10.2 GM/dL (10.7-15.3); LYMPH % 42.5 % (8-40); MCH 32.5 pg (25.7-33.7); MCHC 33.8 g/dl (32.0-36.0); MEAN CELL VOLUME 96.1 fl (80-96); MEAN PLT VOLUME 8.1 fl (7.5-11.1); MONO % 6.7 % (3.8-10.2); NEUT % 40.8 % (42.8-82.8); PLATELET COUNT 196 K/MM3 (134-434); RBC 3.12 M/mm3 (3.60-5.2)
[2018-06-20 09:56] LABS: WHITE BLOOD COUNT 1.8 K/mm3 (4.0-10.0)
[2018-06-20] MEDS ORDERED: ZOLEDRONIC ACID 3 MG in SODIUM CHLORIDE 100 ML IVPB ONE (10:00)
[2018-06-20] MEDS ORDERED: FULVESTRANT 250 MG/5 ML SYRINGE IM ONE (10:00)
[2018-06-20 10:18] LABS: ALBUMIN 3.6 g/dl (3.4-5.0); ALK PHOS 54 U/L (45-117); ANION GAP 13 (8-16); BILIRUBIN,DIRECT 0.2 mg/dL (0.0-0.2); BILIRUBIN,TOTAL 0.6 mg/dL (0.2-1.0); BLOOD UREA NITROGEN 34 mg/dL (7-18); CALCIUM 9.5 mg/dL (8.5-10.1); CHLORIDE 109 mmol/L (98-107); CO2 21 mmol/L (21-32); CREATININE 2.4 mg/dL (0.55-1.02); GLUCOSE,RANDOM 147 mg/dL (74-106); MAGNESIUM 2.1 mg/dL (1.8-2.4); POTASSIUM 4.1 mmol/L (3.5-5.1); SGOT/AST 19 U/L (15-37); SGPT/ALT 17 U/L (12-78); SODIUM 143 mmol/L (136-145); TOT PROT 6.9 g/dl (6.4-8.2)
[2018-06-20] MEDS ORDERED: SODIUM CHLORIDE 500 ML IV SCH (11:30)
[2018-06-20 12:55] LABS: ANISOCYTOSIS 2+; MACROCYTOSIS 0; PLATELET ESTIMATE NORMAL
[2018-06-20 16:20] VITALS: TEMP 97.9
[2018-06-20 16:21] VITALS: BP 113/68; PULSE 112
[2018-06-21 06:06] LABS: CARCINOEMBRYONIC ANTIGEN 4.7 ng/mL (0.0-4.7)
== END 2018-06-20 13:45 | disposition home or self-care (01) ==
LOC: JONCCHEMO 07:28 → J7W 10:51 → JONCCHEMO 13:45
PROVIDERS: ATTEND Internal Medicine Hematology & Oncology
PROC: 3E02305 Introduction of Other Antineoplastic into Muscle, Percutaneous Approach (ICD-10-PCS; principal; 2018-06-20)
PROC: 3E0337Z Introduction of Electrolytic and Water Balance Substance into Peripheral Vein, Percutaneous Approach (ICD-10-PCS; 2018-06-20)
DX: Z51.11 Encounter for antineoplastic chemotherapy (principal); C50.411 Malignant neoplasm of upper-outer quadrant of right female breast; C78.7 Secondary malignant neoplasm of liver and intrahepatic bile duct; D70.1 Agranulocytosis secondary to cancer chemotherapy
CPT/HCPCS: 36415; 80048; 80076; 82378; 83735; 85025; 86300; 96360; 96361; 96402; J9395

== ENCOUNTER 2018-07-18 07:35 | Day surgery (SDC) | payer OTHER, BC ==
[2018-07-18] MEDS ORDERED: FULVESTRANT 250 MG/5 ML SYRINGE IM ONE (09:00)
[2018-07-18 10:40] LABS: HEMATOCRIT 30.1 % (32.4-45.2); HEMOGLOBIN 9.8 GM/dL (10.7-15.3); MCH 32.1 pg (25.7-33.7); MCHC 32.7 g/dl (32.0-36.0); MEAN CELL VOLUME 98.2 fl (80-96); MEAN PLT VOLUME 8.9 fl (7.5-11.1); PLATELET COUNT 124 K/MM3 (134-434); RBC 3.07 M/mm3 (3.60-5.2); RDW 15.2 % (11.6-15.6)
[2018-07-18 10:47] LABS: WHITE BLOOD COUNT 1.5 K/mm3 (4.0-10.0)
[2018-07-18 11:14] LABS: PLATELET ESTIMATE DECREASED
[2018-07-18 11:18] LABS: CHLORIDE 112 mmol/L (98-107); POTASSIUM 4.4 mmol/L (3.5-5.1); SODIUM 145 mmol/L (136-145)
[2018-07-18 11:25] LABS: ALBUMIN 3.7 g/dl (3.4-5.0); ALK PHOS 47 U/L (45-117); ANION GAP 12 MMOL/L (8-16); BILIRUBIN,TOTAL 0.7 mg/dL (0.2-1.0); BLOOD UREA NITROGEN 30 mg/dL (7-18); CO2 21 mmol/L (21-32); CREATININE 2.4 mg/dL (0.55-1.3); GLUCOSE,RANDOM 122 mg/dL (74-106); SGOT/AST 14 U/L (15-37); SGPT/ALT 16 U/L (13-61); TOT PROT 6.9 g/dl (6.4-8.2)
[2018-07-18 11:27] LABS: ALBUMIN 3.7 g/dl (3.4-5.0); ALK PHOS 48 U/L (45-117); BILIRUBIN,DIRECT < 0.2 mg/dL (0.0-0.2); BILIRUBIN,TOTAL 0.7 mg/dL (0.2-1.0); MAGNESIUM 2.2 mg/dL (1.8-2.4); SGOT/AST 14 U/L (15-37); SGPT/ALT 16 U/L (13-61); TOT PROT 6.9 g/dl (6.4-8.2)
[2018-07-18 16:24] VITALS: BP 113/67; PULSE 79; TEMP 98.5
== END 2018-07-18 12:10 | disposition home or self-care (01) ==
LOC: JONCCHEMO 07:35 → J7W 11:41 → JONCCHEMO 12:10
PROVIDERS: ATTEND Internal Medicine Hematology & Oncology
DX: Z51.11 Encounter for antineoplastic chemotherapy (principal); C50.411 Malignant neoplasm of upper-outer quadrant of right female breast; C78.7 Secondary malignant neoplasm of liver and intrahepatic bile duct
CPT/HCPCS: 36415; 80053; 80076; 83735; 85025; 96402; J9395

== ENCOUNTER 2018-07-26 10:44 | Day surgery (SDC) | payer OTHER, BC ==
[2018-07-26 11:14] LABS: BASO % 2.9 % (0-2.0); HEMATOCRIT 29.7 % (32.4-45.2); HEMOGLOBIN 9.7 GM/dL (10.7-15.3); LYMPH % 33.7 % (8-40); MCH 31.9 pg (25.7-33.7); MCHC 32.6 g/dl (32.0-36.0); MEAN CELL VOLUME 97.7 fl (80-96); MEAN PLT VOLUME 8.5 fl (7.5-11.1); MONO % 14.6 % (3.8-10.2); NEUT % 47.8 % (42.8-82.8); PLATELET COUNT 96 K/MM3 (134-434); RBC 3.04 M/mm3 (3.60-5.2); RDW 15.4 % (11.6-15.6)
[2018-07-26 11:34] LABS: WHITE BLOOD COUNT 1.8 K/mm3 (4.0-10.0)
[2018-07-26 12:17] LABS: ALBUMIN 3.6 g/dl (3.4-5.0); ALK PHOS 50 U/L (45-117); ANION GAP 7 MMOL/L (8-16); BILIRUBIN,TOTAL 0.4 mg/dL (0.2-1); BLOOD UREA NITROGEN 28 mg/dL (7-18); CHLORIDE 110 mmol/L (98-107); CO2 23 mmol/L (21-32); CREATININE 2.2 mg/dL (0.55-1.3); GLUCOSE,RANDOM 155 mg/dL (74-106); MAGNESIUM 2.1 mg/dL (1.8-2.4); POTASSIUM 3.9 mmol/L (3.5-5.1); SGOT/AST 18 U/L (15-37); SGPT/ALT 16 U/L (13-61); SODIUM 140 mmol/L (136-145); TOT PROT 6.8 g/dl (6.4-8.2)
[2018-07-26] MEDS ORDERED: TBO-FILGRASTIM 480 MCG/0.8 ML DISP.SYRIN SQ ONE (13:15)
[2018-07-26 14:35] LABS: ANISOCYTOSIS 1+; MACROCYTOSIS 1+; PLATELET ESTIMATE DECREASED
[2018-07-26 17:14] VITALS: BP 122/70; PULSE 100
[2018-07-26 17:20] VITALS: TEMP 97.6
== END 2018-07-26 14:20 | disposition home or self-care (01) ==
LOC: JONCCHEMO 10:44 → JLAB 10:44 → J7W 13:14 → JONCCHEMO 14:20
PROVIDERS: ATTEND Internal Medicine Hematology & Oncology
PROC: 3E013GC Introduction of Other Therapeutic Substance into Subcutaneous Tissue, Percutaneous Approach (ICD-10-PCS; principal; 2018-07-26)
DX: Z51.11 Encounter for antineoplastic chemotherapy (principal); C50.411 Malignant neoplasm of upper-outer quadrant of right female breast; C78.7 Secondary malignant neoplasm of liver and intrahepatic bile duct; Z76.89 Persons encountering health services in other specified circumstances
CPT/HCPCS: 36415; 80053; 83735; 85025; 96372; J1447

== ENCOUNTER 2018-08-15 07:31 | Day surgery (SDC) | payer OTHER, BC ==
[2018-08-15] MEDS ORDERED: FULVESTRANT 250 MG/5 ML SYRINGE IM ONE (09:00)
[2018-08-15] MEDS ORDERED: ZOLEDRONIC ACID 3 MG in SODIUM CHLORIDE 100 ML IVPB ONE (09:00)
[2018-08-15 10:08] LABS: BASO % 2.5 % (0-2.0); EOS % 3.2 % (0-4.5); HEMATOCRIT 31.7 % (32.4-45.2); HEMOGLOBIN 10.5 GM/dL (10.7-15.3); MCHC 32.9 g/dl (32.0-36.0); MEAN PLT VOLUME 8.8 fl (7.5-11.1); MONO % 5.2 % (3.8-10.2); NEUT % 71.1 % (42.8-82.8); PLATELET COUNT 228 K/MM3 (134-434); RBC 3.27 M/mm3 (3.60-5.2); RDW 15.3 % (11.6-15.6); WHITE BLOOD COUNT 4.2 K/mm3 (4.0-10.0)
[2018-08-15 10:32] LABS: ALBUMIN 3.7 g/dl (3.4-5.0); ALK PHOS 52 U/L (45-117); ANION GAP 10 MMOL/L (8-16); BILIRUBIN,TOTAL 0.7 mg/dL (0.2-1); BLOOD UREA NITROGEN 26 mg/dL (7-18); CALCIUM 9.8 mg/dL (8.5-10.1); CHLORIDE 111 mmol/L (98-107); CO2 24 mmol/L (21-32); GLUCOSE,RANDOM 107 mg/dL (74-106); POTASSIUM 3.9 mmol/L (3.5-5.1); SGOT/AST 16 U/L (15-37); SGPT/ALT 18 U/L (13-61); SODIUM 145 mmol/L (136-145); TOT PROT 6.9 g/dl (6.4-8.2)
[2018-08-15 10:43] LABS: BILIRUBIN,DIRECT 0.2 mg/dL (0.0-0.2); MAGNESIUM 2.2 mg/dL (1.8-2.4)
[2018-08-15 12:20] VITALS: BP 138/64; PULSE 90
[2018-08-15 12:31] VITALS: TEMP 97.8
== END 2018-08-15 12:10 | disposition home or self-care (01) ==
LOC: JONCCHEMO 07:31 → J7W 10:33 → JONCCHEMO 12:10
PROVIDERS: ATTEND Internal Medicine Hematology & Oncology
PROC: 3E02305 Introduction of Other Antineoplastic into Muscle, Percutaneous Approach (ICD-10-PCS; principal; 2018-08-15)
PROC: 3E033GC Introduction of Other Therapeutic Substance into Peripheral Vein, Percutaneous Approach (ICD-10-PCS; 2018-08-15)
DX: Z51.11 Encounter for antineoplastic chemotherapy (principal); C50.411 Malignant neoplasm of upper-outer quadrant of right female breast; C78.7 Secondary malignant neoplasm of liver and intrahepatic bile duct
CPT/HCPCS: 36415; 80053; 80076; 82378; 83735; 85025; 86300; 96365; 96402; 96417; J3489; J9395

== ENCOUNTER 2018-09-12 07:31 | Day surgery (SDC) | payer OTHER, BC ==
[2018-09-12] MEDS ORDERED: FULVESTRANT 250 MG/5 ML SYRINGE IM ONE (09:00)
[2018-09-12] MEDS ORDERED: ZOLEDRONIC ACID 3 MG in SODIUM CHLORIDE 100 ML IVPB ONE (09:15)
[2018-09-12 10:23] LABS: BASO % 1.9 % (0-2.0); EOS % 1.4 % (0-4.5); HEMATOCRIT 31.9 % (32.4-45.2); HEMOGLOBIN 10.7 GM/dL (10.7-15.3); LYMPH % 43.6 % (8-40); MCH 32.5 pg (25.7-33.7); MCHC 33.7 g/dl (32.0-36.0); MEAN CELL VOLUME 96.7 fl (80-96); MEAN PLT VOLUME 8.4 fl (7.5-11.1); MONO % 6.2 % (3.8-10.2); NEUT % 46.9 % (42.8-82.8); PLATELET COUNT 141 K/MM3 (134-434); RDW 14.8 % (11.6-15.6)
[2018-09-12 10:55] LABS: ALBUMIN 3.7 g/dl (3.4-5.0); ALK PHOS 50 U/L (45-117); ANION GAP 8 MMOL/L (8-16); BILIRUBIN,DIRECT 0.1 mg/dL (0.0-0.2); BILIRUBIN,TOTAL 0.4 mg/dL (0.2-1); BLOOD UREA NITROGEN 36 mg/dL (7-18); CHLORIDE 111 mmol/L (98-107); CO2 24 mmol/L (21-32); CREATININE 2.5 mg/dL (0.55-1.3); GLUCOSE,RANDOM 110 mg/dL (74-106); POTASSIUM 4.5 mmol/L (3.5-5.1); SGOT/AST 16 U/L (15-37); SGPT/ALT 17 U/L (13-61); SODIUM 142 mmol/L (136-145); TOT PROT 6.8 g/dl (6.4-8.2)
[2018-09-12 14:31] VITALS: BP 113/72; PULSE 120; TEMP 97.5
== END 2018-09-12 11:15 | disposition home or self-care (01) ==
LOC: JONCCHEMO 07:31 → J7W 10:48 → JONCCHEMO 11:15
PROVIDERS: ATTEND Internal Medicine Hematology & Oncology
DX: Z51.11 Encounter for antineoplastic chemotherapy (principal); C50.311 Malignant neoplasm of lower-inner quadrant of right female breast; C78.7 Secondary malignant neoplasm of liver and intrahepatic bile duct
CPT/HCPCS: 36415; 80053; 80076; 82378; 85025; 86300; 96402; J9395

== ENCOUNTER 2018-10-10 07:27 | Day surgery (SDC) | payer OTHER, BC ==
[2018-10-10] MEDS ORDERED: FULVESTRANT 250 MG/5 ML SYRINGE IM ONE (10:00)
[2018-10-10] MEDS ORDERED: ZOLEDRONIC ACID 3 MG in SODIUM CHLORIDE 100 ML IVPB ONE (10:00)
[2018-10-10 10:29] LABS: EOS % 1.6 % (0-4.5); HEMATOCRIT 32.7 % (32.4-45.2); HEMOGLOBIN 11.3 GM/dL (10.7-15.3); LYMPH % 38.4 % (8-40); MCH 33.4 pg (25.7-33.7); MCHC 34.6 g/dl (32.0-36.0); MEAN CELL VOLUME 96.3 fl (80-96); MONO % 12.3 % (3.8-10.2); NEUT % 45.7 % (42.8-82.8); PLATELET COUNT 117 K/MM3 (134-434); RBC 3.39 M/mm3 (3.60-5.2); RDW 14.6 % (11.6-15.6)
[2018-10-10 10:56] LABS: ALBUMIN 3.6 g/dl (3.4-5.0); BILIRUBIN,DIRECT 0.2 mg/dL (0.0-0.2); BILIRUBIN,TOTAL 0.6 mg/dL (0.2-1); TOT PROT 6.9 g/dl (6.4-8.2)
[2018-10-10 10:57] LABS: ALBUMIN 3.7 g/dl (3.4-5.0); ALK PHOS 52 U/L (45-117); ANION GAP 6 MMOL/L (8-16); BILIRUBIN,TOTAL 0.6 mg/dL (0.2-1); BLOOD UREA NITROGEN 25 mg/dL (7-18); CALCIUM 9.3 mg/dL (8.5-10.1); CHLORIDE 108 mmol/L (98-107); CO2 27 mmol/L (21-32); GLUCOSE,RANDOM 112 mg/dL (74-106); POTASSIUM 4.1 mmol/L (3.5-5.1); SGOT/AST 21 U/L (15-37); SGPT/ALT 18 U/L (13-61); SODIUM 141 mmol/L (136-145); TOT PROT 7.1 g/dl (6.4-8.2)
[2018-10-10 16:48] VITALS: TEMP 98.3
[2018-10-10 16:49] VITALS: BP 121/62; PULSE 104
== END 2018-10-10 12:15 | disposition home or self-care (01) ==
LOC: JONCCHEMO 07:27 → J7W 10:52 → JONCCHEMO 12:15
PROVIDERS: ATTEND Internal Medicine Hematology & Oncology
PROC: 3E02305 Introduction of Other Antineoplastic into Muscle, Percutaneous Approach (ICD-10-PCS; principal; 2018-10-10)
PROC: 3E033GC Introduction of Other Therapeutic Substance into Peripheral Vein, Percutaneous Approach (ICD-10-PCS; 2018-10-10)
DX: Z51.11 Encounter for antineoplastic chemotherapy (principal); C50.311 Malignant neoplasm of lower-inner quadrant of right female breast; C78.7 Secondary malignant neoplasm of liver and intrahepatic bile duct
CPT/HCPCS: 36415; 80053; 80076; 83735; 85025; 96365; 96402; 96417; J3489; J9395

== ENCOUNTER → 2018-11-07 | Day surgery (SDC) | payer OTHER, BC ==
[2018-11-07 10:57] LABS: BASO % 2.1 % (0-2.0); EOS % 2.2 % (0-4.5); HEMATOCRIT 32.2 % (32.4-45.2); LYMPH % 34.6 % (8-40); MCH 32.2 pg (25.7-33.7); MCHC 34.3 g/dl (32.0-36.0); MEAN CELL VOLUME 94.1 fl (80-96); MEAN PLT VOLUME 8.6 fl (7.5-11.1); MONO % 6.3 % (3.8-10.2); NEUT % 54.8 % (42.8-82.8); PLATELET COUNT 120 K/MM3 (134-434); RBC 3.42 M/mm3 (3.60-5.2); RDW 14.2 % (11.6-15.6)
[2018-11-07 11:29] LABS: ALBUMIN 3.8 g/dl (3.4-5.0); ALK PHOS 53 U/L (45-117); ANION GAP 5 MMOL/L (8-16); BILIRUBIN,DIRECT 0.2 mg/dL (0.0-0.2); BILIRUBIN,TOTAL 0.4 mg/dL (0.2-1); BLOOD UREA NITROGEN 34 mg/dL (7-18); CALCIUM 9.3 mg/dL (8.5-10.1); CHLORIDE 111 mmol/L (98-107); CO2 24 mmol/L (21-32); CREATININE 2.6 mg/dL (0.55-1.3); GLUCOSE,RANDOM 124 mg/dL (74-106); MAGNESIUM 2.2 mg/dL (1.8-2.4); POTASSIUM 4.5 mmol/L (3.5-5.1); SGOT/AST 16 U/L (15-37); SGPT/ALT 17 U/L (13-61); SODIUM 141 mmol/L (136-145); TOT PROT 7.1 g/dl (6.4-8.2)
== END | disposition home or self-care (01) ==
LOC: JONCCHEMO 05:51
PROVIDERS: ATTEND Internal Medicine Hematology & Oncology
PROC: 3E013GC Introduction of Other Therapeutic Substance into Subcutaneous Tissue, Percutaneous Approach (ICD-10-PCS; principal; 2018-11-07)
DX: Z53.8 Procedure and treatment not carried out for other reasons (principal)
CPT/HCPCS: 36415; 80048; 80076; 83735; 85025

== ENCOUNTER 2018-11-20 14:58 | Inpatient (IN) | payer OTHER, BC ==
[2018-11-20 15:14] VITALS: BMI 36.3
--- NOTE | 2018-11-20 16:14 | PDOC ---
History of Present Illness - General Chief Complaint: Syncope/Near Syncope Stated Complaint: SICK Time Seen by Provider: 11/20/18 16:14 - History of Present Illness Initial Comments: 11/20/18 16:15 78 year old woman with history of HTN, HLD, breast CA met to bone who presents with loss of consciousness prior to arrival. The patient reports that she was eating breakfast when she felt dizzy and the next thing she knew she was in the ED. The patient denies chest pain, shortness of breath, nausea, diaphoresis, changes in vision or ringing in the ears prior to LOC. Her son was in the kitchen and saw her on the ground. He is not currently at bedside for collateral history. The patient reports that she stayed up until 0400 this AM and woke up today at 1300. The patient denies any recent illness, fever, dysuria , hematuria, recent cough, recent travel. The patient only complains of some frontal headache, but denies any chest pain, shortness of breath or nausea. Past History - Past Medical History Allergies/Adverse Reactions: Allergies Allergy/AdvReac Type Severity Reaction Status Date / Time penicillin G Allergy Severe Verified 11/20/18 15:12 Home Medications: Ambulatory Orders Calcium (Oyster Shell) [Os-[place] 500MG -] 500 mg PO DAILY 01/14/17 Cholecalciferol (Vitamin D3) [Vitamin D -] 1,000 unit PO DAILY 01/14/17 Multivitamin [Poly-Vitamin] 1 each PO DAILY 01/14/17 Simvastatin [Zocor -] 20 mg PO HS 01/14/17 Verapamil HCl [Calan] 240 mg PO DAILY 01/14/17 Anemia: No Asthma: No Cancer: Yes (breast ca, bone cancer) Cardiac Disorders: No CVA: No COPD: No CHF: No Dementia: No Diabetes: No GI Disorders: No Disorders: No HTN: Yes Hypercholesterolemia: Yes Liver Disease: No Seizures: No Thyroid Disease: No - Surgical History Abdominal Surgery: No Appendectomy: Yes Cardiac Surgery: No Cholecystectomy: No Lung Surgery: No Neurologic Surgery: No Orthopedic Surgery: No - Suicide/Smoking/Psychosocial Hx Smoking History: Never smoked Have you smoked in the past 12 months: No Information on smoking cessation initiated: No Hx Alcohol Use: No Drug/Substance Use Hx: No Substance Use Type: None Hx Substance Use Treatment: No *Physical Exam - Vital Signs Last Vital Signs Temp Pulse Resp BP Pulse Ox 98.3 F 104 H 20 136/64 100 11/20/18 15:12 11/20/18 15:12 11/20/18 15:12 11/20/18 15:12 11/20/18 15:12 Moderate Sedation - Procedure Monitoring Vital Signs: Procedure Monitoring Vital Signs Temperature 98.3 F 11/20/18 15:12 Pulse Rate 104 H 11/20/18 15:12 Respiratory Rate 20 11/20/18 15:12 Blood Pressure 136/64 11/20/18 15:12 O2 Sat by Pulse Oximetry (%) 100 11/20/18 15:12 ED Treatment Course - LABORATORY CBC & Chemistry Diagram: 11/20/18 16:45 11/20/18 16:45 Medical Decision Making - Medical Decision Making 11/20/18 17:49 ED Course: consider arrythmia vs infectious vs electrolyte vs brain mass vs PE r.o intracranial bleed, cspine fx *DC/Admit/Observation/Transfer Diagnosis at time of Disposition: Syncope - Discharge Dispostion Condition at time of disposition: Fair Decision to Admit order: Yes - Referrals - Patient Instructions - Post Discharge Activity
[2018-11-20 16:58] LABS: EOS % 0.3 % (0-4.5); HEMATOCRIT 35.4 % (32.4-45.2); HEMOGLOBIN 11.8 GM/dL (10.7-15.3); MCH 32.1 pg (25.7-33.7); MCHC 33.2 g/dl (32.0-36.0); MEAN CELL VOLUME 96.5 fl (80-96); MEAN PLT VOLUME 7.4 fl (7.5-11.1); MONO % 5.3 % (3.8-10.2); NEUT % 63.4 % (42.8-82.8); PLATELET COUNT 207 K/MM3 (134-434); RBC 3.67 M/mm3 (3.60-5.2); WHITE BLOOD COUNT 3.8 K/mm3 (4.0-10.0)
[2018-11-20 16:59] LABS: URINE APPEARANCE CLEAR; URINE BILIRUBIN NEGATIVE (<2.0 mg/dL); URINE COLOR COLORLESS; URINE GLUCOSE (UA) 1+ (NEGATIVE); URINE KETONE NEGATIVE (NEGATIVE); URINE LEUK ESTERASE NEGATIVE (NEGATIVE); URINE NITRITE NEGATIVE (NEGATIVE); URINE PROTEIN NEGATIVE (NEGATIVE); URINE UROBILINOGEN NEGATIVE mg/dL (0.2-1.0)
[2018-11-20 17:24] LABS: ALBUMIN 4.2 g/dl (3.4-5.0); ALK PHOS 54 U/L (45-117); ANION GAP 11 MMOL/L (8-16); BILIRUBIN,TOTAL 0.9 mg/dL (0.2-1); BLOOD UREA NITROGEN 34 mg/dL (7-18); CALCIUM 9.5 mg/dL (8.5-10.1); CHLORIDE 112 mmol/L (98-107); CO2 22 mmol/L (21-32); CREATININE 2.8 mg/dL (0.55-1.3); GLUCOSE,RANDOM 120 mg/dL (74-106); SGOT/AST 18 U/L (15-37); SGPT/ALT 19 U/L (13-61); SODIUM 146 mmol/L (136-145); TOT PROT 7.6 g/dl (6.4-8.2)
--- NOTE | 2018-11-20 17:55 | PDOC ---
Attending Attestation - Resident Resident Name: Naomy Brown - ED Attending Attestation I have performed the following: I have examined & evaluated the patient, The case was reviewed & discussed with the resident, I agree w/resident's findings & plan, Exceptions are as noted - HPI HPI: 11/20/18 18:44 The patient is an 78 year old female with a significant past medical history of breast cancer with metastasis to the bones currently on daily oral chemo ( followed by Dr. Tolliver), HTN, and HLD who presents to the ED after syncopal episode earlier today. As per son, he heard a thud and found the pt on the floor at which point he called for EMS. Pt states she was feeling lightheaded all morning. States she has no recollection of the syncopal episode, states she felt lightheaded, sat down on the ground, then woke up here in the ED. Per her son, she was out for 3-5 mins. Unknown head strike. Denies current pain. Pt denies any chest pain, sob, palpitations at any point. Denies pain anywhere other then a frontal headache she has had on and off for months. The patient denies recent illness, nausea. Denies any diaphoresis, palpitations, numbness or tingling, visual changes, or any other focal neurological deficits. - Physicial Exam PE: 11/20/18 18:53 GENERAL: Awake, alert, and fully oriented, in no acute distress. Very pleasant HEAD: No signs of trauma EYES: PERRLA, EOMI, sclera anicteric, conjunctiva clear ENT: Nares patent, oropharynx clear without exudates. Moist mucosa NECK: Normal ROM, supple LUNGS: Breath sounds equal, clear to auscultation bilaterally. No wheezes, and no crackles HEART: Regular rate and rhythm, normal S1 and S2, no murmurs, rubs or gallops ABDOMEN: Soft, nontender, normoactive bowel sounds. No guarding, no rebound. No masses EXTREMITIES: Normal range of motion, no edema. No clubbing or cyanosis. No cords, erythema, or tenderness NEUROLOGICAL: Normal speech, cranial nerves intact, equal strength and sensation b/l BACK: no midline cervical, thoracic, lumbar ttp. No step offs or deformities SKIN: Warm, Dry, normal turgor, no rashes or lesions noted. - Medical Decision Making 11/20/18 18:53 78yo F with MMP including breast ca with known bone mets presents to the ED after syncopal episode at home. Vitals initially unremarkable as is exam. W/u with SERGIO, otherwise unremarkable. Trauma w/u negative. Plan for admission for tele monitoring. Heart Score/ECG Review #1 11/20/18 19:26 Twelve-lead EKG was performed and reviewed by me. Sinus tachycardia, rate 101. Normal axis. No ST elevations.
--- NOTE | 2018-11-20 20:44 | HP ---
CHIEF COMPLAINT:syncopal episode PCP:Dr Barker HISTORY OF PRESENT ILLNESS: 78 y/o female with PMH of breast ca with mets to the bone, HLD, HTN who presents to the ED after having a syncopal episode at home. Patient states that she was eating breakfast, and then next thing she knew the EMT were there, she did not remember anything about the actual syncopal episode. Her son was there who stated that she was eating breakfast then he heard a thump and looked over saw is mom was facedown on kitchen table and she was out for aboiut 3-5 minutes. This is the first time she has ever had a syncopal episode. Of ntoe, she does have occasional dizziness but has never passed out before. Until this episode, she was in her usual state of health. there is no sick contacts at home and she denies any recent travel. ER course was notable for: (1)head CT negative for ICH/masses (2)BUN/Cr elevated at 34/2.8- baseline is around 2 (3) Recent Travel: none PAST MEDICAL HISTORY: see above PAST SURGICAL HISTORY: appendectomy and c section Social History: Smoking:denies Alcohol:denies Drugs: denies Family History: father had DM, sister uterine ca, brother colon ca Allergies penicillin G Allergy (Severe, Verified 11/20/18 15:12) HOME MEDICATIONS: Home Medications Medication Instructions Recorded Calcium (Oyster Shell) [Os-[place] 500 mg PO DAILY 01/14/17 500MG -] Cholecalciferol (Vitamin D3) 1,000 unit PO DAILY 01/14/17 [Vitamin D -] Multivitamin [Poly-Vitamin] 1 each PO DAILY 01/14/17 Simvastatin [Zocor -] 20 mg PO HS 01/14/17 Verapamil HCl [Calan] 240 mg PO DAILY 01/14/17 REVIEW OF SYSTEMS CONSTITUTIONAL: Absent: fever, chills, diaphoresis, generalized weakness, malaise, loss of appetite, weight change HEENT: Absent: rhinorrhea, nasal congestion, throat pain, throat swelling, difficulty swallowing, mouth swelling, ear pain, eye pain, visual changes CARDIOVASCULAR: Present: syncope, palpitations, Absent: chest pain, irregular heart rate, lightheadedness, peripheral edema RESPIRATORY: Absent: cough, shortness of breath, dyspnea with exertion, orthopnea, wheezing, stridor, hemoptysis GASTROINTESTINAL: Absent: abdominal pain, abdominal distension, nausea, vomiting, diarrhea, constipation, melena, hematochezia GENITOURINARY: Absent: dysuria, frequency, urgency, hesitancy, hematuria, flank pain, genital pain MUSCULOSKELETAL: Absent: myalgia, arthralgia, joint swelling, back pain, neck pain SKIN: Absent: rash, itching, pallor HEMATOLOGIC/IMMUNOLOGIC: Absent: easy bleeding, easy bruising, lymphadenopathy, frequent infections ENDOCRINE: Absent: unexplained weight gain, unexplained weight loss, heat intolerance, cold intolerance NEUROLOGIC: Present:dizziness, Absent: headache, focal weakness or paresthesias, unsteady gait, seizure, mental status changes, bladder or bowel incontinence PSYCHIATRIC: Absent: anxiety, depression, suicidal or homicidal ideation, hallucinations. PHYSICAL EXAMINATION Vital Signs - 24 hr 11/20/18 11/20/18 11/20/18 15:12 15:18 17:06 Temperature 98.3 F Pulse Rate 104 H Pulse Rate [ 108 H Left Radial] Respiratory 20 15 Rate Blood Pressure 136/64 Blood Pressure 128/56 L [Right Arm] O2 Sat by Pulse 100 100 100 Oximetry (%) GENERAL: Awake, alert, and fully oriented, in no acute distress. EYES: EOMI; PEERLA, no scleral icterus NECK: no JVD, no lymphadenopathy. LUNGS: CTA B/L; no rales, rhonchi or wheezing. HEART: tachycardic, normal S1 and S2 without murmur, rub or gallop. ABDOMEN: Soft, nontender, not distended, normoactive bowel sounds, no guarding, no rebound, no masses. No hepatomegaly or splenomegaly. MUSCULOSKELETAL: Normal range of motion at all joints. No bony deformities or tenderness. No CVA tenderness. EXTREMITIES: warm; well-perfused; trace lower extremity edema NEUROLOGICAL: Cranial nerves II-XII intact. Normal speech. Normal gait. sensation intact B/L; 5/5 strength B/L PSYCHIATRIC: Cooperative. Good eye contact. Appropriate mood and affect. SKIN: Warm, dry, normal turgor, no rashes or lesions noted, normal capillary refill. Laboratory Results - last 24 hr 11/20/18 11/20/18 11/20/18 16:45 16:45 16:45 WBC 3.8 L RBC 3.67 Hgb 11.8 Hct 35.4 MCV 96.5 H MCH 32.1 MCHC 33.2 RDW 15.0 Plt Count 207 D MPV 7.4 L D Absolute Neuts (auto) 2.4 Neutrophils % 63.4 Lymphocytes % 30.0 Monocytes % 5.3 Eosinophils % 0.3 D Basophils % 1.0 Nucleated RBC % 0 Sodium 146 H Potassium 4.0 Chloride 112 H Carbon Dioxide 22 Anion Gap 11 BUN 34 H Creatinine 2.8 H Creat Clearance w eGFR 16.26 Random Glucose 120 H Calcium 9.5 Total Bilirubin 0.9 AST 18 ALT 19 Alkaline Phosphatase 54 Troponin I < 0.02 Total Protein 7.6 Albumin 4.2 Urine Color Colorless Urine Appearance Clear Urine pH 5.0 Ur Specific [place] 1.005 L Urine Protein Negative Urine Glucose (UA) 1+ H Urine Ketones Negative Urine Blood 1+ H Urine Nitrite Negative Urine Bilirubin Negative Urine Urobilinogen Negative Ur Leukocyte Esterase Negative Urine WBC (Auto) 1 Urine RBC (Auto) <1 ASSESSMENT/PLAN: 78 y/o with PMH of breast ca with mets to the bone, HTN, HLD, who presents to the ED after having a syncopal episode at home #Syncope likely cardiac related v. dehydration -carotid dopplers ordered -echo pending -cardiology consult -telemetry monitoring -NS@83mls/hr #SERGIO on CKD? baseline Cr around 2; patient said Ibrance (immunosuppression med) elevates her Cr -renal ultrasound -repeat CMP in AM -NS @83mls/hr #HTN -c/w ramipril 10 daily #HLD -c/w simvastatin F/E/N NS @83mls/hr monitor electrolytes sodium controlled Problem List - Problem (1) Syncope Code(s): R55 - SYNCOPE AND COLLAPSE Visit type - Emergency Visit Emergency Visit: Yes ED Registration Date: 11/20/18 Care time: The patient presented to the Emergency Department on the above date and was hospitalized for further evaluation of their emergent condition. - New Patient This patient is new to me today: Yes Date on this admission: 11/20/18 - Critical Care Critical Care patient: No
--- NOTE | 2018-11-20 20:49 | PN ---
Teaching Attending Note Name of Resident: María Martinez ATTENDING PHYSICIAN STATEMENT I saw and evaluated the patient. I reviewed the resident's note and discussed the case with the resident. I agree with the resident's findings and plan as documented. SUBJECTIVE: This is an 78 year old woman with a history of breast cancer with bone mets, HTN, hyperlipidemia who comes to the ED after passing out. She says that she felt well this morning. She remembers sitting at the kitchen table preparing to eat breakfast. The next thing she remembers is EMS being there. Her son heard a thump and found her with her head face down on the kitchen table. He thinks she lost consciousness for about 3-5 minutes. The patient reports always feeling dizzy. This was unchanged today. She denies headache, fever, chills, chest pain, palpitations, SOB. OBJECTIVE: Vital Signs Period Temp Pulse Resp BP Sys/Velásquez Pulse Ox Last 24 Hr 98.3 F 104-108 15-20 128-136/56-64 100-100 HEART: S1S2, tachycardic LUNGS: Clear ABDOMEN: Obese, soft, non-tender, non-distended, normal BS EXTREMITIES: Trace edema Laboratory Tests 11/20/18 11/20/18 11/20/18 16:45 16:45 16:45 WBC 3.8 L RBC 3.67 Hgb 11.8 Hct 35.4 MCV 96.5 H MCH 32.1 MCHC 33.2 RDW 15.0 Plt Count 207 D MPV 7.4 L D Absolute Neuts (auto) 2.4 Neutrophils % 63.4 Lymphocytes % 30.0 Monocytes % 5.3 Eosinophils % 0.3 D Basophils % 1.0 Nucleated RBC % 0 Sodium 146 H Potassium 4.0 Chloride 112 H Carbon Dioxide 22 Anion Gap 11 BUN 34 H Creatinine 2.8 H Creat Clearance w eGFR 16.26 Random Glucose 120 H Calcium 9.5 Total Bilirubin 0.9 AST 18 ALT 19 Alkaline Phosphatase 54 Troponin I < 0.02 Total Protein 7.6 Albumin 4.2 Urine Color Colorless Urine Appearance Clear Urine pH 5.0 Ur Specific [place] 1.005 L Urine Protein Negative Urine Glucose (UA) 1+ H Urine Ketones Negative Urine Blood 1+ H Urine Nitrite Negative Urine Bilirubin Negative Urine Urobilinogen Negative Ur Leukocyte Esterase Negative Urine WBC (Auto) 1 Urine RBC (Auto) <1 Home Medications Medication Instructions Recorded Calcium (Oyster Shell) [Os-[place] 500 mg PO DAILY 01/14/17 500MG -] Cholecalciferol (Vitamin D3) 1,000 unit PO DAILY 01/14/17 [Vitamin D -] Multivitamin [Poly-Vitamin] 1 each PO DAILY 01/14/17 Simvastatin [Zocor -] 20 mg PO HS 01/14/17 Verapamil HCl [Calan] 240 mg PO DAILY 01/14/17 ASSESSMENT AND PLAN: This is an 78 year old woman with a history of breast cancer with bone mets, HTN , hyperlipidemia who presented to the ED after passing out at home. 1. Syncope - Possibly secondary to dehydration, arrhythmia - Monitor on telemetry - Serial troponins - Echocardiogram - Carotid dopplers - IV fluid 2. Hypernatremia - Secondary to dehydration - IV fluid - Monitor electrolytes 3. Acute kidney injury on stage 4 CKD - Patient denies knowing of a history of kidney disease - IV fluid - Monitor BUN, creatinine - Renal US 4. HTN - Continue Verapamil 5. Hyperlipidemia - Continue Zocor 6. Breast cancer with bone mets - On Ibrance at home
[2018-11-20] MEDS ORDERED: HEPARIN NA (PORCINE) 5,000 UNITS/ML 1ML VIAL ONE (21:25)
[2018-11-20] MEDS ORDERED: ATORVASTATIN CA 10 MG TABLET (FP) ONE (21:25)
[2018-11-20] MEDS ORDERED: PATIENT'S OWN MEDICATION (NON-FORMULARY) (Simvastatin 20 MG) PO SCH (22:00)
[2018-11-20] MEDS: HEPARIN NA (PORCINE) 5,000 UNITS/ML 1ML VIAL SQ SCH (22:57)
[2018-11-20] MEDS: ATORVASTATIN CA 10 MG TABLET (FP) PO SCH (22:57)
[2018-11-21] MEDS: SODIUM CHLORIDE 1,000 ML IV SCH ×3 (00:41→21:17)
[2018-11-21] MEDS ORDERED: HEPARIN NA (PORCINE) 5,000 UNITS/ML 1ML VIAL ONE ×2 (06:01→14:13)
[2018-11-21 06:04] LABS: HEMATOCRIT 31.7 % (32.4-45.2); HEMOGLOBIN 10.7 GM/dL (10.7-15.3); MCH 32.1 pg (25.7-33.7); MCHC 33.8 g/dl (32.0-36.0); MEAN CELL VOLUME 95.1 fl (80-96); MEAN PLT VOLUME 7.8 fl (7.5-11.1); PLATELET COUNT 181 K/MM3 (134-434); RBC 3.34 M/mm3 (3.60-5.2); RDW 15.1 % (11.6-15.6); WHITE BLOOD COUNT 2.4 K/mm3 (4.0-10.0)
[2018-11-21 06:40] LABS: ALBUMIN 3.8 g/dl (3.4-5.0); ALK PHOS 54 U/L (45-117); ANION GAP 8 MMOL/L (8-16); BILIRUBIN,TOTAL 1.2 mg/dL (0.2-1); BLOOD UREA NITROGEN 30 mg/dL (7-18); CALCIUM 9.5 mg/dL (8.5-10.1); CHLORIDE 109 mmol/L (98-107); CO2 24 mmol/L (21-32); CREATININE 2.5 mg/dL (0.55-1.3); GLUCOSE,RANDOM 102 mg/dL (74-106); MAGNESIUM 2.4 mg/dL (1.8-2.4); PHOSPHOROUS 3.6 mg/dL (2.5-4.9); POTASSIUM 4.4 mmol/L (3.5-5.1); SGOT/AST 22 U/L (15-37); SGPT/ALT 18 U/L (13-61); SODIUM 141 mmol/L (136-145)
[2018-11-21] MEDS: HEPARIN NA (PORCINE) 5,000 UNITS/ML 1ML VIAL SQ SCH ×3 (07:18→21:17)
--- NOTE | 2018-11-21 07:55 | PN ---
Progress Note, Physician History of Present Illness: 78 year old woman with a history of breast cancer with bone mets, HTN, hyperlipidemia, CKD stage 4 who comes to the ED after passing out. clinically dehydrated - Current Medication List Current Medications: Active Medications Atorvastatin Calcium (Lipitor -) 10 mg PO HS [facility] Last Admin: 11/20/18 22:57 Dose: 10 mg Cholecalciferol (Vitamin D3 -) 1,000 unit PO DAILY [facility] Heparin Sodium (Porcine) (Heparin -) 5,000 unit SQ TID [facility] Last Admin: 11/21/18 07:18 Dose: 5,000 unit Sodium Chloride (Normal Saline -) 1,000 mls @ 83 mls/hr IV ASDIR [facility] Last Admin: 11/21/18 00:41 Dose: 83 mls/hr Multivitamins/Minerals/Vitamin C (Tab-A-Vit -) 1 tab PO DAILY [facility] Ramipril (Altace -) 10 mg PO DAILY [facility] - Objective Vital Signs: Vital Signs Temperature 98.1 F 11/21/18 07:39 Pulse Rate 88 11/21/18 07:39 Respiratory Rate 18 11/21/18 07:39 Blood Pressure 133/66 11/21/18 07:39 O2 Sat by Pulse Oximetry (%) 100 11/21/18 07:39 Elderly f not in distress HEENT: Mm moist, no anemia, PERRLA, EOMI NECK; No JVd no bruit CHEST: CTA b/L CVS: s1S2r no m/g/r ABD: no distention, non tender Bs + EXT: No akanksha afeet, no calf tenderness, Pulses + [employer]ST [employer]ER: aOX3 non focal Labs: CBC, BMP 11/21/18 05:50 11/21/18 05:50 Problem List - Problems (1) Syncope Assessment/Plan: most likely orthostatic multifactorial, old age, dehydration , cont IV Hydration F/U Orthostatic cardiology input appreciated F/U ECHo cardio gram Code(s): R55 - SYNCOPE AND COLLAPSE (2) Dehydration Assessment/Plan: IV Hydration cont IV Hydration f/u BMP Code(s): E86.0 - DEHYDRATION (3) Hypertension Assessment/Plan: Well controlled resume verapamil Code(s): I10 - ESSENTIAL (PRIMARY) HYPERTENSION (4) metastatic breast cancer Assessment/Plan: F/U Oncology management (5) Hyperlipidemia Assessment/Plan: cont Statin Code(s): E78.5 - HYPERLIPIDEMIA, UNSPECIFIED
--- NOTE | 2018-11-21 08:22 | CON.CARD ---
Consult Consult Specialty:: Cardiology Reason for Consultation:: syncope - History of Present Illness History of Present Illness: 78 year old woman with history of HTN, HLD, breast CA met to bone who presents with loss of consciousness prior to arrival. The patient reports that she was eating breakfast when she felt dizzy and the next thing she knew she was in the ED. The patient denies chest pain, shortness of breath, nausea, diaphoresis, changes in vision or ringing in the ears prior to LOC. Her son was in the kitchen and saw her on the ground. He is not currently at bedside for collateral history. The patient reports that she stayed up until 0400 this AM and woke up today at 1300. The patient denies any recent illness, fever, dysuria , hematuria, recent cough, recent travel. The patient only complains of some frontal headache, but denies any chest pain, shortness of breath or nausea. - History Source History Provided By: Patient, Medical Record - Past Medical History Cardio/Vascular: Yes: HTN, Hyperlipdemia - Past Surgical History Past Surgical History: Yes: Appendectomy, , Tonsillectomy - Alcohol/Substance Use Hx Alcohol Use: No History of Substance Use: reports: None - Smoking History Smoking history: Never smoked Have you smoked in the past 12 months: No - Social History History of Recent Travel: No Home Medications - Allergies Allergies/Adverse Reactions: Allergies Allergy/AdvReac Type Severity Reaction Status Date / Time penicillin G Allergy Severe Verified 11/20/18 15:12 - Home Medications Home Medications: Ambulatory Orders Calcium (Oyster Shell) [Os-London 500MG -] 500 mg PO DAILY 01/14/17 Cholecalciferol (Vitamin D3) [Vitamin D -] 1,000 unit PO DAILY 01/14/17 Multivitamin [Poly-Vitamin] 1 each PO DAILY 01/14/17 Simvastatin [Zocor -] 20 mg PO HS 01/14/17 Verapamil HCl [Calan] 240 mg PO DAILY 01/14/17 Family Disease History - Family Disease History Family Disease History: Diabetes: Father (Prostate Ca ), CA: Father, Brother, Other: Mother (Stroke ) Review of Systems - Review of Systems Constitutional: reports: No Symptoms Eyes: reports: No Symptoms HENT: reports: No Symptoms Neck: reports: No Symptoms Cardiovascular: reports: No Symptoms Gastrointestinal: reports: No Symptoms Genitourinary: reports: No Symptoms Breasts: reports: No Symptoms Reported Musculoskeletal: reports: No Symptoms Integumentary: reports: No Symptoms Neurological: reports: Syncope Endocrine: reports: No Symptoms Hematology/Lymphatic: reports: No Symptoms Psychiatric: reports: No Symptoms Vital Signs: Vital Signs Temperature 98.1 F 11/21/18 07:39 Pulse Rate 88 11/21/18 07:39 Respiratory Rate 18 11/21/18 07:39 Blood Pressure 133/66 11/21/18 07:39 O2 Sat by Pulse Oximetry (%) 100 11/21/18 07:39 Constitutional: Yes: Well Nourished, No Distress, Calm Eyes: Yes: WNL, Conjunctiva Clear, EOM Intact HENT: Yes: WNL, Atraumatic, Normocephalic Neck: Yes: WNL, Supple, Trachea Midline Respiratory: Yes: WNL, Regular, CTA Bilaterally Gastrointestinal: Yes: WNL, Normal Bowel Sounds Renal/: Yes: WNL Cardiovascular: Yes: WNL, Regular Rate and Rhythm Musculoskeletal: Yes: WNL Extremities: Yes: WNL Integumentary: Yes: WNL Neurological: Yes: WNL, Alert, Oriented ...Motor Strength: WNL Psychiatric: Yes: WNL, Alert, Oriented - Other Data Labs, Other Data: CBC, BMP 11/21/18 05:50 11/21/18 05:50 Troponin, BNP 11/20/18 16:45 Troponin I < 0.02 Troponin, BNP 11/20/18 16:45 Troponin I < 0.02 Laboratory Tests 11/20/18 11/20/18 11/20/18 16:45 16:45 16:45 WBC 3.8 L RBC 3.67 Hgb 11.8 Hct 35.4 MCV 96.5 H MCH 32.1 MCHC 33.2 RDW 15.0 Plt Count 207 D MPV 7.4 L D Absolute Neuts (auto) 2.4 Neutrophils % 63.4 Lymphocytes % 30.0 Monocytes % 5.3 Eosinophils % 0.3 D Basophils % 1.0 Nucleated RBC % 0 Sodium 146 H Potassium 4.0 Chloride 112 H Carbon Dioxide 22 Anion Gap 11 BUN 34 H Creatinine 2.8 H Creat Clearance w eGFR 16.26 Random Glucose 120 H Calcium 9.5 Phosphorus Magnesium Total Bilirubin 0.9 AST 18 ALT 19 Alkaline Phosphatase 54 Troponin I < 0.02 Total Protein 7.6 Albumin 4.2 Triglycerides Cholesterol Total LDL Cholesterol HDL Cholesterol TSH Urine Color Colorless Urine Appearance Clear Urine pH 5.0 Ur Specific Hammond 1.005 L Urine Protein Negative Urine Glucose (UA) 1+ H Urine Ketones Negative Urine Blood 1+ H Urine Nitrite Negative Urine Bilirubin Negative Urine Urobilinogen Negative Ur Leukocyte Esterase Negative Urine WBC (Auto) 1 Urine RBC (Auto) <1 11/21/18 11/21/18 11/21/18 05:50 05:50 05:50 WBC 2.4 L RBC 3.34 L Hgb 10.7 Hct 31.7 L MCV 95.1 MCH 32.1 MCHC 33.8 RDW 15.1 Plt Count 181 MPV 7.8 Absolute Neuts (auto) Neutrophils % Lymphocytes % Monocytes % Eosinophils % Basophils % Nucleated RBC % Sodium 141 Potassium 4.4 Chloride 109 H Carbon Dioxide 24 Anion Gap 8 BUN 30 H Creatinine 2.5 H Creat Clearance w eGFR 18.53 Random Glucose 102 Calcium 9.5 Phosphorus 3.6 Magnesium 2.4 Total Bilirubin 1.2 H AST 22 ALT 18 Alkaline Phosphatase 54 Troponin I Total Protein 7.0 Albumin 3.8 Triglycerides 118 Cholesterol 172 Total LDL Cholesterol 83 HDL Cholesterol 66 H TSH 4.47 H Urine Color Urine Appearance Urine pH Ur Specific Hammond Urine Protein Urine Glucose (UA) Urine Ketones Urine Blood Urine Nitrite Urine Bilirubin Urine Urobilinogen Ur Leukocyte Esterase Urine WBC (Auto) Urine RBC (Auto) Imaging - Results Chest X-ray: Image Reviewed (no i/e) EKG: Image Reviewed (s tachy) Problem List - Problems (1) Dehydration Code(s): E86.0 - DEHYDRATION (2) Syncope Code(s): R55 - SYNCOPE AND COLLAPSE (3) Abdominal pain Code(s): R10.9 - UNSPECIFIED ABDOMINAL PAIN (4) Acute ischemic colitis Code(s): K55.039 - ACUTE ISCHEMIA OF LARGE INTESTINE, EXTENT UNSPECIFIED (5) Anemia Code(s): D64.9 - ANEMIA, UNSPECIFIED (6) Back pain Code(s): M54.9 - DORSALGIA, UNSPECIFIED (7) Colitis Code(s): K52.9 - NONINFECTIVE GASTROENTERITIS AND COLITIS, UNSPECIFIED (8) DVT prophylaxis Code(s): FLM1904 - (9) Dehydration Code(s): E86.0 - DEHYDRATION (10) Dizziness Code(s): R42 - DIZZINESS AND GIDDINESS (11) GI bleeding Code(s): K92.2 - GASTROINTESTINAL HEMORRHAGE, UNSPECIFIED Qualifiers: GI bleed type/associated pathology: unspecified gastrointestinal hemorrhage type Qualified Code(s): K92.2 - Gastrointestinal hemorrhage, unspecified (12) Hyperlipidemia Code(s): E78.5 - HYPERLIPIDEMIA, UNSPECIFIED (13) Hypertension Code(s): I10 - ESSENTIAL (PRIMARY) HYPERTENSION (14) Hypokalemia Code(s): E87.6 - HYPOKALEMIA (15) Hypomagnesemia Code(s): E83.42 - HYPOMAGNESEMIA (16) Positive blood culture Code(s): R78.81 - BACTEREMIA (17) Pulmonary embolism Code(s): I26.99 - OTHER PULMONARY EMBOLISM WITHOUT ACUTE COR PULMONALE Assessment/Plan ASSESSMENT/PLAN: 78 y/o with PMH of breast ca with mets to the bone, HTN, HLD, who presents to the ED after having a syncopal episode at home #Syncope likely cardiac related v. dehydration -carotid dopplers no obstructive lesions -echo pending -telemetry monitoring -NS@83mls/hr further cardiac testing depends on above results and prognosis of patient metastatic breast CA #SERGIO on CKD? baseline Cr around 2; patient said Ibrance (immunosuppression med) elevates her Cr -renal ultrasound -repeat CMP in AM -NS @83mls/hr #HTN -c/w ramipril 10 daily #HLD -c/w simvastatin DVT plx
[2018-11-21] MEDS: MULTIVITAMINS (DAILY MVI) TABLET (FP) PO SCH (09:44)
[2018-11-21] MEDS: CHOLECALCIFEROL (VITAMIN D3) 1,000 UNIT TABLET (FP) PO SCH (09:44)
[2018-11-21] MEDS ORDERED: PATIENT'S OWN MEDICATION (NON-FORMULARY) (Multivitamin [Poly-Vitamin] 1 EACH) PO SCH (10:00)
[2018-11-21] MEDS ORDERED: RAMIPRIL 5 MG CAPSULE (FP) PO SCH (10:00)
--- NOTE | 2018-11-21 12:16 | EKG ---
Test Reason : Blood Pressure : / mmHG Vent. Rate : 101 BPM Atrial Rate : 101 BPM P-R Int : 180 ms QRS Dur : 096 ms QT Int : 354 ms P-R-T Axes : 042 004 022 degrees QTc Int : 459 ms SINUS TACHYCARDIA OTHERWISE NORMAL ECG WHEN COMPARED WITH ECG OF 16-MAY-2018 11:24, NO SIGNIFICANT CHANGE WAS FOUND Confirmed by ASHLEY ANGEL MD ([id number]) on 11/21/2018 12:16:09 PM Referred By: Confirmed By:ASHLEY ANGEL MD
[2018-11-21] MEDS: ATORVASTATIN CA 10 MG TABLET (FP) PO SCH (21:17)
[2018-11-22] MEDS: HEPARIN NA (PORCINE) 5,000 UNITS/ML 1ML VIAL SQ SCH ×3 (06:30→21:12)
[2018-11-22 07:07] LABS: BASO % 1.1 % (0-2.0); EOS % 1.3 % (0-4.5); HEMATOCRIT 26.9 % (32.4-45.2); MCH 32.3 pg (25.7-33.7); MCHC 33.5 g/dl (32.0-36.0); MEAN CELL VOLUME 96.2 fl (80-96); MONO % 8.6 % (3.8-10.2); PLATELET COUNT 128 K/MM3 (134-434)
[2018-11-22 07:25] LABS: ANION GAP 7 MMOL/L (8-16); BLOOD UREA NITROGEN 29 mg/dL (7-18); CALCIUM 8.2 mg/dL (8.5-10.1); CHLORIDE 112 mmol/L (98-107); CO2 22 mmol/L (21-32); CREATININE 2.1 mg/dL (0.55-1.3); GLUCOSE,RANDOM 95 mg/dL (74-106); POTASSIUM 4.3 mmol/L (3.5-5.1); SODIUM 141 mmol/L (136-145)
[2018-11-22 07:35] LABS: WHITE BLOOD COUNT 1.8 K/mm3 (4.0-10.0)
[2018-11-22] MEDS: VERAPAMIL HCL 240 MG E.R. TABLET (FP) PO SCH (10:12)
[2018-11-22] MEDS: MULTIVITAMINS (DAILY MVI) TABLET (FP) PO SCH (10:12)
[2018-11-22] MEDS: CHOLECALCIFEROL (VITAMIN D3) 1,000 UNIT TABLET (FP) PO SCH (10:12)
--- NOTE | 2018-11-22 11:19 | PN ---
Progress Note, Physician Chief Complaint: Pt A&Ox3; no chest pain, dizziness, palpitations, or dyspnea. 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 The patient reports that she was eating breakfast when she felt dizzy and the next thing she knew she was in the ED. The patient denies chest pain, shortness of breath, nausea, diaphoresis, changes in vision or ringing in the ears prior to LOC. Her son was in the kitchen and saw her on the ground. He is not currently at bedside for collateral history. The patient reports that she stayed up until 0400 this AM and woke up today at 1300. The patient denies any recent illness, fever, dysuria , hematuria, recent cough, recent travel. The patient only complains of some frontal headache, but denies any chest pain, shortness of breath or nausea. - Current Medication List Current Medications: Active Medications Atorvastatin Calcium (Lipitor -) 10 mg PO HS [facility] Last Admin: 11/21/18 21:17 Dose: 10 mg Cholecalciferol (Vitamin D3 -) 1,000 unit PO DAILY [facility] Last Admin: 11/22/18 10:12 Dose: 1,000 unit Heparin Sodium (Porcine) (Heparin -) 5,000 unit SQ TID [facility] Last Admin: 11/22/18 06:30 Dose: 5,000 unit Sodium Chloride (Normal Saline -) 1,000 mls @ 83 mls/hr IV ASDIR [facility] Last Admin: 11/21/18 21:17 Dose: Not Given Multivitamins/Minerals/Vitamin C (Tab-A-Vit -) 1 tab PO DAILY [facility] Last Admin: 11/22/18 10:12 Dose: 1 tab Verapamil HCl (Calan Sr -) 240 mg PO DAILY [facility] Last Admin: 11/22/18 10:12 Dose: 240 mg - Objective Vital Signs: Vital Signs Temperature 98.3 F 11/22/18 08:50 Pulse Rate 79 11/22/18 08:50 Respiratory Rate 18 11/22/18 08:50 Blood Pressure 128/52 L 11/22/18 08:50 O2 Sat by Pulse Oximetry (%) 100 11/21/18 20:30 Constitutional: Yes: No Distress Eyes: Yes: WNL HENT: Yes: WNL Neck: Yes: WNL Cardiovascular: Yes: Murmur, S1, S2 Respiratory: Yes: Regular Gastrointestinal: Yes: Soft ...Rectal Exam: Yes: Deferred Genitourinary: No: Anuria Breast(s): Yes: WNL Musculoskeletal: Yes: Muscle Weakness Extremities: Yes: Cool Edema: No Peripheral Pulses WNL: Yes Integumentary: Yes: WNL Neurological: Yes: Alert, Oriented, Weakness Psychiatric: Yes: WNL Labs: CBC, BMP 11/22/18 05:30 11/22/18 05:30 Abnormal Lab Results 11/22/18 11/23/18 11/23/18 05:30 05:30 05:30 WBC 1.5 L* RBC 2.81 L Hgb 9.0 L Hct 27.2 L MCV 96.8 H Plt Count 121 L Neutrophils % (Manual) 31.3 L Lymphocytes % (Manual) 63.7 H D Monocytes % (Manual) 2 L D Chloride 114 H Carbon Dioxide 19 L BUN 23 H Creatinine 2.0 H Calcium 8.3 L - ....Imaging Chest X-ray: Image Reviewed EKG: Image Reviewed Problem List - Problems (1) Dehydration Code(s): E86.0 - DEHYDRATION (2) Syncope Assessment/Plan: Dehydration, anemia (pancytopenia), effects of CA with mets are likely principle contributosr to this episode. Pt admits she drinks little water or other fuids, and eats few fruits or vegetables. Orthostatic vital signs. Carotid artery US: minimal atherosclerosis; no stenoses. ECHO: normal LVEF; moderate MR (f/u repeat). Pt denies chest pain, dyspnea; has ocasionall bilateral ankle swelling in the summer. 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 No hx heart disease "except I was told I had a heart murmur when I was 12". No prior hx syncope. She occasionally becomes dizzy on standing. Folow CA/pancytopenia workup. Code(s): R55 - SYNCOPE AND COLLAPSE (3) Renal disorder Assessment/Plan: hydration. F/u BUN/Cr, F/u with beef killer Code(s): N28.9 - DISORDER OF KIDNEY AND URETER, UNSPECIFIED (4) Mitral regurgitation Assessment/Plan: Moderate (06/19), with normal LVEF and LV size; f/u repeat. Code(s): I34.0 - NONRHEUMATIC MITRAL (VALVE) INSUFFICIENCY (5) Anemia Assessment/Plan: With hydration, "normal" Hb is now significantly reduced. Stool quaiac, though likely pancytopenia from CA and/or its treatment. Code(s): D64.9 - ANEMIA, UNSPECIFIED (6) Pancytopenia Code(s): D61.818 - OTHER PANCYTOPENIA
[2018-11-22 11:34] LABS: ANISOCYTOSIS 1+; MACROCYTOSIS 1+; OVALOCYTE 1+; PLATELET ESTIMATE DECREASED
[2018-11-22] MEDS ORDERED: IBUPROFEN 400 MG TABLET (FP) PO PRN (14:04)
--- NOTE | 2018-11-22 14:24 | PN ---
Teaching Attending Note Name of Resident: Ekta Bennett ATTENDING PHYSICIAN STATEMENT I saw and evaluated the patient. I reviewed the resident's note and discussed the case with the resident. I agree with the resident's findings and plan as documented. SUBJECTIVE:Comfortable denies any feveer, nausea, dizziness OBJECTIVE: Vital Signs Period Temp Pulse Resp BP Sys/Velásquez Pulse Ox Last 24 Hr 97.9 F-98.6 F 79-118 18-18 107-135/47-70 100-100 Elderly f not in distress HEENT: Mm moist,+ anemia, PERRLA, EOMI NECK; No JVd no bruit CHEST: CTA b/L CVS: s1S2r no m/g/r ABD: no distention, non tender Bs + EXT: No edema feet, no calf tenderness, Pulses + CAR WHACKER: aOX3 non focal ASSESSMENT AND PLAN:78 year old woman with a history of breast cancer with bone mets, HTN, hyperlipidemia, CKD stage 4 who comes to the ED after passing out. On arrival clinically dehydrated Active Issue; syncope: most likely neurocardiogenic, no arrhythmia on monitor, ECHO result pending no cardiac history, plase check orthostatic vital F/U Cardiology recommendations. Pancytopenia; On chemo ANC 600: Neutropenic precautions, F/U oncology input, F/ U CBC Discussed with the team. Problem List - Problems (1) Syncope Assessment/Plan: most likely orthostatic multifactorial, old age, dehydration , cont IV Hydration F/U Orthostatic cardiology input appreciated F/U ECHo cardio gram Code(s): R55 - SYNCOPE AND COLLAPSE (2) Dehydration Assessment/Plan: IV Hydration cont IV Hydration f/u BMP Code(s): E86.0 - DEHYDRATION (3) Hypertension Assessment/Plan: Well controlled resume verapamil Code(s): I10 - ESSENTIAL (PRIMARY) HYPERTENSION (4) metastatic breast cancer Assessment/Plan: F/U Oncology management (5) Hyperlipidemia Assessment/Plan: cont Statin Code(s): E78.5 - HYPERLIPIDEMIA, UNSPECIFIED (6) Pancytopenia Assessment/Plan: H/O CA Breast last chemo was 1 month ago all cell lines dropped ANC 600 no fever , oncology consult , Neutropenic precautions F/U CBC. Code(s): D61.818 - OTHER PANCYTOPENIA
--- NOTE | 2018-11-22 14:45 | ECHO ---
Name: GRETCHEN VELASQUEZ Exam:Adult Echocardiogram Study Date: 11/22/2018 10:12 AM Age: 78 yrs Reason For Study: SYNCOPAL EPISODE Height: 49 in Weight: 180 lb BSA: 1.5 m2 MMode/2D Measurements & Calculations IVSd: 0.82 cm Ao root diam: 2.1 cm LVIDd: 4.3 cm LA dimension: 3.3 cm LVIDs: 3.2 cm LVPWd: 0.88 cm EDV(Teich): 83.3 ml ESV(Teich): 40.1 ml Doppler Measurements & Calculations MV E max asher: 59.7 cm/sec Med Peak E' Asher: 7.1 cm/sec MV A max asher: 94.3 cm/sec Med E/e': 8.4 MV E/A: 0.63 Lat Peak E' Asher: 10.1 cm/sec MV dec time: 0.15 sec Lat E/e': 5.9 Left Ventricle The left ventricular size, thickness and function are normal. Ejection Fraction = 65. The transmitral spectral Doppler flow pattern is suggestive of impaired LV relaxation. Right Ventricle The right ventricle is normal in size and function. Atria Normal left and right atrial size and function. Mitral Valve The mitral valve is normal. Tricuspid Valve The tricuspid valve is normal. There is mild tricuspid regurgitation. Aortic Valve The aortic valve is normal in structure and function. Pulmonic Valve The pulmonic valve is not well seen, but is grossly normal. Great Vessels The aortic root is normal size. Normal aortic arch, descending and ascending aorta. Pericardium/Pleura There is no pericardial effusion. Interpretation Summary The left ventricular size, thickness and function are normal The transmitral spectral Doppler flow pattern is suggestive of impaired LV relaxation. Ejection Fraction = 65. The right ventricle is normal in size and function. Normal left and right atrial size and function. The mitral valve is normal. The tricuspid valve is normal. There is mild tricuspid regurgitation. The aortic valve is normal in structure and function. The pulmonic valve is not well seen, but is grossly normal. The aortic root is normal size. Normal aortic arch, descending and ascending aorta Rosendo Schmitt 11/22/2018 02:45 PM
--- NOTE | 2018-11-22 17:28 | PN ---
Physical Exam: SUBJECTIVE: Patient seen and examined at bedside. No acute events overnight. OBJECTIVE: Vital Signs Temperature 99.2 F 11/22/18 14:00 Pulse Rate 86 11/22/18 14:00 Respiratory Rate 20 11/22/18 14:00 Blood Pressure 109/49 L 11/22/18 14:00 O2 Sat by Pulse Oximetry (%) 100 11/22/18 12:00 GENERAL: AAOx3. NAD. Comfortable. Pleasant. HEENT: AT/NC. EOMI. LOGAN. Moist mucus membranes. NECK: Trachea midline, full range of motion, supple. LUNGS: CTA B/L. No wheezes noted. HEART: Regular rate and rhythm, S1, S2 without murmur, rub or gallop. ABDOMEN: Soft NT/ND. +BS in all 4Q's. EXTREMITIES: 2+ pulses, warm, well-perfused, no edema. NEUROLOGICAL: Cranial nerves II through XII grossly intact. Normal speech, gait not observed. SKIN: Warm, dry, normal turgor, no rashes or lesions noted CBC, BMP 11/22/18 05:30 11/22/18 05:30 Active Medications Atorvastatin Calcium (Lipitor -) 10 mg PO HS [facility] Last Admin: 11/21/18 21:17 Dose: 10 mg Calcium Carbonate (Os-[place] 500mg -) 500 mg PO DAILY [facility] Cholecalciferol (Vitamin D3 -) 1,000 unit PO DAILY [facility] Last Admin: 11/22/18 10:12 Dose: 1,000 unit Heparin Sodium (Porcine) (Heparin -) 5,000 unit SQ TID [facility] Last Admin: 11/22/18 13:18 Dose: 5,000 unit Sodium Chloride (Normal Saline -) 1,000 mls @ 83 mls/hr IV ASDIR [facility] Last Admin: 11/21/18 21:17 Dose: Not Given Ibuprofen (Motrin -) 400 mg PO Q6H PRN PRN Reason: PAIN LEVEL 6-10 Multivitamins/Minerals/Vitamin C (Tab-A-Vit -) 1 tab PO DAILY [facility] Last Admin: 11/22/18 10:12 Dose: 1 tab Non-Formulary Medication (Palbociclib [Ibrance]) 75 mg PO DAILY [facility] Verapamil HCl (Calan Sr -) 240 mg PO DAILY [facility] Last Admin: 11/22/18 10:12 Dose: 240 mg IMAGING: * Carotid artery US: minimal atherosclerosis; no stenoses. * ECHO: normal LVEF; moderate MR (f/u repeat). * Renal U/S: Mild atrophic kidneys w/o evid of hydronephrosis ASSESSMENT/PLAN: 78Fwith PMH of breast ca with mets to the bone, HTN, HLD, who presents to the ED after having a syncopal episode at home. #Syncope; 2/2 likely dehydration -Carotid doppler and echo noted above. -Per cardio, anemia workup. Syncope likely related to dehydration with anemia a contributing factor. -telemetry monitoring -f/u orthostatics -NS@83mls/hr #SERGIO on CKD?; Cr now 2.1, yesterday 2.5 baseline Cr around 2; patient said Ibrance (immunosuppression med) elevates her Cr -PO hydration; NS -repeat CMP in AM -NS @83mls/hr #Hx of Breast Cx; Cont home med: Ibrance 75 mg PO QD -Onc outpatient follow up #HTN -Verapamil 240 mg PO QD #HLD -c/w simvastatin #Prophylaxis -SQH F/E/N -NS @83mls/hr -monitor electrolytes -sodium controlled dispo -full code -cont to monitor on tele Visit type - Emergency Visit Emergency Visit: Yes ED Registration Date: 11/20/18 Care time: The patient presented to the Emergency Department on the above date and was hospitalized for further evaluation of their emergent condition. - New Patient This patient is new to me today: Yes Date on this admission: 11/22/18 - Critical Care Critical Care patient: No
[2018-11-22] MEDS: SODIUM CHLORIDE 1,000 ML IV SCH (21:00)
[2018-11-22] MEDS: ATORVASTATIN CA 10 MG TABLET (FP) PO SCH (21:12)
[2018-11-23] MEDS: HEPARIN NA (PORCINE) 5,000 UNITS/ML 1ML VIAL SQ SCH ×3 (06:26→21:17)
[2018-11-23 06:46] LABS: HEMATOCRIT 27.2 % (32.4-45.2); MCH 32.1 pg (25.7-33.7); MCHC 33.1 g/dl (32.0-36.0); MEAN CELL VOLUME 96.8 fl (80-96); MEAN PLT VOLUME 7.9 fl (7.5-11.1); PLATELET COUNT 121 K/MM3 (134-434); RBC 2.81 M/mm3 (3.60-5.2); RDW 15.2 % (11.6-15.6)
[2018-11-23 06:53] LABS: WHITE BLOOD COUNT 1.5 K/mm3 (4.0-10.0)
[2018-11-23 08:01] LABS: ANION GAP 9 MMOL/L (8-16); BLOOD UREA NITROGEN 23 mg/dL (7-18); CALCIUM 8.3 mg/dL (8.5-10.1); CHLORIDE 114 mmol/L (98-107); CO2 19 mmol/L (21-32); GLUCOSE,RANDOM 97 mg/dL (74-106); POTASSIUM 4.1 mmol/L (3.5-5.1); SODIUM 142 mmol/L (136-145)
[2018-11-23] MEDS ORDERED: PT OWN MED DRAWER 7, Y5N ONE (09:34)
[2018-11-23] MEDS ORDERED: PALBOCICLIB 75 MG PO SCH (10:00)
[2018-11-23] MEDS: CHOLECALCIFEROL (VITAMIN D3) 1,000 UNIT TABLET (FP) PO SCH (10:27)
[2018-11-23] MEDS: VERAPAMIL HCL 240 MG E.R. TABLET (FP) PO SCH (10:27)
[2018-11-23] MEDS: MULTIVITAMINS (DAILY MVI) TABLET (FP) PO SCH (10:27)
[2018-11-23] MEDS: CALCIUM (OYSTER SHELL) 500 MG TABLET (FP) PO SCH (10:27)
--- NOTE | 2018-11-23 11:25 | PN ---
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 The patient reports that she was eating breakfast when she felt dizzy and the next thing she knew she was in the ED. The patient denies chest pain, shortness of breath, nausea, diaphoresis, changes in vision or ringing in the ears prior to LOC. Her son was in the kitchen and saw her on the ground. He is not currently at bedside for collateral history. The patient reports that she stayed up until 0400 this AM and woke up today at 1300. The patient denies any recent illness, fever, dysuria , hematuria, recent cough, recent travel. The patient only complains of some frontal headache, but denies any chest pain, shortness of breath or nausea. - Current Medication List Current Medications: Active Medications Atorvastatin Calcium (Lipitor -) 10 mg PO HS [facility] Last Admin: 11/22/18 21:12 Dose: 10 mg Calcium Carbonate (Os-London 500mg -) 500 mg PO DAILY [facility] Last Admin: 11/23/18 10:27 Dose: 500 mg Cholecalciferol (Vitamin D3 -) 1,000 unit PO DAILY [facility] Last Admin: 11/23/18 10:27 Dose: 1,000 unit Heparin Sodium (Porcine) (Heparin -) 5,000 unit SQ TID [facility] Last Admin: 11/23/18 06:26 Dose: 5,000 unit Sodium Chloride (Normal Saline -) 1,000 mls @ 83 mls/hr IV ASDIR [facility] Last Admin: 11/22/18 21:00 Dose: 83 mls/hr Ibuprofen (Motrin -) 400 mg PO Q6H PRN PRN Reason: PAIN LEVEL 6-10 Multivitamins/Minerals/Vitamin C (Tab-A-Vit -) 1 tab PO DAILY [facility] Last Admin: 11/23/18 10:27 Dose: 1 tab Non-Formulary Medication (Palbociclib [Ibrance]) 75 mg PO DAILY [facility] Verapamil HCl (Calan Sr -) 240 mg PO DAILY [facility] Last Admin: 11/23/18 10:27 Dose: 240 mg - Objective Vital Signs: Vital Signs Temperature 98.1 F 11/23/18 10:00 Pulse Rate 76 11/23/18 10:00 Respiratory Rate 20 11/23/18 10:00 Blood Pressure 104/48 L 01/23/19 10:00 O2 Sat by Pulse Oximetry (%) 98 11/23/18 09:00 Eyes: Yes: WNL, Conjunctiva Clear, EOM Intact HENT: Yes: WNL, Atraumatic, Normocephalic Neck: Yes: WNL, Supple, Trachea Midline Cardiovascular: Yes: WNL, Regular Rate and Rhythm Respiratory: Yes: WNL, Regular, CTA Bilaterally Gastrointestinal: Yes: WNL, Normal Bowel Sounds Genitourinary: Yes: WNL Musculoskeletal: Yes: WNL Extremities: Yes: WNL Edema: No Integumentary: Yes: WNL Neurological: Yes: WNL, Alert, Oriented ...Motor Strength: WNL Psychiatric: Yes: WNL Labs: CBC, BMP 11/23/18 05:30 11/23/18 05:30 Problem List - Problems (1) Dehydration Code(s): E86.0 - DEHYDRATION (2) Syncope Code(s): R55 - SYNCOPE AND COLLAPSE (3) Abdominal pain Code(s): R10.9 - UNSPECIFIED ABDOMINAL PAIN (4) Acute ischemic colitis Code(s): K55.039 - ACUTE ISCHEMIA OF LARGE INTESTINE, EXTENT UNSPECIFIED (5) Anemia Code(s): D64.9 - ANEMIA, UNSPECIFIED (6) Back pain Code(s): M54.9 - DORSALGIA, UNSPECIFIED (7) Colitis Code(s): K52.9 - NONINFECTIVE GASTROENTERITIS AND COLITIS, UNSPECIFIED (8) DVT prophylaxis Code(s): ALM7403 - (9) Dehydration Code(s): E86.0 - DEHYDRATION (10) Dizziness Code(s): R42 - DIZZINESS AND GIDDINESS (11) GI bleeding Code(s): K92.2 - GASTROINTESTINAL HEMORRHAGE, UNSPECIFIED Qualifiers: GI bleed type/associated pathology: unspecified gastrointestinal hemorrhage type Qualified Code(s): K92.2 - Gastrointestinal hemorrhage, unspecified (12) Hyperlipidemia Code(s): E78.5 - HYPERLIPIDEMIA, UNSPECIFIED (13) Hypertension Code(s): I10 - ESSENTIAL (PRIMARY) HYPERTENSION (14) Hypokalemia Code(s): E87.6 - HYPOKALEMIA (15) Hypomagnesemia Code(s): E83.42 - HYPOMAGNESEMIA (16) Positive blood culture Code(s): R78.81 - BACTEREMIA (17) Pulmonary embolism Code(s): I26.99 - OTHER PULMONARY EMBOLISM WITHOUT ACUTE COR PULMONALE Assessment/Plan - Problems (1) Dehydration Code(s): E86.0 - DEHYDRATION (2) Syncope Assessment/Plan: Dehydration, anemia (pancytopenia), effects of CA with mets are likely principle contributosr to this episode. Pt admits she drinks little water or other fuids, and eats few fruits or vegetables. Orthostatic vital signs. Carotid artery US: minimal atherosclerosis; no stenoses. ECHO: normal LVEF; moderate MR (f/u repeat). Pt denies chest pain, dyspnea; has ocasionall bilateral ankle swelling in the summer. She keeps active in the warmer months outdoors; during the winter, she does hide dropper and occasionally goes up a flight of stairs. No hx heart disease "except I was told I had a heart murmur when I was 12". No prior hx syncope. She occasionally becomes dizzy on standing. Folow CA/pancytopenia workup. Code(s): R55 - SYNCOPE AND COLLAPSE (3) Renal disorder Assessment/Plan: hydration. F/u BUN/Cr, F/u with pneumatic tube operator Code(s): N28.9 - DISORDER OF KIDNEY AND URETER, UNSPECIFIED (4) Mitral regurgitation Assessment/Plan: Moderate (06/19), with normal LVEF and LV size; f/u repeat. Code(s): I34.0 - NONRHEUMATIC MITRAL (VALVE) INSUFFICIENCY (5) Anemia Assessment/Plan: With hydration, "normal" Hb is now significantly reduced. Stool quaiac, though likely pancytopenia from CA and/or its treatment. Code(s): D64.9 - ANEMIA, UNSPECIFIED (6) Pancytopenia Code(s): D61.818 - OTHER PANCYTOPENIA d/c telemetry
[2018-11-23 15:21] LABS: PARV B19 IGG 3.7 index (0.0-0.8); PARV B19 IGM 0.1 index (0.0-0.8)
--- NOTE | 2018-11-23 18:28 | PN ---
Teaching Attending Note Name of Resident: Julius Mckeon ATTENDING PHYSICIAN STATEMENT I saw and evaluated the patient. I reviewed the resident's note and discussed the case with the resident. I agree with the resident's findings and plan as documented. SUBJECTIVE: no fever or chills. No abd pain, no weakness, no numbness or tingling . walking in hospital with no problem . reports poor po intake prior to admission OBJECTIVE: NAD , awake, alert, oriented, MMM CV: RRR, no MRG Lungs: CTAB Ext : no edema or erythema Neuro : EOMI, round equal pupils, no facial droop, tongue at mid line . NL facial sensation. strength 5/5 in upper and lower extremities proximally and distally. sensation to light touch nl. ASSESSMENT AND PLAN: Pleasant 78 y/o lady with h/o breast cancer with Bone Mets on Ibrance, HTN, HLP and CKD 4 who presented after syncope 1- Syncope: evaluated when presented and thought to have dehydration contributing to that. - will obtain no non-urgent MRI of brain to r/o Mets as syncope happened in sitting position. ? non convulsive seizure ? - NL neuro exam, and Nl vitals now 2- Pancytopenia and neurtropenia : could be due to Ibrance . Parvo IgM neg. HIV Neg - consult hematology - neurtopenia precautions 3- HTN: cont verapamil 4- CKD : cr at base line DVT px : heparin . has CKD
--- NOTE | 2018-11-23 18:38 | PN ---
Progress Note (short form) - Note Progress Note: Patient seen and examined . Presented with syncope. Well known to me for the past 4-5 years. Metastatic breast ca with bone mets. Initially treated with an aromastase inhibitor and then fulvestrant and recently palbociclib added to regimen. Palbociclib last taken 11/19. Previously received zometa for bone mets when kidney function was adequate. Current kidney function is about baseline. Work up for syncope included a non contrast head CT which revealed an old lacunar infarct Carotid study was negative. Working diagnosis for syncope has been dehydration. Last Vital Signs Temp Pulse Resp BP Pulse Ox 98.7 F 82 20 116/54 L 98 11/23/18 14:00 11/23/18 14:00 11/23/18 14:00 11/23/18 14:00 11/23/18 09:00 HEENT: JUAN, EOM Intact Oropharynx: No thrush, No mucositis Neck: Supple Nodes: Without adenopathy Breasts: right breast - inverted nipple , no masses Cor: RSR, No murmurs, No gallops Lungs: Clear to P&A Abd: Soft, Normal bowel sounds, No organomegaly Ext:No significant edema Skin: No rashes, Integument intact CBC, BMP 11/23/18 05:30 11/23/18 05:30 Current Medications Generic Name Dose Route Start Last Admin Trade Name Freq PRN Reason Stop Dose Admin Atorvastatin Calcium 10 mg 11/20/18 22:00 11/22/18 21:12 Lipitor - PO 10 mg HS JOSÉ Administration Calcium Carbonate 500 mg 11/23/18 10:00 11/23/18 10:27 Os-London 500mg - PO 500 mg DAILY JOSÉ Administration Cholecalciferol 1,000 unit 11/21/18 10:00 11/23/18 10:27 Vitamin D3 - PO 1,000 unit DAILY JOSÉ Administration Heparin Sodium (Porcine) 5,000 unit 11/20/18 20:30 11/23/18 13:28 Heparin - SQ 5,000 unit TID JOSÉ Administration Sodium Chloride 1,000 mls @ 83 mls/hr 11/20/18 20:15 11/22/18 21:00 Normal Saline - IV 83 mls/hr ASDIR JOSÉ Administration Multivitamins/Minerals/Vitamin C 1 tab 11/21/18 10:00 11/23/18 10:27 Tab-A-Vit - PO 1 tab DAILY JOS[facility] Administration Non-Formulary Medication 75 mg 11/23/18 10:00 Palbociclib [Ibrance] PO DAILY [facility] Verapamil HCl 240 mg 11/22/18 10:00 11/23/18 10:27 Calan Sr - PO 240 mg DAILY JOS[facility] Administration Impression: Metastatic breast ca Syncope Dehydration Pancytopenia secondary to treatment CKD Plan: Check CBC in AM - if WBC is increased from 1.5 can discharge . If WBC is still at 1.5 would give neupogen ( granix) -480 mcg x 1 dose and then can be discharged. Patient will need MRI (Non contrast ) of head. This can be done as outpatient NO PALBOCICLIB as it is the etiology for the neutropenia and thrombocytopenia. Will re-resume same in future pending CBC count .
--- NOTE | 2018-11-23 20:40 | PN ---
Physical Exam: SUBJECTIVE: Patient seen and examined OBJECTIVE: Vital Signs Temperature 98.8 F 11/23/18 20:13 Pulse Rate 88 11/23/18 20:13 Respiratory Rate 18 11/23/18 20:13 Blood Pressure 147/54 L 11/23/18 20:13 O2 Sat by Pulse Oximetry (%) 100 11/23/18 20:13 GENERAL: AAOx3. NAD. Comfortable. Pleasant. HEENT: AT/NC. EOMI. LOGAN. Moist mucus membranes. NECK: Trachea midline, full range of motion, supple. LUNGS: CTA B/L. No wheezes noted. HEART: Regular rate and rhythm, S1, S2 without murmur, rub or gallop. ABDOMEN: Soft NT/ND. +BS in all 4Q's. EXTREMITIES: 2+ pulses, warm, well-perfused, no edema. 5/5 muscle strength in u/ l b/l extremities. NEUROLOGICAL: Cranial nerves II through XII grossly intact. Normal speech, gait not observed. Facial symmetry noted. Normal speech. B/l sensation intact. SKIN: Warm, dry, normal turgor, no rashes or lesions noted CBC, BMP 11/23/18 05:30 11/23/18 05:30 Active Medications Atorvastatin Calcium (Lipitor -) 10 mg PO HS [facility] Last Admin: 11/23/18 21:17 Dose: 10 mg Calcium Carbonate (Os-London 500mg -) 500 mg PO DAILY [facility] Last Admin: 11/23/18 10:27 Dose: 500 mg Cholecalciferol (Vitamin D3 -) 1,000 unit PO DAILY [facility] Last Admin: 11/23/18 10:27 Dose: 1,000 unit Heparin Sodium (Porcine) (Heparin -) 5,000 unit SQ TID [facility] Last Admin: 11/23/18 21:17 Dose: 5,000 unit Sodium Chloride (Normal Saline -) 1,000 mls @ 83 mls/hr IV ASDIR [facility] Last Admin: 11/22/18 21:00 Dose: 83 mls/hr Multivitamins/Minerals/Vitamin C (Tab-A-Vit -) 1 tab PO DAILY [facility] Last Admin: 11/23/18 10:27 Dose: 1 tab Verapamil HCl (Calan Sr -) 240 mg PO DAILY [facility] Last Admin: 11/23/18 10:27 Dose: 240 mg IMAGING: * Carotid artery US: minimal atherosclerosis; no stenoses. * ECHO: normal LVEF; moderate MR (f/u repeat). * Renal U/S: Mild atrophic kidneys w/o evid of hydronephrosis ASSESSMENT/PLAN: 78Fwith PMH of breast ca with mets to the bone, HTN, HLD, who presents to the ED after having a syncopal episode at home. #Syncope; 2/2 likely dehydration -Carotid doppler and echo noted above. -Per cardio, anemia workup. Syncope likely related to dehydration with anemia a contributing factor. -telemetry monitoring -f/u orthostatics -NS@83mls/hr #Pancytopenia and neutropenia -HIV neg, Parvovirus IgM neg, IgG 3.7 -Heme-onc consulted; await recs -Neutropenic precautions #SERGIO on CKD?; Cr now 2.1, yesterday 2.5 baseline Cr around 2; patient said Ibrance (immunosuppression med) elevates her Cr -PO hydration -repeat CMP in AM #Hx of Breast Cx; -Heme-onc consulted; await recs #HTN -Verapamil 240 mg PO QD #HLD -Atorvastatin 10 mg PO HS #Prophylaxis -SQH F/E/N -PO hydration -monitor electrolytes -sodium controlled dispo -full code -cont to monitor on tele Visit type - Emergency Visit Emergency Visit: Yes ED Registration Date: 11/23/18 Care time: The patient presented to the Emergency Department on the above date and was hospitalized for further evaluation of their emergent condition. - New Patient This patient is new to me today: No - Critical Care Critical Care patient: No
[2018-11-23] MEDS: ATORVASTATIN CA 10 MG TABLET (FP) PO SCH (21:17)
[2018-11-24] MEDS: HEPARIN NA (PORCINE) 5,000 UNITS/ML 1ML VIAL SQ SCH (06:07)
[2018-11-24 06:26] VITALS: TEMP 98.9
[2018-11-24 07:23] LABS: SERUM IRON SATURATION 27 % (15-55); TOTAL IRON BINDING CAPACITY 187 ug/dL (250-450); UIBC 137 ug/dL (118-369)
[2018-11-24 07:45] LABS: BASO % 1.5 % (0-2.0); EOS % 1.2 % (0-4.5); HEMATOCRIT 24.4 % (32.4-45.2); HEMOGLOBIN 8.1 GM/dL (10.7-15.3); LYMPH % 59.1 % (8-40); MCH 32.4 pg (25.7-33.7); MCHC 33.4 g/dl (32.0-36.0); MEAN CELL VOLUME 97.1 fl (80-96); MEAN PLT VOLUME 8.5 fl (7.5-11.1); MONO % 10.6 % (3.8-10.2); NEUT % 27.6 % (42.8-82.8); PLATELET COUNT 109 K/MM3 (134-434); RBC 2.51 M/mm3 (3.60-5.2); RDW 14.9 % (11.6-15.6)
[2018-11-24 08:12] LABS: WHITE BLOOD COUNT 1.2 K/mm3 (4.0-10.0)
[2018-11-24 08:48] LABS: ANION GAP 6 MMOL/L (8-16); BLOOD UREA NITROGEN 20 mg/dL (7-18); CALCIUM 7.9 mg/dL (8.5-10.1); CHLORIDE 114 mmol/L (98-107); CO2 22 mmol/L (21-32); CREATININE 1.8 mg/dL (0.55-1.3); GLUCOSE,RANDOM 101 mg/dL (74-106); POTASSIUM 3.8 mmol/L (3.5-5.1); SODIUM 142 mmol/L (136-145)
[2018-11-24 08:50] VITALS: BP 132/66; PULSE 97
[2018-11-24] MEDS ORDERED: TBO-FILGRASTIM 480 MCG/0.8 ML DISP.SYRIN SQ ONE (09:00)
[2018-11-24] MEDS ORDERED: PT OWN MED DRAWER 7, Y5N ONE (10:22)
[2018-11-24] MEDS: CHOLECALCIFEROL (VITAMIN D3) 1,000 UNIT TABLET (FP) PO SCH (11:05)
[2018-11-24] MEDS: CALCIUM (OYSTER SHELL) 500 MG TABLET (FP) PO SCH (11:05)
[2018-11-24] MEDS: MULTIVITAMINS (DAILY MVI) TABLET (FP) PO SCH (11:06)
[2018-11-24] MEDS: VERAPAMIL HCL 240 MG E.R. TABLET (FP) PO SCH (11:06)
--- NOTE | 2018-11-24 11:29 | PN ---
Teaching Attending Note Name of Resident: Ekta Bennett ATTENDING PHYSICIAN STATEMENT I saw and evaluated the patient. I reviewed the resident's note and discussed the case with the resident. I agree with the resident's findings and plan as documented. SUBJECTIVE: no fever or chills . No pain, no BEE . feels good and ambulating OBJECTIVE: NAD CV: RRR, no MRG Lungs: CTAB Ext : no edema or erythema ASSESSMENT AND PLAN: Pleasant 78 y/o lady with h/o breast cancer with Bone Mets on Ibrance, HTN, HLP and CKD 4 who presented after syncope 1- Syncope: could be due to volume depletion . - MRI as out pt to r/o brain mets. f/u with Dr. Tolliver for that . she is aware 2- Pancytopenia and neurtropenia: - gave Neupogent today - follow up with Dr. Tolliver in 3-4 days after dc 3- HTN: cont verapamil 4- CKD : cr at base line Dispo: dc home today
--- NOTE | 2018-11-24 11:49 | PN ---
Progress Note, Physician Chief Complaint: Pt A&Ox3; sittin up at bedside; no chest pain, palpitations, or dyspnea; occasional mild dizziness if she stands up quickly. 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 The patient reports that she was eating breakfast when she felt dizzy and the next thing she knew she was in the ED. The patient denies chest pain, shortness of breath, nausea, diaphoresis, changes in vision or ringing in the ears prior to LOC. Her son was in the kitchen and saw her on the ground. He is not currently at bedside for collateral history. The patient reports that she stayed up until 0400 this AM and woke up today at 1300. The patient denies any recent illness, fever, dysuria , hematuria, recent cough, recent travel. The patient only complains of some frontal headache, but denies any chest pain, shortness of breath or nausea. - Current Medication List Current Medications: Active Medications Atorvastatin Calcium (Lipitor -) 10 mg PO HS [facility] Last Admin: 11/23/18 21:17 Dose: 10 mg Calcium Carbonate (Os-London 500mg -) 500 mg PO DAILY [facility] Last Admin: 11/24/18 11:05 Dose: 500 mg Cholecalciferol (Vitamin D3 -) 1,000 unit PO DAILY [facility] Last Admin: 11/24/18 11:05 Dose: 1,000 unit Heparin Sodium (Porcine) (Heparin -) 5,000 unit SQ TID [facility] Last Admin: 11/24/18 06:07 Dose: 5,000 unit Sodium Chloride (Normal Saline -) 1,000 mls @ 83 mls/hr IV ASDIR [facility] Last Admin: 11/22/18 21:00 Dose: 83 mls/hr Multivitamins/Minerals/Vitamin C (Tab-A-Vit -) 1 tab PO DAILY [facility] Last Admin: 11/24/18 11:06 Dose: 1 tab Verapamil HCl (Calan Sr -) 240 mg PO DAILY [facility] Last Admin: 11/24/18 11:06 Dose: 240 mg - Objective Vital Signs: Vital Signs Temperature 98.9 F 11/24/18 06:00 Pulse Rate 97 H 11/24/18 08:50 Respiratory Rate 18 11/24/18 08:50 Blood Pressure 132/66 11/24/18 08:50 O2 Sat by Pulse Oximetry (%) 100 11/23/18 21:00 Constitutional: Yes: Calm Eyes: Yes: WNL HENT: Yes: WNL Neck: Yes: WNL Labs: CBC, BMP 11/24/18 05:40 11/24/18 05:40 Problem List - Problems (1) Dehydration Assessment/Plan: Continue to encourage PO liquid intake. Code(s): E86.0 - DEHYDRATION (2) Syncope Assessment/Plan: Dehydration, anemia (pancytopenia), effects of CA with mets are likely principle contributosr to this episode. Pt admits she drinks little water or other fuids, and eats few fruits or vegetables. Orthostatic vital signs: no significant abnormalities. Carotid artery US: minimal atherosclerosis; no stenoses. ECHO: normal LVEF; moderate MR (f/u repeat). Pt denies chest pain, dyspnea; has ocasionall bilateral ankle swelling in the summer. 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 No hx heart disease "except I was told I had a heart murmur when I was 12". No prior hx syncope. She occasionally becomes dizzy on standing. Folow CA/pancytopenia workup. Code(s): R55 - SYNCOPE AND COLLAPSE (3) Renal disorder Assessment/Plan: hydration. F/u BUN/Cr, F/u with ecological technical officer Code(s): N28.9 - DISORDER OF KIDNEY AND URETER, UNSPECIFIED (4) Mitral regurgitation Assessment/Plan: Moderate (06/19), with normal LVEF and LV size; f/u repeat. Code(s): I34.0 - NONRHEUMATIC MITRAL (VALVE) INSUFFICIENCY (5) Pancytopenia Code(s): D61.818 - OTHER PANCYTOPENIA (6) Breast CA Assessment/Plan: with metastaes to the bone. Pancytopenia. F/u with hem/oncologist. Code(s): C50.919 - MALIGNANT NEOPLASM OF UNSP SITE OF UNSPECIFIED FEMALE BREAST
[2018-11-24 13:13] LABS: ANISOCYTOSIS 1+; MACROCYTOSIS 0; PLATELET ESTIMATE DECREASED
== END 2018-11-24 12:26 | disposition home or self-care (01) | DRG 640 ==
LOC: JER 14:58 → SUPCPDRO 14:58 → JERBED 19:30 → J4W 11-21 15:43 → OBSVTOIN 11-23 15:31
PROVIDERS: ADMIT Internal Medicine; ATTEND Internal Medicine
DX: E86.0 Dehydration (principal); D61.810 Antineoplastic chemotherapy induced pancytopenia; N18.4 Chronic kidney disease, stage 4 (severe); C79.51 Secondary malignant neoplasm of bone; I12.9 Hypertensive chronic kidney disease with stage 1 through stage 4 chronic kidney disease, or unspecified chronic kidney disease; E87.0 Hyperosmolality and hypernatremia; R55 Syncope and collapse; I34.0 Nonrheumatic mitral (valve) insufficiency; Z85.3 Personal history of malignant neoplasm of breast; E78.5 Hyperlipidemia, unspecified; R00.0 Tachycardia, unspecified; Z88.0 Allergy status to penicillin; D64.9 Anemia, unspecified; Z86.73 Personal history of transient ischemic attack (TIA), and cerebral infarction without residual deficits
CPT/HCPCS: 36415; 70450-TC; 71045-TC-FY; 72125-TC; 76775-TC; 80048; 80053; 80061; 81003; 81015; 82607; 82728; 83540; 83550; 83615; 83721; 83735; 84100; 84443; 84466; 84484; 85025; 85027; 85044; 86747; 87086; 87389; 93005; 93010; 93306-TC; 93880-TC; 97116-GP; 97162-GP; 99285-25; G0378; J1447; J1644; J7030

== ENCOUNTER 2019-02-07 07:04 | Day surgery (SDC) | payer OTHER, BC ==
[2019-02-07] MEDS ORDERED: FULVESTRANT 250 MG/5 ML SYRINGE IM ONE (09:00)
[2019-02-07 10:03] VITALS: TEMP 97.7
[2019-02-07 10:20] LABS: EOS % 1.3 % (0-4.5); HEMATOCRIT 31.9 % (32.4-45.2); HEMOGLOBIN 10.6 GM/dL (10.7-15.3); LYMPH % 33.3 % (8-40); MCH 31.9 pg (25.7-33.7); MCHC 33.2 g/dl (32.0-36.0); MEAN CELL VOLUME 96.1 fl (80-96); MEAN PLT VOLUME 7.6 fl (7.5-11.1); MONO % 12.5 % (3.8-10.2); NEUT % 49.9 % (42.8-82.8); PLATELET COUNT 167 K/MM3 (134-434); RBC 3.32 M/mm3 (3.60-5.2); RDW 15.3 % (11.6-15.6); WHITE BLOOD COUNT 3.1 K/mm3 (4.0-10.0)
[2019-02-07 10:49] LABS: ALBUMIN 3.6 g/dl (3.4-5.0); ALK PHOS 50 U/L (45-117); ANION GAP 6 MMOL/L (8-16); BILIRUBIN,TOTAL 0.4 mg/dL (0.2-1); BLOOD UREA NITROGEN 31 mg/dL (7-18); CALCIUM 9.5 mg/dL (8.5-10.1); CHLORIDE 110 mmol/L (98-107); CO2 26 mmol/L (21-32); CREATININE 2.1 mg/dL (0.55-1.3); GLUCOSE,RANDOM 135 mg/dL (74-106); POTASSIUM 4.2 mmol/L (3.5-5.1); SGOT/AST 19 U/L (15-37); SGPT/ALT 17 U/L (13-61); SODIUM 143 mmol/L (136-145); TOT PROT 6.8 g/dl (6.4-8.2)
[2019-02-07 10:51] LABS: ALBUMIN 3.6 g/dl (3.4-5.0); BILIRUBIN,DIRECT 0.1 mg/dL (0.0-0.2); BILIRUBIN,TOTAL 0.5 mg/dL (0.2-1); MAGNESIUM 2.1 mg/dL (1.8-2.4); TOT PROT 6.9 g/dl (6.4-8.2)
[2019-02-07 14:14] VITALS: BP 121/60; PULSE 112
== END 2019-02-07 13:00 | disposition home or self-care (01) ==
LOC: JONCCHEMO 07:04 → J7W 12:20 → JONCCHEMO 13:00
PROVIDERS: ATTEND Internal Medicine Hematology & Oncology
DX: Z51.11 Encounter for antineoplastic chemotherapy (principal); C50.311 Malignant neoplasm of lower-inner quadrant of right female breast; C78.7 Secondary malignant neoplasm of liver and intrahepatic bile duct
CPT/HCPCS: 36415; 80053; 80076; 83735; 85025; 96402; J9395

== ENCOUNTER 2019-03-07 07:20 | Day surgery (SDC) | payer OTHER, BC ==
[2019-03-07] MEDS ORDERED: FULVESTRANT 250 MG/5 ML SYRINGE IM ONE (09:00)
[2019-03-07 10:00] LABS: BASO % 1.9 % (0-2.0); EOS % 0.7 % (0-4.5); HEMATOCRIT 33.1 % (32.4-45.2); LYMPH % 33.6 % (8-40); MCH 31.5 pg (25.7-33.7); MCHC 33.2 g/dl (32.0-36.0); MEAN CELL VOLUME 94.9 fl (80-96); MEAN PLT VOLUME 7.5 fl (7.5-11.1); MONO % 14.1 % (3.8-10.2); NEUT % 49.7 % (42.8-82.8); PLATELET COUNT 153 K/MM3 (134-434); RBC 3.49 M/mm3 (3.60-5.2); WHITE BLOOD COUNT 2.8 K/mm3 (4.0-10.0)
[2019-03-07 10:27] LABS: ALBUMIN 3.8 g/dl (3.4-5.0); ALK PHOS 51 U/L (45-117); ANION GAP 9 MMOL/L (8-16); BILIRUBIN,DIRECT 0.1 mg/dL (0.0-0.2); BILIRUBIN,TOTAL 0.6 mg/dL (0.2-1); BLOOD UREA NITROGEN 26 mg/dL (7-18); CALCIUM 10.1 mg/dL (8.5-10.1); CHLORIDE 106 mmol/L (98-107); CO2 26 mmol/L (21-32); CREATININE 1.9 mg/dL (0.55-1.3); GLUCOSE,RANDOM 157 mg/dL (74-106); MAGNESIUM 2.2 mg/dL (1.8-2.4); POTASSIUM 4.3 mmol/L (3.5-5.1); SGOT/AST 21 U/L (15-37); SGPT/ALT 17 U/L (13-61); SODIUM 141 mmol/L (136-145); TOT PROT 7.1 g/dl (6.4-8.2)
[2019-03-07 16:44] VITALS: BP 123/55; PULSE 114; TEMP 98.2
[2019-03-08 08:11] LABS: CARCINOEMBRYONIC ANTIGEN 4.9 ng/mL (0.0-4.7)
== END 2019-03-07 10:20 | disposition home or self-care (01) ==
LOC: JONCCHEMO 07:20 → J7W 10:48
PROVIDERS: ATTEND Internal Medicine Hematology & Oncology
DX: Z51.11 Encounter for antineoplastic chemotherapy (principal); C50.311 Malignant neoplasm of lower-inner quadrant of right female breast; C78.7 Secondary malignant neoplasm of liver and intrahepatic bile duct
CPT/HCPCS: 36415; 80048; 80076; 82378; 83735; 85025; 86300; 96402; J9395

== ENCOUNTER 2019-04-04 07:17 | Day surgery (SDC) | payer OTHER, BC ==
[2019-04-04 09:23] LABS: BASO % 2.4 % (0-2.0); EOS % 1.3 % (0-4.5); HEMATOCRIT 31.8 % (32.4-45.2); HEMOGLOBIN 10.4 GM/dL (10.7-15.3); LYMPH % 41.7 % (8-40); MCH 31.4 pg (25.7-33.7); MCHC 32.6 g/dl (32.0-36.0); MEAN CELL VOLUME 96.3 fl (80-96); MEAN PLT VOLUME 7.8 fl (7.5-11.1); MONO % 13.1 % (3.8-10.2); NEUT % 41.5 % (42.8-82.8); PLATELET COUNT 155 K/MM3 (134-434); RDW 15.6 % (11.6-15.6); WHITE BLOOD COUNT 2.5 K/mm3 (4.0-10.0)
[2019-04-04 09:49] LABS: ALBUMIN 3.6 g/dl (3.4-5.0); BILIRUBIN,DIRECT 0.1 mg/dL (0.0-0.2); BILIRUBIN,TOTAL 0.4 mg/dL (0.2-1); CALCIUM 9.2 mg/dL (8.5-10.1); CREATININE 1.9 mg/dL (0.55-1.3); MAGNESIUM 2.3 mg/dL (1.8-2.4); POTASSIUM 4.4 mmol/L (3.5-5.1); TOT PROT 6.6 g/dl (6.4-8.2)
[2019-04-04] MEDS ORDERED: FULVESTRANT 250 MG/5 ML SYRINGE IM ONE (10:00)
[2019-04-04] MEDS ORDERED: TBO-FILGRASTIM 480 MCG/0.8 ML DISP.SYRIN SQ ONE (12:45)
[2019-04-04 15:47] VITALS: BP 122/62; PULSE 93; TEMP 98
== END 2019-04-04 12:55 | disposition home or self-care (01) ==
LOC: JONCCHEMO 07:17 → J7W 11:21 → JONCCHEMO 12:55
PROVIDERS: ATTEND Internal Medicine Hematology & Oncology
PROC: 3E02305 Introduction of Other Antineoplastic into Muscle, Percutaneous Approach (ICD-10-PCS; principal; 2019-04-04)
PROC: 3E013GC Introduction of Other Therapeutic Substance into Subcutaneous Tissue, Percutaneous Approach (ICD-10-PCS; 2019-04-04)
DX: Z51.11 Encounter for antineoplastic chemotherapy (principal); C50.311 Malignant neoplasm of lower-inner quadrant of right female breast; C78.7 Secondary malignant neoplasm of liver and intrahepatic bile duct
CPT/HCPCS: 36415; 80048; 80076; 83735; 85025; 96372; 96402; J1447; J9395

== ENCOUNTER 2019-05-02 06:19 | Day surgery (SDC) | payer OTHER, BC ==
[2019-05-02] MEDS ORDERED: FULVESTRANT 250 MG/5 ML SYRINGE IM ONE (09:00)
[2019-05-02 09:19] LABS: BASO % 1.3 % (0-2.0); EOS % 2.9 % (0-4.5); HEMATOCRIT 30.7 % (32.4-45.2); HEMOGLOBIN 9.9 GM/dL (10.7-15.3); LYMPH % 49.2 % (8-40); MCH 31.5 pg (25.7-33.7); MCHC 32.3 g/dl (32.0-36.0); MEAN CELL VOLUME 97.7 fl (80-96); MEAN PLT VOLUME 8.5 fl (7.5-11.1); MONO % 8.9 % (3.8-10.2); NEUT % 37.7 % (42.8-82.8); PLATELET COUNT 130 K/MM3 (134-434); RBC 3.14 M/mm3 (3.60-5.2); RDW 14.6 % (11.6-15.6)
[2019-05-02 09:49] LABS: CALCIUM 9.2 mg/dL (8.5-10.1); POTASSIUM 4.1 mmol/L (3.5-5.1)
[2019-05-02 10:00] LABS: ALBUMIN 3.7 g/dl (3.4-5.0); BILIRUBIN,DIRECT 0.1 mg/dL (0.0-0.2); BILIRUBIN,TOTAL 0.5 mg/dL (0.2-1); BLOOD UREA NITROGEN 31.7 mg/dL (7-18); CREATININE 2.5 mg/dL (0.55-1.3); MAGNESIUM 2.2 mg/dL (1.8-2.4)
[2019-05-02 18:14] VITALS: BP 108/57; PULSE 91; TEMP 97.8
[2019-05-02] MEDS ORDERED: PORTA CATH FLUSH 10 ML IVPUSH ONE (18:14)
[2019-05-03 05:10] LABS: CARCINOEMBRYONIC ANTIGEN 4.8 ng/mL (0.0-4.7)
== END 2019-05-02 12:00 | disposition home or self-care (01) ==
LOC: JONCCHEMO 06:19 → J7W 10:20 → JONCCHEMO 12:00
PROVIDERS: ATTEND Internal Medicine Hematology & Oncology
DX: Z51.11 Encounter for antineoplastic chemotherapy (principal); C50.311 Malignant neoplasm of lower-inner quadrant of right female breast; C78.7 Secondary malignant neoplasm of liver and intrahepatic bile duct
CPT/HCPCS: 36415; 80048; 80076; 82378; 83735; 85025; 86300; 96402; J9395

== ENCOUNTER 2019-05-30 05:53 | Day surgery (SDC) | payer OTHER, BC ==
[2019-05-30 10:00] LABS: BASO % 1.8 % (0-2.0); EOS % 1.9 % (0-4.5); HEMATOCRIT 30.9 % (32.4-45.2); HEMOGLOBIN 10.2 GM/dL (10.7-15.3); LYMPH % 41.1 % (8-40); MCH 31.1 pg (25.7-33.7); MCHC 32.9 g/dl (32.0-36.0); MEAN CELL VOLUME 94.6 fl (80-96); MEAN PLT VOLUME 7.9 fl (7.5-11.1); MONO % 10.9 % (3.8-10.2); NEUT % 44.3 % (42.8-82.8); PLATELET COUNT 110 K/MM3 (134-434); RBC 3.27 M/mm3 (3.60-5.2); WHITE BLOOD COUNT 2.5 K/mm3 (4.0-10.0)
[2019-05-30] MEDS ORDERED: FULVESTRANT 250 MG/5 ML SYRINGE IM ONE (10:00)
[2019-05-30 10:31] LABS: ALBUMIN 3.7 g/dl (3.4-5.0); BILIRUBIN,DIRECT 0.1 mg/dL (0.0-0.2); BILIRUBIN,TOTAL 0.4 mg/dL (0.2-1); BLOOD UREA NITROGEN 36.4 mg/dL (7-18); CALCIUM 9.4 mg/dL (8.5-10.1); CREATININE 2.5 mg/dL (0.55-1.3); MAGNESIUM 2.1 mg/dL (1.8-2.4); POTASSIUM 4.1 mmol/L (3.5-5.1); TOT PROT 6.9 g/dl (6.4-8.2)
[2019-05-30 18:06] VITALS: BP 144/71; PULSE 101; TEMP 97.8
== END 2019-05-30 12:20 | disposition home or self-care (01) ==
LOC: JONCCHEMO 05:53 → J7W 10:43 → JONCCHEMO 12:20
PROVIDERS: ATTEND Internal Medicine Hematology & Oncology
DX: Z51.11 Encounter for antineoplastic chemotherapy (principal); C50.411 Malignant neoplasm of upper-outer quadrant of right female breast; C79.51 Secondary malignant neoplasm of bone; Z17.0 Estrogen receptor positive status [ER+]
CPT/HCPCS: 36415; 80048; 80076; 83735; 85025; 96402; J9395

== ENCOUNTER 2019-06-27 07:11 | Day surgery (SDC) | payer OTHER, BC ==
[2019-06-27] MEDS ORDERED: FULVESTRANT 250 MG/5 ML SYRINGE IM ONE (10:00)
[2019-06-27 12:11] LABS: BASO % 1.8 % (0-2.0); EOS % 1.1 % (0-4.5); HEMATOCRIT 30.2 % (32.4-45.2); HEMOGLOBIN 10.1 GM/dL (10.7-15.3); LYMPH % 26.1 % (8-40); MCH 31.1 pg (25.7-33.7); MCHC 33.5 g/dl (32.0-36.0); MEAN CELL VOLUME 92.9 fl (80-96); MEAN PLT VOLUME 7.4 fl (7.5-11.1); MONO % 3.4 % (3.8-10.2); NEUT % 67.6 % (42.8-82.8); PLATELET COUNT 177 K/MM3 (134-434); RBC 3.24 M/mm3 (3.60-5.2); RDW 14.1 % (11.6-15.6); WHITE BLOOD COUNT 2.6 K/mm3 (4.0-10.0)
[2019-06-27 12:39] LABS: ALBUMIN 3.6 g/dl (3.4-5.0); BILIRUBIN,DIRECT 0.2 mg/dL (0.0-0.2); BILIRUBIN,TOTAL 0.6 mg/dL (0.2-1); BLOOD UREA NITROGEN 36.7 mg/dL (7-18); CALCIUM 9.8 mg/dL (8.5-10.1); CREATININE 2.4 mg/dL (0.55-1.3); MAGNESIUM 2.3 mg/dL (1.8-2.4); POTASSIUM 4.4 mmol/L (3.5-5.1); TOT PROT 6.7 g/dl (6.4-8.2)
[2019-06-27 17:37] VITALS: BP 133/57; PULSE 94; TEMP 98.2
== END 2019-06-27 15:00 | disposition home or self-care (01) ==
LOC: JONCCHEMO 07:11 → J7W 13:43 → JONCCHEMO 15:00
PROVIDERS: ATTEND Internal Medicine Hematology & Oncology
DX: Z51.11 Encounter for antineoplastic chemotherapy (principal); C50.411 Malignant neoplasm of upper-outer quadrant of right female breast; C79.51 Secondary malignant neoplasm of bone; Z17.0 Estrogen receptor positive status [ER+]
CPT/HCPCS: 36415; 80048; 80076; 83735; 85025; 96402; J9395

== ENCOUNTER 2019-07-25 05:37 | Day surgery (SDC) | payer OTHER, BC ==
[2019-07-25 09:46] LABS: BASO % 3.1 % (0-2.0); EOS % 2.7 % (0-4.5); HEMATOCRIT 30.7 % (32.4-45.2); HEMOGLOBIN 9.9 GM/dL (10.7-15.3); LYMPH % 56.9 % (8-40); MCH 30.9 pg (25.7-33.7); MCHC 32.4 g/dl (32.0-36.0); MEAN CELL VOLUME 95.5 fl (80-96); MEAN PLT VOLUME 7.9 fl (7.5-11.1); MONO % 4.8 % (3.8-10.2); NEUT % 32.5 % (42.8-82.8); PLATELET COUNT 179 K/MM3 (134-434); RBC 3.21 M/mm3 (3.60-5.2); RDW 14.9 % (11.6-15.6)
[2019-07-25] MEDS ORDERED: FULVESTRANT 250 MG/5 ML SYRINGE IM ONE (10:00)
[2019-07-25 10:21] LABS: ALBUMIN 3.6 g/dl (3.4-5.0); BILIRUBIN,DIRECT 0.1 mg/dL (0.0-0.2); BILIRUBIN,TOTAL 0.5 mg/dL (0.2-1); BLOOD UREA NITROGEN 45.6 mg/dL (7-18); CALCIUM 9.4 mg/dL (8.5-10.1); CREATININE 2.5 mg/dL (0.55-1.3); MAGNESIUM 2.5 mg/dL (1.8-2.4); POTASSIUM 4.2 mmol/L (3.5-5.1); TOT PROT 6.6 g/dl (6.4-8.2)
[2019-07-25] MEDS ORDERED: TBO-FILGRASTIM 480 MCG/0.8 ML DISP.SYRIN SQ ONE (12:00)
[2019-07-25 16:48] VITALS: BP 124/58; PULSE 101; TEMP 98.4
== END 2019-07-25 12:30 | disposition home or self-care (01) ==
LOC: JONCCHEMO 05:37 → J7W 10:27 → JONCCHEMO 12:30
PROVIDERS: ATTEND Internal Medicine Hematology & Oncology
PROC: 3E013GC Introduction of Other Therapeutic Substance into Subcutaneous Tissue, Percutaneous Approach (ICD-10-PCS; principal; 2019-07-25)
PROC: 3E013GC Introduction of Other Therapeutic Substance into Subcutaneous Tissue, Percutaneous Approach (ICD-10-PCS; 2019-07-25)
DX: Z51.11 Encounter for antineoplastic chemotherapy (principal); C50.411 Malignant neoplasm of upper-outer quadrant of right female breast; C79.51 Secondary malignant neoplasm of bone; Z17.0 Estrogen receptor positive status [ER+]
CPT/HCPCS: 36415; 71101-TC-RT-FY; 80048; 80076; 83735; 85025; 96372; 96402; J1447; J9395

== ENCOUNTER 2019-08-08 11:52 | Day surgery (SDC) | payer OTHER, BC ==
[2019-08-08 10:21] VITALS: TEMP 98.6
[2019-08-08 10:30] LABS: BASO % 3.2 % (0-2.0); EOS % 1.6 % (0-4.5); LYMPH % 31.7 % (8-40); MCH 30.8 pg (25.7-33.7); MCHC 32.1 g/dl (32.0-36.0); MEAN CELL VOLUME 95.8 fl (80-96); MEAN PLT VOLUME 7.6 fl (7.5-11.1); NEUT % 52.5 % (42.8-82.8); PLATELET COUNT 174 K/MM3 (134-434); RBC 3.24 M/mm3 (3.60-5.2); RDW 15.6 % (11.6-15.6); WHITE BLOOD COUNT 2.8 K/mm3 (4.0-10.0)
[2019-08-08 10:48] LABS: ALBUMIN 3.7 g/dl (3.4-5.0); BILIRUBIN,TOTAL 0.6 mg/dL (0.2-1); BLOOD UREA NITROGEN 25.3 mg/dL (7-18); CALCIUM 9.2 mg/dL (8.5-10.1); MAGNESIUM 2.3 mg/dL (1.8-2.4); POTASSIUM 3.9 mmol/L (3.5-5.1); TOT PROT 6.4 g/dl (6.4-8.2)
[2019-08-08] MEDS ORDERED: TBO-FILGRASTIM 480 MCG/0.8 ML DISP.SYRIN SQ ONE (12:15)
[2019-08-08 14:50] VITALS: BP 140/70; PULSE 107
== END 2019-08-08 12:15 | disposition home or self-care (01) ==
LOC: JONCNONCHE 11:52 → J7W 11:55 → JONCNONCHE 12:15
PROVIDERS: ATTEND Internal Medicine Hematology & Oncology
PROC: 3E013GC Introduction of Other Therapeutic Substance into Subcutaneous Tissue, Percutaneous Approach (ICD-10-PCS; principal; 2019-08-08)
DX: C50.411 Malignant neoplasm of upper-outer quadrant of right female breast (principal); C79.51 Secondary malignant neoplasm of bone; Z17.0 Estrogen receptor positive status [ER+]; Z76.89 Persons encountering health services in other specified circumstances
CPT/HCPCS: 36415; 80053; 83735; 85025; 96372; J1447

== ENCOUNTER 2019-08-22 06:38 | Day surgery (SDC) | payer OTHER, BC ==
[2019-08-22] MEDS ORDERED: FULVESTRANT 250 MG/5 ML SYRINGE IM ONE (10:00)
[2019-08-22 12:37] LABS: BASO % 1.4 % (0-2.0); HEMATOCRIT 33.6 % (32.4-45.2); HEMOGLOBIN 10.8 GM/dL (10.7-15.3); LYMPH % 15.7 % (8-40); MCH 30.8 pg (25.7-33.7); MEAN CELL VOLUME 96.4 fl (80-96); MONO % 2.3 % (3.8-10.2); NEUT % 79.6 % (42.8-82.8); RBC 3.49 M/mm3 (3.60-5.2); RDW 15.5 % (11.6-15.6); WHITE BLOOD COUNT 6.4 K/mm3 (4.0-10.0)
[2019-08-22 13:05] LABS: MEAN PLT VOLUME 9.8 fl (7.5-11.1); PLATELET COUNT 193 K/MM3 (134-434)
[2019-08-22 13:07] LABS: BILIRUBIN,TOTAL 0.5 mg/dL (0.2-1); BLOOD UREA NITROGEN 47.4 mg/dL (7-18); CALCIUM 9.5 mg/dL (8.5-10.1); CREATININE 2.3 mg/dL (0.55-1.3); MAGNESIUM 2.5 mg/dL (1.8-2.4); POTASSIUM 4.8 mmol/L (3.5-5.1)
[2019-08-22 14:01] VITALS: BP 125/58; PULSE 107; TEMP 97.8
== END 2019-08-22 13:55 | disposition home or self-care (01) ==
LOC: JONCCHEMO 06:38 → J7W 13:40 → JONCCHEMO 13:55
PROVIDERS: ATTEND Internal Medicine Hematology & Oncology
DX: Z51.11 Encounter for antineoplastic chemotherapy (principal); C50.411 Malignant neoplasm of upper-outer quadrant of right female breast; C79.51 Secondary malignant neoplasm of bone; Z17.0 Estrogen receptor positive status [ER+]
CPT/HCPCS: 36415; 80053; 83735; 85025; 96402; J9395

== ENCOUNTER 2019-09-19 07:20 | Day surgery (SDC) | payer OTHER, BC ==
[2019-09-19] MEDS ORDERED: FULVESTRANT 250 MG/5 ML SYRINGE IM ONE (10:00)
[2019-09-19 12:54] LABS: BASO % 1.1 % (0-2.0); EOS % 0.7 % (0-4.5); HEMOGLOBIN 11.1 GM/dL (10.7-15.3); LYMPH % 17.1 % (8-40); MCH 30.3 pg (25.7-33.7); MCHC 31.7 g/dl (32.0-36.0); MEAN CELL VOLUME 95.7 fl (80-96); MEAN PLT VOLUME 8.7 fl (7.5-11.1); MONO % 3.6 % (3.8-10.2); NEUT % 77.5 % (42.8-82.8); PLATELET COUNT 213 K/MM3 (134-434); RBC 3.66 M/mm3 (3.60-5.2); RDW 14.4 % (11.6-15.6); WHITE BLOOD COUNT 4.8 K/mm3 (4.0-10.0)
[2019-09-19 13:26] LABS: ALBUMIN 3.6 g/dl (3.4-5.0); BILIRUBIN,TOTAL 0.5 mg/dL (0.2-1); CALCIUM 9.9 mg/dL (8.5-10.1); CREATININE 1.9 mg/dL (0.55-1.3); MAGNESIUM 2.4 mg/dL (1.8-2.4); POTASSIUM 4.5 mmol/L (3.5-5.1); TOT PROT 6.9 g/dl (6.4-8.2)
[2019-09-19 14:14] VITALS: BP 123/66; PULSE 106; TEMP 98
== END 2019-09-19 13:40 | disposition home or self-care (01) ==
LOC: JONCCHEMO 07:20 → J7W 13:28 → JONCCHEMO 13:40
PROVIDERS: ATTEND Internal Medicine Hematology & Oncology
DX: Z51.11 Encounter for antineoplastic chemotherapy (principal); C50.411 Malignant neoplasm of upper-outer quadrant of right female breast; C79.51 Secondary malignant neoplasm of bone; Z17.0 Estrogen receptor positive status [ER+]
CPT/HCPCS: 36415; 80053; 83735; 85025; 96402; J9395

== ENCOUNTER 2019-10-19 07:25 | Day surgery (SDC) | payer OTHER, BC ==
[2019-10-19] MEDS ORDERED: FULVESTRANT 250 MG/5 ML SYRINGE IM ONE (10:00)
[2019-10-19 11:00] LABS: BASO % 1.5 % (0-2.0); EOS % 1.2 % (0-4.5); HEMATOCRIT 34.2 % (32.4-45.2); HEMOGLOBIN 11.2 GM/dL (10.7-15.3); MCH 30.8 pg (25.7-33.7); MCHC 32.8 g/dl (32.0-36.0); MEAN CELL VOLUME 93.8 fl (80-96); MEAN PLT VOLUME 8.2 fl (7.5-11.1); MONO % 10.1 % (3.8-10.2); NEUT % 66.2 % (42.8-82.8); PLATELET COUNT 237 K/MM3 (134-434); RBC 3.65 M/mm3 (3.60-5.2); RDW 14.7 % (11.6-15.6); WHITE BLOOD COUNT 5.5 K/mm3 (4.0-10.0)
[2019-10-19 11:31] LABS: ALBUMIN 3.6 g/dl (3.4-5.0); BILIRUBIN,TOTAL 0.6 mg/dL (0.2-1); CALCIUM 9.5 mg/dL (8.5-10.1); CREATININE 1.8 mg/dL (0.55-1.3); MAGNESIUM 2.2 mg/dL (1.8-2.4); POTASSIUM 4.3 mmol/L (3.5-5.1); TOT PROT 6.7 g/dl (6.4-8.2)
[2019-10-19 12:31] VITALS: BP 119/56; PULSE 111; TEMP 98.3
== END 2019-10-19 12:00 | disposition home or self-care (01) ==
LOC: JONCCHEMO 07:25 → J7W 11:06 → JONCCHEMO 12:00
PROVIDERS: ATTEND Internal Medicine Hematology & Oncology
DX: Z51.11 Encounter for antineoplastic chemotherapy (principal); C50.411 Malignant neoplasm of upper-outer quadrant of right female breast; C79.51 Secondary malignant neoplasm of bone; Z17.0 Estrogen receptor positive status [ER+]
CPT/HCPCS: 36415; 80053; 83735; 85025; 96402; J9395

== ENCOUNTER 2019-11-16 07:16 | Day surgery (SDC) | payer OTHER, BC ==
[2019-11-16 09:20] LABS: BASO % 1.1 % (0-2.0); EOS % 0.8 % (0-4.5); HEMOGLOBIN 10.5 GM/dL (10.7-15.3); LYMPH % 41.1 % (8-40); MCH 30.6 pg (25.7-33.7); MCHC 32.8 g/dl (32.0-36.0); MEAN CELL VOLUME 93.1 fl (80-96); MEAN PLT VOLUME 8.1 fl (7.5-11.1); MONO % 12.6 % (3.8-10.2); NEUT % 44.4 % (42.8-82.8); PLATELET COUNT 173 K/MM3 (134-434); RBC 3.44 M/mm3 (3.60-5.2); RDW 16.3 % (11.6-15.6); WHITE BLOOD COUNT 2.6 K/mm3 (4.0-10.0)
[2019-11-16] MEDS ORDERED: FULVESTRANT 250 MG/5 ML SYRINGE IM ONE (10:00)
[2019-11-16 14:46] VITALS: BP 142/77; PULSE 110; TEMP 98.2
== END 2019-11-16 10:45 | disposition home or self-care (01) ==
LOC: JONCCHEMO 07:16 → J7W 10:36 → JONCCHEMO 10:45
PROVIDERS: ATTEND Internal Medicine Hematology & Oncology
DX: Z51.11 Encounter for antineoplastic chemotherapy (principal); C50.411 Malignant neoplasm of upper-outer quadrant of right female breast; Z17.0 Estrogen receptor positive status [ER+]; D70.1 Agranulocytosis secondary to cancer chemotherapy
CPT/HCPCS: 36415; 85025; 96402; J9395

== ENCOUNTER 2019-12-14 05:34 | Day surgery (SDC) | payer OTHER, BC ==
[2019-12-14 09:59] LABS: BASO % 1.2 % (0-2.0); HEMATOCRIT 32.7 % (32.4-45.2); HEMOGLOBIN 10.7 GM/dL (10.7-15.3); LYMPH % 36.6 % (8-40); MCH 30.2 pg (25.7-33.7); MCHC 32.6 g/dl (32.0-36.0); MEAN CELL VOLUME 92.7 fl (80-96); MEAN PLT VOLUME 8.1 fl (7.5-11.1); MONO % 9.1 % (3.8-10.2); NEUT % 52.1 % (42.8-82.8); PLATELET COUNT 103 K/MM3 (134-434); RBC 3.53 M/mm3 (3.60-5.2); RDW 17.3 % (11.6-15.6); WHITE BLOOD COUNT 2.2 K/mm3 (4.0-10.0)
[2019-12-14] MEDS ORDERED: FULVESTRANT 250 MG/5 ML SYRINGE IM ONE (10:00)
[2019-12-14 10:41] LABS: ALBUMIN 3.5 g/dl (3.4-5.0); BILIRUBIN,TOTAL 0.6 mg/dL (0.2-1); BLOOD UREA NITROGEN 35.9 mg/dL (7-18); CALCIUM 9.6 mg/dL (8.5-10.1); CREATININE 1.7 mg/dL (0.55-1.3); MAGNESIUM 2.1 mg/dL (1.8-2.4); POTASSIUM 4.1 mmol/L (3.5-5.1); TOT PROT 6.7 g/dl (6.4-8.2)
[2019-12-14 14:54] VITALS: BP 117/54; PULSE 110; TEMP 98.3
== END 2019-12-14 11:20 | disposition home or self-care (01) ==
LOC: JONCCHEMO 05:34 → J7W 10:59 → JONCCHEMO 11:20
PROVIDERS: ATTEND Internal Medicine Hematology & Oncology
DX: Z51.11 Encounter for antineoplastic chemotherapy (principal); C50.411 Malignant neoplasm of upper-outer quadrant of right female breast; C79.51 Secondary malignant neoplasm of bone; Z17.0 Estrogen receptor positive status [ER+]
CPT/HCPCS: 36415; 80053; 83735; 85025; 96402; J9395

== ENCOUNTER 2020-04-18 10:04 | Day surgery (SDC) | payer OTHER, BC ==
[2020-04-18] MEDS ORDERED: TBO-FILGRASTIM 480 MCG/0.8 ML DISP.SYRIN SQ ONE (10:45)
[2020-04-18 12:58] VITALS: BP 121/65; PULSE 119; TEMP 98
== END 2020-04-18 10:55 | disposition home or self-care (01) ==
LOC: JONCCHEMO 10:04 → EDSTATUS 18:54
PROVIDERS: ATTEND Nurse Practitioner Family
PROC: 3E013GC Introduction of Other Therapeutic Substance into Subcutaneous Tissue, Percutaneous Approach (ICD-10-PCS; principal; 2020-04-18)
DX: C50.411 Malignant neoplasm of upper-outer quadrant of right female breast (principal); C79.51 Secondary malignant neoplasm of bone; Z17.0 Estrogen receptor positive status [ER+]
CPT/HCPCS: 96372; J1447

== ENCOUNTER 2020-05-09 06:40 | Day surgery (SDC) | payer OTHER, BC ==
[2020-05-09] MEDS ORDERED: DENOSUMAB 120 MG/1.7 ML VIAL SQ ONE (10:00)
[2020-05-09] MEDS ORDERED: FULVESTRANT 250 MG/5 ML SYRINGE IM ONE (10:00)
[2020-05-09 10:20] LABS: BASO % 1.9 % (0-2.0); EOS % 3.6 % (0-4.5); HEMATOCRIT 31.9 % (32.4-45.2); HEMOGLOBIN 10.3 GM/dL (10.7-15.3); LYMPH % 31.3 % (8-40); MCH 30.2 pg (25.7-33.7); MCHC 32.3 g/dl (32.0-36.0); MEAN CELL VOLUME 93.3 fl (80-96); MEAN PLT VOLUME 8.8 fl (7.5-11.1); MONO % 10.1 % (3.8-10.2); NEUT % 53.1 % (42.8-82.8); PLATELET COUNT 186 K/MM3 (134-434); RBC 3.41 M/mm3 (3.60-5.2); RDW 16.9 % (11.6-15.6); WHITE BLOOD COUNT 3.4 K/mm3 (4.0-10.0)
[2020-05-09 10:51] LABS: ALBUMIN 3.4 g/dl (3.4-5.0); BILIRUBIN,DIRECT 0.1 mg/dL (0.0-0.2); BILIRUBIN,TOTAL 1.1 mg/dL (0.2-1); BLOOD UREA NITROGEN 32.4 mg/dL (7-18); CALCIUM 9.2 mg/dL (8.5-10.1); CREATININE 2.2 mg/dL (0.55-1.3); MAGNESIUM 2.2 mg/dL (1.8-2.4); POTASSIUM 4.3 mmol/L (3.5-5.1); TOT PROT 6.6 g/dl (6.4-8.2)
[2020-05-09 13:25] VITALS: BP 118/72; PULSE 101; TEMP 98.8
== END 2020-05-09 10:30 | disposition home or self-care (01) ==
LOC: JONCCHEMO 06:40
PROVIDERS: ATTEND Internal Medicine Hematology & Oncology
PROC: 3E02305 Introduction of Other Antineoplastic into Muscle, Percutaneous Approach (ICD-10-PCS; principal; 2020-05-09)
PROC: 3E013GC Introduction of Other Therapeutic Substance into Subcutaneous Tissue, Percutaneous Approach (ICD-10-PCS; 2020-05-09)
DX: Z51.11 Encounter for antineoplastic chemotherapy (principal); C50.411 Malignant neoplasm of upper-outer quadrant of right female breast; C79.51 Secondary malignant neoplasm of bone; Z17.0 Estrogen receptor positive status [ER+]
CPT/HCPCS: 36415; 80048; 80076; 82378; 83735; 85025; 86300; 96372; 96402; J0897; J9395

== ENCOUNTER 2020-07-10 06:55 | Day surgery (SDC) | payer OTHER, BC ==
[2020-07-10] MEDS ORDERED: FULVESTRANT 250 MG/5 ML SYRINGE IM ONE (10:00)
[2020-07-10] MEDS ORDERED: DENOSUMAB 120 MG/1.7 ML VIAL SQ ONE (10:00)
[2020-07-10 10:38] LABS: BASO % 1.1 % (0-2.0); EOS % 1.9 % (0-4.5); HEMATOCRIT 32.4 % (32.4-45.2); HEMOGLOBIN 10.4 GM/dL (10.7-15.3); MCH 29.6 pg (25.7-33.7); MEAN CELL VOLUME 92.4 fl (80-96); MEAN PLT VOLUME 8.5 fl (7.5-11.1); MONO % 4.6 % (3.8-10.2); NEUT % 60.4 % (42.8-82.8); PLATELET COUNT 123 K/MM3 (134-434); RBC 3.51 M/mm3 (3.60-5.2); RDW 15.3 % (11.6-15.6); WHITE BLOOD COUNT 2.3 K/mm3 (4.0-10.0)
[2020-07-10 11:09] LABS: ALBUMIN 3.7 g/dl (3.4-5.0); BILIRUBIN,DIRECT 0.2 mg/dL (0.0-0.2); BILIRUBIN,TOTAL 0.6 mg/dL (0.2-1); BLOOD UREA NITROGEN 31.9 mg/dL (7-18); CALCIUM 9.5 mg/dL (8.5-10.1); CREATININE 2.1 mg/dL (0.55-1.3); MAGNESIUM 2.6 mg/dL (1.8-2.4); POTASSIUM 4.5 mmol/L (3.5-5.1); TOT PROT 6.9 g/dl (6.4-8.2)
[2020-07-10 16:04] VITALS: BP 112/53; PULSE 105; TEMP 98.2
== END 2020-07-10 10:40 | disposition home or self-care (01) ==
LOC: JONCCHEMO 06:55
PROVIDERS: ATTEND Internal Medicine Hematology & Oncology
PROC: 3E01305 Introduction of Other Antineoplastic into Subcutaneous Tissue, Percutaneous Approach (ICD-10-PCS; principal; 2020-07-10)
PROC: 3E013GC Introduction of Other Therapeutic Substance into Subcutaneous Tissue, Percutaneous Approach (ICD-10-PCS; 2020-07-10)
DX: Z51.11 Encounter for antineoplastic chemotherapy (principal); C50.411 Malignant neoplasm of upper-outer quadrant of right female breast; Z17.0 Estrogen receptor positive status [ER+]
CPT/HCPCS: 36415; 80048; 80076; 82306; 82378; 83735; 85025; 86300; 96372; 96402; J0897; J9395

== ENCOUNTER 2020-08-08 06:49 | Day surgery (SDC) | payer OTHER, BC ==
--- OUTSIDE RECORDS SUMMARY | 2020-08-08 07:16 | XMS ---
:1940 Author Organization [facility] Care Team Providers Name Role Phone Sumabhanu Danny Mu Unavailable Apuzzo, Mu Unavailable Apuzzo, Mu Unavailable Apuzzo, Mu Unavailable Apuzzo, Mu Unavailable Apuzzo, Mu Unavailable Apuzzo, Mu Unavailable Apuzzo, Mu Unavailable Apuzzo, Mu Unavailable Apuzzo, Mu Unavailable Re-disclosure Warning The records that you are about to access may contain information from federally- assisted alcohol or drug abuse programs. If such information is present, then the following federally mandated warning applies: This information has been disclosed to you from records protected by federal confidentiality rules (42 CFR part 2). The federal rules prohibit you from making any further disclosure of this information unless further disclosure is expressly permitted by the written consent of the person to whom it pertains or as otherwise permitted by 42 CFR part 2. A general authorization for the release of medical or other information is NOT sufficient for this purpose. The Federal rules restrict any use of the information to criminally investigate or prosecute any alcohol or drug abuse patient.The records that you are about to access may contain highly sensitive health information, the redisclosure of which is protected by Article 27-F of the [facility] Public Health law. If you continue you may haveaccess to information: Regarding HIV / AIDS; Provided by facilities licensed or operated by the [facility] Office of Mental Health; or Provided by the [facility] Office for People With Developmental Disabilities. If such information is present, then the following [facility] mandated warning applies: This information has been disclosed to you from confidential records which are protected by state law. State law prohibits you from making any further disclosure of this information without the specific written consent of the person to whom it pertains, or as otherwise permitted by law. Any unauthorized further disclosure in violation of state law may result in a fine or penitentiary sentence or both. A general authorization for the release of medical or other information is NOT sufficient authorization for further disclosure. Encounters Encounter Providers Location Date Indications Data Source(s ) Attender: Danny 07/11/2020 [facility] ( [facility] [place] 12:00:00 AM EDT Medical, ) Office Attender: Danny Barker 07/11/2020 12:00:00 AM EDT [facility] ([facility], ) Office Attender: Danny Barker 07/11/2020 12:00:00 AM EDT [facility] ([facility]) Office Medications Medication Brand Start Product Dose Route Administrative Pharmacy [facility] Indications Reaction Description Data Name Date Form Instructions Instructions Source(s) Simvastatin SIMVAS 04/10/ TABLET 90 complet SIMV ASTATIN [facility] (St 20 MG Oral TATIN: 2019 [facility] Tablet 567648 12:00: Medical, SIMVASTATIN 00 AM PC) :[id number] EDT Ramipril 10 RAMIPR 01/23/ CAPSULE 90 complet ALDO IPRIL [facility] (St MG Oral IL:261 2019 ed [facility] Capsule 962 12:00: Medical, RAMIPRIL:26 00 AM ) 1961 EDT Insurance Providers Payer name Policy type Policy ID Covered Covered libertarian's Policy P collin / Coverage libertarian ID relationship to [employer] ormation type nova BC PPO [id number] SP [id number] MEDICARE [id number] SP [id number] THE EMPIRE [id number] 1 [id number] [place] [id number] 1 [id number] PART B DOWNSTATE MEDICARE [id number] SP [id number] A PPO [id number] SP [id number] MEDICARE [id number] SP [id number] BC PPO [id number] SP [id number] MEDICARE [id number] SP [id number] A Problems, Conditions, and Diagnoses Code Display Name Description Problem Type Effective Dates Data Source(s) Z85.3 Personal history PERSONAL HISTORY Problem 04/10/2020 ME [facility] ([facility] of malignant OF MALIGNANT 12:00:00 AM [facility] [place], neoplasm of breast NEOPLASM OF BREAST ) E78.5 Hyperlipidemia, HYPERLIPIDEMIA, Problem 04/10/2020 MED[facility] EN (St unspecified UNSPECIFIED 12:00:00 AM [facility], ) I10 Essential ESSENTIAL Problem 04/10/2020 [facility] ([address] (primary) (PRIMARY) 12:00:00 AM [facility] dical, hypertension HYPERTENSION ) Surgeries/Procedures Procedure Description Date Indications Data Source(s) Documentation of current 07/11/2020 [facility] ([facility] medications (procedure) 12:00:00 AM EDT [facility] ) Documentation of current 07/11/2020 [facility] ([facility] medications (procedure) 12:00:00 AM EDT [facility] ) OFFICE OUTPATIENT VISIT 07/11/2020 [facility] EN ([facility] 15 MINUTES 12:00:00 AM [facility], ) Documentation of current 04/10/2020 MED [facility] ([facility] medications (procedure) 12:00:00 AM EDT [facility] ) Documentation of current 04/10/2020 [facility] ([facility] medications (procedure) 12:00:00 AM EDT [facility] ) Documentation of current 04/10/2020 [facility] ([facility] medications (procedure) 12:00:00 AM EDT [facility]) Documentation of current 04/10/2020 [facility] ([facility] medications (procedure) 12:00:00 AM EDT [facility] ) Documentation of current 04/10/2020 [facility] ([facility] medications (procedure) 12:00:00 AM EDT [facility] ) Documentation of current 04/10/2020 [facility] ([facility] medications (procedure) 12:00:00 AM EDT [facility]) Social History Code Duration Value Status Description Data Source(s ) Smoking 07/11/2020 (-)smoke completed (-)smoke (-)ETOH 1 MED[facility] N ([facility] 12:00:00 AM EDT (-)ETOH 1 tea/day lives with [facility] ) tea/day lives son, with son, Smoking 07/11/2020 Unknown if ever completed Unknown if ever MED[facility] EN ([facility] 12:00:00 AM EDT smoked smoked [facility], ) Vital Signs ID Date Data Source UNK Name Value Range Interpretation Code Description Data Source(s) Body mass index 30.5 kg/m2 30.5 kg/m2 [facility] ([facility] (BMI) [Ratio] Medical, ) Diastolic blood 72 mm[Hg] 72 mm[Hg] [facility] ([facility] pressure Medical, ) Systolic blood 134 mm[Hg] 134 mm[Hg] [facility] ([facility] pressure [facility], ) Body weight 167 lb 167 lb [facility] ([facility], ) Body height 62 in 62 in [facility] ([facility], ) Body mass index 32.7 kg/m2 32.7 kg/m2 [facility] ([facility] (BMI) [Ratio] Medical, ) Diastolic blood 70 mm[Hg] 70 mm[Hg] [facility] ([facility] pressure Medical, ) Systolic blood 140 mm[Hg] 140 mm[Hg] [facility] ([facility] pressure [facility], ) Body weight 179 lb 179 lb [facility] ([facility], ) Body height 62 in 62 in [facility] ([facility], )
[2020-08-08] MEDS ORDERED: DENOSUMAB 120 MG/1.7 ML VIAL SQ ONE (10:00)
[2020-08-08] MEDS ORDERED: FULVESTRANT 250 MG/5 ML SYRINGE IM ONE (10:00)
[2020-08-08 11:54] LABS: BASO % 1.2 % (0-2.0); EOS % 0.5 % (0-4.5); HEMOGLOBIN 10.3 GM/dL (10.7-15.3); LYMPH % 30.5 % (8-40); MCH 30.3 pg (25.7-33.7); MCHC 32.3 g/dl (32.0-36.0); MEAN CELL VOLUME 93.8 fl (80-96); MEAN PLT VOLUME 8.5 fl (7.5-11.1); MONO % 5.8 % (3.8-10.2); PLATELET COUNT 120 K/MM3 (134-434); RBC 3.42 M/mm3 (3.60-5.2); RDW 17.8 % (11.6-15.6); WHITE BLOOD COUNT 2.3 K/mm3 (4.0-10.0)
[2020-08-08 12:29] LABS: ALBUMIN 3.7 g/dl (3.4-5.0); BILIRUBIN,DIRECT 0.1 mg/dL (0.0-0.2); BILIRUBIN,TOTAL 0.5 mg/dL (0.2-1); BLOOD UREA NITROGEN 30.3 mg/dL (7-18); CALCIUM 9.2 mg/dL (8.5-10.1); CREATININE 1.8 mg/dL (0.55-1.3); MAGNESIUM 2.3 mg/dL (1.8-2.4); POTASSIUM 4.4 mmol/L (3.5-5.1); TOT PROT 7.3 g/dl (6.4-8.2)
[2020-08-08 15:41] VITALS: BP 135/69; PULSE 114; TEMP 98
== END 2020-08-08 12:00 | disposition home or self-care (01) ==
LOC: JONCCHEMO 06:49
PROVIDERS: ATTEND Internal Medicine Hematology & Oncology
PROC: 3E02305 Introduction of Other Antineoplastic into Muscle, Percutaneous Approach (ICD-10-PCS; principal; 2020-08-08)
PROC: 3E013GC Introduction of Other Therapeutic Substance into Subcutaneous Tissue, Percutaneous Approach (ICD-10-PCS; 2020-08-08)
DX: Z51.11 Encounter for antineoplastic chemotherapy (principal); C50.411 Malignant neoplasm of upper-outer quadrant of right female breast; C79.51 Secondary malignant neoplasm of bone; Z17.0 Estrogen receptor positive status [ER+]
CPT/HCPCS: 36415; 80048; 80076; 82378; 83735; 85025; 86300; 96372; 96402; J0897; J9395

== ENCOUNTER 2020-09-18 06:50 | Day surgery (SDC) | payer OTHER, BC ==
[~2020-09-18 06:50] MED LIST changes: +DENOSUMAB 120 MG/1.7 ML VIAL SQ ONE; -ZOLEDRONIC ACID 3 MG in SODIUM CHLORIDE 100 ML IVPB ONE
[2020-09-18] MEDS ORDERED: DENOSUMAB 120 MG/1.7 ML VIAL SQ ONE (10:00)
[2020-09-18] MEDS ORDERED: FULVESTRANT 250 MG/5 ML SYRINGE IM ONE (10:00)
[2020-09-18 10:58] LABS: BASO % 1.4 % (0-2.0); HEMOGLOBIN 11.2 GM/dL (10.7-15.3); MCH 30.1 pg (25.7-33.7); MCHC 32.1 g/dl (32.0-36.0); MEAN CELL VOLUME 93.8 fl (80-96); MEAN PLT VOLUME 7.3 fl (7.5-11.1); MONO % 8.2 % (3.8-10.2); NEUT % 72.4 % (42.8-82.8); PLATELET COUNT 308 K/MM3 (134-434); RBC 3.73 M/mm3 (3.60-5.2); RDW 17.9 % (11.6-15.6); WHITE BLOOD COUNT 7.7 K/mm3 (4.0-10.0)
[2020-09-18 11:12] LABS: POTASSIUM 4.1 mmol/L (3.5-5.1)
[2020-09-18 11:15] LABS: ALBUMIN 3.8 g/dl (3.4-5.0); BLOOD UREA NITROGEN 14.9 mg/dL (7-18); MAGNESIUM 2.4 mg/dL (1.8-2.4)
[2020-09-18 11:18] LABS: CREATININE 1.6 mg/dL (0.55-1.3)
[2020-09-18 11:19] LABS: BILIRUBIN,TOTAL 0.8 mg/dL (0.2-1); TOT PROT 7.2 g/dl (6.4-8.2)
[2020-09-18 14:47] VITALS: BP 133/65; PULSE 98; TEMP 98.3
== END 2020-09-18 11:00 | disposition home or self-care (01) ==
LOC: JONCCHEMO 06:50
PROVIDERS: ATTEND Internal Medicine Hematology & Oncology
PROC: 3E01305 Introduction of Other Antineoplastic into Subcutaneous Tissue, Percutaneous Approach (ICD-10-PCS; principal; 2020-09-18)
PROC: 3E013GC Introduction of Other Therapeutic Substance into Subcutaneous Tissue, Percutaneous Approach (ICD-10-PCS; 2020-09-18)
DX: Z51.11 Encounter for antineoplastic chemotherapy (principal); C50.411 Malignant neoplasm of upper-outer quadrant of right female breast; C79.51 Secondary malignant neoplasm of bone; Z17.0 Estrogen receptor positive status [ER+]
CPT/HCPCS: 36415; 80053; 82378; 83735; 85025; 86300; 96372; 96402; J0897; J9395

== ENCOUNTER 2020-10-21 06:26 | Day surgery (SDC) | payer OTHER, BC ==
[2020-10-21] MEDS ORDERED: DENOSUMAB 120 MG/1.7 ML VIAL SQ ONE (10:00)
[2020-10-21] MEDS ORDERED: FULVESTRANT 250 MG/5 ML SYRINGE IM ONE (10:00)
[2020-10-21 11:43] LABS: BASO % 0.7 % (0-2.0); EOS % 0.9 % (0-4.5); HEMATOCRIT 37.2 % (32.4-45.2); LYMPH % 23.1 % (8-40); MCH 29.3 pg (25.7-33.7); MCHC 32.3 g/dl (32.0-36.0); MEAN CELL VOLUME 90.6 fl (80-96); MEAN PLT VOLUME 8.5 fl (7.5-11.1); MONO % 8.5 % (3.8-10.2); NEUT % 66.8 % (42.8-82.8); PLATELET COUNT 190 K/MM3 (134-434); RDW 15.6 % (11.6-15.6); WHITE BLOOD COUNT 6.7 K/mm3 (4.0-10.0)
[2020-10-21 12:08] LABS: POTASSIUM 4.3 mmol/L (3.5-5.1)
[2020-10-21 12:10] LABS: ALBUMIN 3.8 g/dl (3.4-5.0); BLOOD UREA NITROGEN 31.1 mg/dL (7-18); CALCIUM 10.1 mg/dL (8.5-10.1); MAGNESIUM 2.2 mg/dL (1.8-2.4)
[2020-10-21 12:13] LABS: BILIRUBIN,DIRECT 0.2 mg/dL (0.0-0.2); CREATININE 1.6 mg/dL (0.55-1.3)
[2020-10-21 12:15] LABS: BILIRUBIN,TOTAL 0.7 mg/dL (0.2-1); TOT PROT 7.2 g/dl (6.4-8.2)
[2020-10-21 14:46] VITALS: BP 128/67; PULSE 116; TEMP 98.7
== END 2020-10-21 11:10 | disposition home or self-care (01) ==
LOC: JONCCHEMO 06:26
PROVIDERS: ATTEND Internal Medicine Hematology & Oncology
PROC: 005 Central Nervous System and Cranial Nerves, Destruction (ICD-10-PCS; principal; 2020-10-21)
PROC: 3E013GC Introduction of Other Therapeutic Substance into Subcutaneous Tissue, Percutaneous Approach (ICD-10-PCS; 2020-10-21)
DX: Z51.11 Encounter for antineoplastic chemotherapy (principal); C50.411 Malignant neoplasm of upper-outer quadrant of right female breast; Z17.1 Estrogen receptor negative status [ER-]; C79.51 Secondary malignant neoplasm of bone; E11.9 Type 2 diabetes mellitus without complications
CPT/HCPCS: 36415; 80048; 80076; 83735; 85025; 96372; 96402; J0897; J9395

== ENCOUNTER 2020-11-20 07:50 | Day surgery (SDC) | payer OTHER, BC ==
[2020-11-20] MEDS ORDERED: DENOSUMAB 120 MG/1.7 ML VIAL SQ ONE (10:00)
[2020-11-20] MEDS ORDERED: FULVESTRANT 250 MG/5 ML SYRINGE IM ONE (10:00)
[2020-11-20 11:44] LABS: BASO % 1.1 % (0-2.0); EOS % 1.1 % (0-4.5); HEMOGLOBIN 11.8 GM/dL (10.7-15.3); LYMPH % 24.3 % (8-40); MCH 28.5 pg (25.7-33.7); MCHC 32.7 g/dl (32.0-36.0); MEAN CELL VOLUME 87.4 fl (80-96); MEAN PLT VOLUME 8.4 fl (7.5-11.1); MONO % 8.8 % (3.8-10.2); NEUT % 64.7 % (42.8-82.8); PLATELET COUNT 203 K/MM3 (134-434); RBC 4.13 M/mm3 (3.60-5.2); RDW 14.7 % (11.6-15.6); WHITE BLOOD COUNT 6.9 K/mm3 (4.0-10.0)
[2020-11-20 12:09] LABS: POTASSIUM 4.5 mmol/L (3.5-5.1)
[2020-11-20 12:16] LABS: BLOOD UREA NITROGEN 27.8 mg/dL (7-18); CALCIUM 10.2 mg/dL (8.5-10.1)
[2020-11-20 12:17] LABS: ALBUMIN 3.8 g/dl (3.4-5.0); MAGNESIUM 2.2 mg/dL (1.8-2.4)
[2020-11-20 12:20] LABS: BILIRUBIN,DIRECT 0.2 mg/dL (0.0-0.2); CREATININE 1.7 mg/dL (0.55-1.3)
[2020-11-20 12:21] LABS: BILIRUBIN,TOTAL 0.9 mg/dL (0.2-1)
[2020-11-20 12:22] LABS: TOT PROT 7.2 g/dl (6.4-8.2)
[2020-11-20 15:33] VITALS: PULSE 113; TEMP 97.5
[2020-11-21 07:28] VITALS: BP 115/54
== END 2020-11-20 12:00 | disposition home or self-care (01) ==
LOC: JONCCHEMO 07:50
PROVIDERS: ATTEND Internal Medicine Hematology & Oncology
PROC: 3E02305 Introduction of Other Antineoplastic into Muscle, Percutaneous Approach (ICD-10-PCS; principal; 2020-11-20)
PROC: 3E013GC Introduction of Other Therapeutic Substance into Subcutaneous Tissue, Percutaneous Approach (ICD-10-PCS; 2020-11-20)
DX: Z51.11 Encounter for antineoplastic chemotherapy (principal); C50.411 Malignant neoplasm of upper-outer quadrant of right female breast; C79.51 Secondary malignant neoplasm of bone; E11.9 Type 2 diabetes mellitus without complications
CPT/HCPCS: 36415; 80048; 80076; 82378; 83735; 85025; 86300; 96372; 96402; J0897; J9395

== ENCOUNTER 2020-12-18 07:53 | Day surgery (SDC) | payer OTHER, BC ==
[2020-12-18] MEDS ORDERED: SODIUM CHLORIDE 0.45% 500 ML IV ONE (09:00)
[2020-12-18] MEDS ORDERED: FULVESTRANT 250 MG/5 ML SYRINGE IM ONE (10:00)
[2020-12-18] MEDS ORDERED: DENOSUMAB 120 MG/1.7 ML VIAL SQ ONE (10:15)
[2020-12-18] MEDS ORDERED: metroNIDAZOLE 500 MG TABLET PO ONE (16:12)
[2020-12-18] MEDS ORDERED: SODIUM CHLORIDE 0.45%/POT 20 MEQ/1,000 ML INFUS.BAG IV SCH (16:15)
[2020-12-18 18:35] VITALS: BP 143/70; PULSE 95; TEMP 98.1
[2020-12-18 18:37] LABS: BASO % 0.7 % (0-2.0); HEMATOCRIT 35.7 % (32.4-45.2); HEMOGLOBIN 11.6 GM/dL (10.7-15.3); LYMPH % 26.3 % (8-40); MCH 27.7 pg (25.7-33.7); MCHC 32.6 g/dl (32.0-36.0); MEAN CELL VOLUME 84.8 fl (80-96); MEAN PLT VOLUME 7.8 fl (7.5-11.1); MONO % 7.1 % (3.8-10.2); NEUT % 63.9 % (42.8-82.8); PLATELET COUNT 261 K/MM3 (134-434); RBC 4.21 M/mm3 (3.60-5.2); RDW 15.6 % (11.6-15.6); WHITE BLOOD COUNT 6.6 K/mm3 (4.0-10.0)
[2020-12-18 18:54] LABS: CHLORIDE 105 mmol/L (98-107); POTASSIUM 4.5 mmol/L (3.5-5.1); SODIUM 137 mmol/L (136-145)
[2020-12-18 18:57] LABS: ALBUMIN 3.4 g/dl (3.4-5.0); ANION GAP 8 MMOL/L (8-16); BLOOD UREA NITROGEN 19.9 mg/dL (7-18); CO2 24 mmol/L (21-32); GLUCOSE,RANDOM 134 mg/dL (74-106); MAGNESIUM 2.1 mg/dL (1.8-2.4)
[2020-12-18 19:00] LABS: BILIRUBIN,DIRECT 0.2 mg/dL (0.0-0.2); CREATININE 1.7 mg/dL (0.55-1.3); SGOT/AST 30 U/L (15-37); SGPT/ALT 22 U/L (13-61)
[2020-12-18 19:01] LABS: BILIRUBIN,TOTAL 0.6 mg/dL (0.2-1)
[2020-12-18 19:02] LABS: TOT PROT 7.1 g/dl (6.4-8.2)
[2020-12-18 19:03] LABS: ALK PHOS 71 U/L (45-117)
[2020-12-18 22:38] LABS: AMYLASE 23 U/L (25-115); LIPASE 45 U/L (73-393)
== END 2020-12-18 18:38 | disposition home or self-care (01) ==
LOC: JONCCHEMO 07:53
PROVIDERS: ATTEND Internal Medicine Hematology & Oncology
PROC: 3E033GC Introduction of Other Therapeutic Substance into Peripheral Vein, Percutaneous Approach (ICD-10-PCS; principal; 2020-12-18)
PROC: 3E02305 Introduction of Other Antineoplastic into Muscle, Percutaneous Approach (ICD-10-PCS; 2020-12-18)
PROC: 3E013GC Introduction of Other Therapeutic Substance into Subcutaneous Tissue, Percutaneous Approach (ICD-10-PCS; 2020-12-18)
DX: Z51.11 Encounter for antineoplastic chemotherapy (principal); C50.411 Malignant neoplasm of upper-outer quadrant of right female breast; C79.51 Secondary malignant neoplasm of bone; E11.9 Type 2 diabetes mellitus without complications
CPT/HCPCS: 36415; 74018-TC-FY; 80048; 80076; 82150; 82378; 82550; 83690; 83735; 84484; 85025; 96365; 96372; 96402; J0897; J3480; J9395

== ENCOUNTER 2020-12-18 18:44 | Emergency (ER) | payer OTHER, BC ==
[2020-12-18 19:21] VITALS: BMI 33.3
[2020-12-18] MEDS ORDERED: LACTATED RINGERS SOLUTION 1000 ML INFUS.BAG IV ONE (20:45)
[2020-12-18 21:20] LABS: EPI CELLS >36 /uL (0-25.1); HYALINE CASTS 2 /uL (0-3.1); URINE APPEARANCE CLEAR; URINE BACTERIA 54 /uL (0-1359); URINE BILIRUBIN NEGATIVE (NEGATIVE); URINE COLOR YELLOW; URINE GLUCOSE (UA) NEGATIVE (NEGATIVE); URINE KETONE 1+ (NEGATIVE); URINE LEUK ESTERASE 1+ (NEGATIVE); URINE NITRITE NEGATIVE (NEGATIVE); URINE PROTEIN NEGATIVE (NEGATIVE); URINE RBC 38 /uL (0-23.9); URINE UROBILINOGEN 0.2 mg/dL (0.2-1.0); URINE WBC 154 /uL (0-25.8)
[2020-12-18] MEDS ORDERED: metroNIDAZOLE 250 MG TABLET PO ONE (22:23)
[2020-12-18 22:57] VITALS: BP 145/66; PULSE 99; TEMP 97.9
== END 2020-12-18 23:10 | disposition home or self-care (01) ==
LOC: JER 18:44
DX: K56.7 Ileus, unspecified (principal); K57.92 Diverticulitis of intestine, part unspecified, without perforation or abscess without bleeding
CPT/HCPCS: 36415; 71046-TC-FY; 74018-TC-FY; 74176-TC; 80048; 80076; 81003; 82150; 82378; 82550; 83690; 83735; 84484; 85025; 87086; 96365; 96372; 96402; 99285-25; J0897; J3480; J9395

== ENCOUNTER 2021-01-15 07:14 | Day surgery (SDC) | payer OTHER, BC ==
[2021-01-15] MEDS ORDERED: DENOSUMAB 120 MG/1.7 ML VIAL SQ ONE (10:00)
[2021-01-15] MEDS ORDERED: SODIUM CHLORIDE 0.45% 500 ML IV ONE (10:00)
[2021-01-15] MEDS ORDERED: FULVESTRANT 250 MG/5 ML SYRINGE IM ONE (10:00)
[2021-01-15 11:39] LABS: BASO % 0.8 % (0-2.0); EOS % 3.9 % (0-4.5); HEMATOCRIT 39.6 % (32.4-45.2); HEMOGLOBIN 12.6 GM/dL (10.7-15.3); LYMPH % 21.1 % (8-40); MCH 26.9 pg (25.7-33.7); MCHC 31.9 g/dl (32.0-36.0); MEAN CELL VOLUME 84.4 fl (80-96); MONO % 4.9 % (3.8-10.2); NEUT % 69.3 % (42.8-82.8); PLATELET COUNT 257 K/MM3 (134-434); RBC 4.69 M/mm3 (3.60-5.2); RDW 17.8 % (11.6-15.6); WHITE BLOOD COUNT 10.1 K/mm3 (4.0-10.0)
[2021-01-15 12:00] LABS: POTASSIUM 4.2 mmol/L (3.5-5.1)
[2021-01-15 12:02] LABS: CALCIUM 9.8 mg/dL (8.5-10.1)
[2021-01-15 12:03] LABS: ALBUMIN 3.9 g/dl (3.4-5.0); BLOOD UREA NITROGEN 27.4 mg/dL (7-18); MAGNESIUM 2.5 mg/dL (1.8-2.4)
[2021-01-15 12:06] LABS: BILIRUBIN,DIRECT 0.2 mg/dL (0.0-0.2); CREATININE 1.9 mg/dL (0.55-1.3)
[2021-01-15 12:08] LABS: BILIRUBIN,TOTAL 0.6 mg/dL (0.2-1); TOT PROT 7.8 g/dl (6.4-8.2)
[2021-01-15 15:07] VITALS: TEMP 98
[2021-01-15 15:10] VITALS: BP 141/64; PULSE 97
== END 2021-01-15 13:50 | disposition home or self-care (01) ==
LOC: JONCCHEMO 07:14
PROVIDERS: ATTEND Internal Medicine Hematology & Oncology
PROC: 3E02305 Introduction of Other Antineoplastic into Muscle, Percutaneous Approach (ICD-10-PCS; principal; 2021-01-15)
PROC: 3E013GC Introduction of Other Therapeutic Substance into Subcutaneous Tissue, Percutaneous Approach (ICD-10-PCS; 2021-01-15)
PROC: 3E033GC Introduction of Other Therapeutic Substance into Peripheral Vein, Percutaneous Approach (ICD-10-PCS; 2021-01-15)
DX: Z51.11 Encounter for antineoplastic chemotherapy (principal); C50.411 Malignant neoplasm of upper-outer quadrant of right female breast; C79.51 Secondary malignant neoplasm of bone; E11.9 Type 2 diabetes mellitus without complications
CPT/HCPCS: 36415; 80048; 80076; 82306; 82378; 83735; 85025; 86300; 96360; 96361; 96372; 96402; J0897; J9395

== ENCOUNTER 2021-02-12 07:16 | Day surgery (SDC) | payer OTHER, BC ==
[2021-02-12] MEDS ORDERED: SODIUM CHLORIDE 500 ML IV ONE (09:00)
[2021-02-12] MEDS ORDERED: DENOSUMAB 120 MG/1.7 ML VIAL SQ ONE (10:00)
[2021-02-12] MEDS ORDERED: FULVESTRANT 250 MG/5 ML SYRINGE IM ONE (10:00)
[2021-02-12 11:16] LABS: BASO % 0.7 % (0-2.0); EOS % 2.2 % (0-4.5); HEMATOCRIT 33.9 % (32.4-45.2); HEMOGLOBIN 11.4 GM/dL (10.7-15.3); LYMPH % 17.6 % (8-40); MCH 27.5 pg (25.7-33.7); MCHC 33.6 g/dl (32.0-36.0); MEAN CELL VOLUME 81.8 fl (80-96); MEAN PLT VOLUME 7.9 fl (7.5-11.1); NEUT % 69.5 % (42.8-82.8); PLATELET COUNT 256 K/MM3 (134-434); RBC 4.14 M/mm3 (3.60-5.2); WHITE BLOOD COUNT 7.8 K/mm3 (4.0-10.0)
[2021-02-12 11:39] LABS: LIPASE 92 U/L (73-393)
[2021-02-12 11:41] LABS: AMYLASE 46 U/L (25-115); CALCIUM 9.9 mg/dL (8.5-10.1)
[2021-02-12 11:42] LABS: ALBUMIN 3.4 g/dl (3.4-5.0); MAGNESIUM 2.4 mg/dL (1.8-2.4)
[2021-02-12 11:44] LABS: BILIRUBIN,DIRECT 0.2 mg/dL (0.0-0.2)
[2021-02-12 11:45] LABS: CREATININE 1.5 mg/dL (0.55-1.3)
[2021-02-12 11:46] LABS: BILIRUBIN,TOTAL 0.6 mg/dL (0.2-1)
[2021-02-12 17:20] VITALS: TEMP 98.5
[2021-02-12 17:23] VITALS: BP 133/73; PULSE 104
== END 2021-02-12 13:20 | disposition home or self-care (01) ==
LOC: JONCCHEMO 07:16
PROVIDERS: ATTEND Internal Medicine Hematology & Oncology
PROC: 3E02305 Introduction of Other Antineoplastic into Muscle, Percutaneous Approach (ICD-10-PCS; principal; 2021-02-12)
PROC: 3E013GC Introduction of Other Therapeutic Substance into Subcutaneous Tissue, Percutaneous Approach (ICD-10-PCS; 2021-02-12)
DX: Z51.11 Encounter for antineoplastic chemotherapy (principal); C50.411 Malignant neoplasm of upper-outer quadrant of right female breast; C79.51 Secondary malignant neoplasm of bone; E11.9 Type 2 diabetes mellitus without complications
CPT/HCPCS: 36415; 80048; 80076; 82150; 82378; 83690; 83735; 85025; 86300; 96360; 96361; 96372; 96402; J0897; J9395

== ENCOUNTER 2021-03-12 07:16 | Day surgery (SDC) | payer OTHER, BC ==
[2021-03-12] MEDS ORDERED: SODIUM CHLORIDE 500 ML IV ONE (10:00)
[2021-03-12] MEDS ORDERED: DENOSUMAB 120 MG/1.7 ML VIAL SQ ONE (10:00)
[2021-03-12 11:10] LABS: BASO % 1.1 % (0-2.0); EOS % 1.5 % (0-4.5); HEMATOCRIT 35.8 % (32.4-45.2); HEMOGLOBIN 11.6 GM/dL (10.7-15.3); LYMPH % 19.6 % (8-40); MCH 27.6 pg (25.7-33.7); MCHC 32.4 g/dl (32.0-36.0); MEAN CELL VOLUME 85.2 fl (80-96); MEAN PLT VOLUME 7.3 fl (7.5-11.1); MONO % 7.1 % (3.8-10.2); NEUT % 70.7 % (42.8-82.8); PLATELET COUNT 299 K/MM3 (134-434); RBC 4.21 M/mm3 (3.60-5.2); RDW 16.7 % (11.6-15.6)
[2021-03-12 11:44] LABS: CALCIUM 9.6 mg/dL (8.5-10.1); MAGNESIUM 2.2 mg/dL (1.8-2.4)
[2021-03-12 11:45] LABS: ALBUMIN 3.8 g/dl (3.4-5.0); BLOOD UREA NITROGEN 29.6 mg/dL (7-18)
[2021-03-12] MEDS ORDERED: SODIUM CHLORIDE 0.45% 500 ML IV ONE (11:45)
[2021-03-12 11:46] LABS: CREATININE 1.4 mg/dL (0.55-1.3)
[2021-03-12 11:47] LABS: BILIRUBIN,DIRECT 0.1 mg/dL (0.0-0.2)
[2021-03-12 11:48] LABS: TOT PROT 7.6 g/dl (6.4-8.2)
[2021-03-12 11:49] LABS: BILIRUBIN,TOTAL 0.5 mg/dL (0.2-1)
[2021-03-12 16:43] VITALS: BP 104/42; PULSE 108; TEMP 97.8
== END 2021-03-12 14:00 | disposition home or self-care (01) ==
LOC: JONCCHEMO 07:16
PROVIDERS: ATTEND Internal Medicine Hematology & Oncology
PROC: 3E013GC Introduction of Other Therapeutic Substance into Subcutaneous Tissue, Percutaneous Approach (ICD-10-PCS; principal; 2021-03-12)
PROC: 3E033GC Introduction of Other Therapeutic Substance into Peripheral Vein, Percutaneous Approach (ICD-10-PCS; 2021-03-12)
DX: C50.411 Malignant neoplasm of upper-outer quadrant of right female breast (principal); C79.51 Secondary malignant neoplasm of bone; Z76.89 Persons encountering health services in other specified circumstances
CPT/HCPCS: 36415; 80048; 80076; 82150; 82306; 82378; 83690; 83735; 85025; 86300; 96360; 96361; 96372; J0897

== ENCOUNTER 2021-04-09 06:57 | Day surgery (SDC) | payer OTHER, BC ==
[2021-04-09] MEDS ORDERED: SODIUM CHLORIDE 0.45% 500 ML IV ONE (09:00)
[2021-04-09] MEDS ORDERED: DENOSUMAB 120 MG/1.7 ML VIAL SQ ONE (10:00)
[2021-04-09 11:33] LABS: BASO % 1.1 % (0-2.0); EOS % 1.7 % (0-4.5); HEMATOCRIT 33.3 % (32.4-45.2); HEMOGLOBIN 10.8 GM/dL (10.7-15.3); LYMPH % 33.9 % (8-40); MCH 27.2 pg (25.7-33.7); MCHC 32.4 g/dl (32.0-36.0); MEAN PLT VOLUME 8.3 fl (7.5-11.1); MONO % 6.3 % (3.8-10.2); PLATELET COUNT 171 K/MM3 (134-434); RBC 3.96 M/mm3 (3.60-5.2); RDW 16.3 % (11.6-15.6); WHITE BLOOD COUNT 4.7 K/mm3 (4.0-10.0)
[2021-04-09 11:49] LABS: ALBUMIN 3.5 g/dl (3.4-5.0); MAGNESIUM 2.4 mg/dL (1.8-2.4)
[2021-04-09 11:51] LABS: BILIRUBIN,DIRECT 0.1 mg/dL (0.0-0.2)
[2021-04-09 11:52] LABS: CREATININE 1.8 mg/dL (0.55-1.3)
[2021-04-09 11:53] LABS: BILIRUBIN,TOTAL 0.4 mg/dL (0.2-1); TOT PROT 7.3 g/dl (6.4-8.2)
[2021-04-09 18:37] VITALS: TEMP 98.6
[2021-04-09 18:50] VITALS: BP 102/62; PULSE 113
== END 2021-04-09 13:00 | disposition home or self-care (01) ==
LOC: JONCCHEMO 06:57
PROVIDERS: ATTEND Internal Medicine Hematology & Oncology
PROC: 3E013GC Introduction of Other Therapeutic Substance into Subcutaneous Tissue, Percutaneous Approach (ICD-10-PCS; principal; 2021-04-09)
PROC: 3E033GC Introduction of Other Therapeutic Substance into Peripheral Vein, Percutaneous Approach (ICD-10-PCS; 2021-04-09)
DX: C50.411 Malignant neoplasm of upper-outer quadrant of right female breast (principal); C79.51 Secondary malignant neoplasm of bone; Z76.89 Persons encountering health services in other specified circumstances
CPT/HCPCS: 36415; 80048; 80076; 82378; 83735; 85025; 96360; 96361; 96372; J0897

== ENCOUNTER 2021-04-23 16:30 | Inpatient (IN) | payer OTHER, BC ==
[2021-04-23] MEDS ORDERED: LACTATED RINGERS SOLUTION 1000 ML INFUS.BAG IV ONE (18:11)
[2021-04-23] MEDS ORDERED: ACETAMINOPHEN 1000 MG/100 ML VIAL (NON FORMULARY) IVPB ONE (18:11)
[2021-04-23] MEDS ORDERED: ONDANSETRON 4 MG/2 ML VIAL IVPUSH ONE (18:11)
[2021-04-23] MEDS ORDERED: ONDANSETRON 4 MG/2 ML VIAL ONE (19:24)
[2021-04-23] MEDS ORDERED: ACETAMINOPHEN INJECTION 100 ML IVPB ONE (19:24)
[2021-04-23 19:55] LABS: BASO % 0.2 % (0-2.0); EOS % 0.1 % (0-4.5); HEMATOCRIT 35.2 % (32.4-45.2); HEMOGLOBIN 11.5 GM/dL (10.7-15.3); LYMPH % 11.3 % (8-40); MCH 26.4 pg (25.7-33.7); MCHC 32.7 g/dl (32.0-36.0); MEAN CELL VOLUME 80.6 fl (80-96); MEAN PLT VOLUME 7.6 fl (7.5-11.1); MONO % 4.9 % (3.8-10.2); NEUT % 83.5 % (42.8-82.8); PLATELET COUNT 276 10^3/uL (134-434); RBC 4.36 M/mm3 (3.60-5.2); RDW 15.8 % (11.6-15.6); WHITE BLOOD COUNT 6.4 K/mm3 (4.0-10.0)
[2021-04-23 20:00] LABS: INR 1.06 (0.83-1.09)
[2021-04-23 20:03] LABS: ACTIVATED PTT 25.3 SECONDS (25.2-36.5)
[2021-04-23 20:13] LABS: CHLORIDE 108 mmol/L (98-107); SODIUM 142 mmol/L (136-145)
[2021-04-23 20:18] LABS: BLOOD UREA NITROGEN 30.1 mg/dL (7-18)
[2021-04-23 20:20] LABS: ALBUMIN 3.5 g/dl (3.4-5.0); ANION GAP 14 MMOL/L (8-16); CALCIUM 9.7 mg/dL (8.5-10.1); CO2 19 mmol/L (21-32); GLUCOSE,RANDOM 145 mg/dL (74-106); LIPASE 51 U/L (73-393)
[2021-04-23 20:22] LABS: CREATININE 1.6 mg/dL (0.55-1.3); SGOT/AST 41 U/L (15-37); SGPT/ALT 42 U/L (13-61)
[2021-04-23 20:24] LABS: BILIRUBIN,TOTAL 0.5 mg/dL (0.2-1); TOT PROT 7.2 g/dl (6.4-8.2)
[2021-04-23 20:26] LABS: ALK PHOS 77 U/L (45-117)
[2021-04-24] MEDS ORDERED: ONDANSETRON 4 MG/2 ML VIAL IVPUSH PRN (02:08)
[2021-04-24] MEDS ORDERED: SODIUM CHLORIDE 1,000 ML IV SCH (02:15)
[2021-04-24 02:25] LABS: PH,URINE 5.5 (5.0-8.0); URINE APPEARANCE Error; URINE BILIRUBIN NEGATIVE (NEGATIVE); URINE COLOR YELLOW; URINE GLUCOSE (UA) NEGATIVE (NEGATIVE); URINE KETONE 2+ (NEGATIVE); URINE LEUK ESTERASE NEGATIVE (NEGATIVE); URINE NITRITE NEGATIVE (NEGATIVE); URINE PROTEIN TRACE (NEGATIVE); URINE UROBILINOGEN 0.2 mg/dL (0.2-1.0)
[2021-04-24] MEDS ORDERED: ACETAMINOPHEN 1000 MG/100 ML VIAL (NON FORMULARY) IVPB PRN (02:28)
[2021-04-24] MEDS: HEPARIN NA (PORCINE) 5,000 UNITS/ML 1ML VIAL SQ SCH ×3 (06:42→21:00)
[2021-04-24] MEDS: INSULIN SLIDING SCALE (NOVOLOG) 1 VIAL SQ SCH ×4 (06:43→21:00)
[2021-04-24 06:49] LABS: HEMOGLOBIN 9.9 GM/dL (10.7-15.3); MCH 26.6 pg (25.7-33.7); MCHC 32.9 g/dl (32.0-36.0); MEAN CELL VOLUME 80.7 fl (80-96); MEAN PLT VOLUME 7.6 fl (7.5-11.1); PLATELET COUNT 247 10^3/uL (134-434); RBC 3.72 M/mm3 (3.60-5.2); WHITE BLOOD COUNT 4.7 K/mm3 (4.0-10.0)
[2021-04-24 07:08] LABS: ALBUMIN 2.8 g/dl (3.4-5.0); BLOOD UREA NITROGEN 27.1 mg/dL (7-18); CALCIUM 8.6 mg/dL (8.5-10.1)
[2021-04-24 07:12] LABS: BILIRUBIN,TOTAL 0.7 mg/dL (0.2-1); CREATININE 1.4 mg/dL (0.55-1.3); PHOSPHOROUS 2.8 mg/dL (2.5-4.9); TOT PROT 5.9 g/dl (6.4-8.2)
[2021-04-24] MEDS ORDERED: PANTOPRAZOLE SODIUM 40 MG in SODIUM CHLORIDE 100 ML IVPB SCH (10:00)
[2021-04-24] MEDS: PANTOPRAZOLE SODIUM 40 MG VIAL IVPUSH SCH (10:05)
[2021-04-24 13:39] VITALS: BMI 33.6
[2021-04-24] MEDS: MELATONIN 5 MG TABLETS PO PRN (23:13)
[2021-04-25] MEDS: HEPARIN NA (PORCINE) 5,000 UNITS/ML 1ML VIAL SQ SCH ×3 (05:42→21:59)
[2021-04-25] MEDS ORDERED: ACETAMINOPHEN 1000 MG/100 ML VIAL (NON FORMULARY) IVPB PRN (05:46)
[2021-04-25] MEDS: INSULIN SLIDING SCALE (NOVOLOG) 1 VIAL SQ SCH ×4 (06:04→22:00)
[2021-04-25 09:16] LABS: BASO % 1.2 % (0-2.0); EOS % 1.2 % (0-4.5); HEMATOCRIT 29.2 % (32.4-45.2); HEMOGLOBIN 9.4 GM/dL (10.7-15.3); LYMPH % 26.7 % (8-40); MCH 26.1 pg (25.7-33.7); MCHC 32.1 g/dl (32.0-36.0); MEAN CELL VOLUME 81.1 fl (80-96); MEAN PLT VOLUME 8.2 fl (7.5-11.1); MONO % 13.3 % (3.8-10.2); NEUT % 57.6 % (42.8-82.8); PLATELET COUNT 225 10^3/uL (134-434); RDW 15.9 % (11.6-15.6)
[2021-04-25 10:08] LABS: ALBUMIN 2.7 g/dl (3.4-5.0); BILIRUBIN,TOTAL 0.4 mg/dL (0.2-1); CALCIUM 8.2 mg/dL (8.5-10.1); CREATININE 1.4 mg/dL (0.55-1.3); MAGNESIUM 2.1 mg/dL (1.8-2.4); TOT PROT 5.3 g/dl (6.4-8.2)
[2021-04-25] MEDS: PANTOPRAZOLE SODIUM 40 MG VIAL IVPUSH SCH (11:44)
[2021-04-25] MEDS: RAMIPRIL 5 MG CAPSULE PO SCH (11:44)
[2021-04-25] MEDS: MELATONIN 5 MG TABLETS PO PRN (23:48)
[2021-04-26] MEDS: INSULIN SLIDING SCALE (NOVOLOG) 1 VIAL SQ SCH ×4 (06:49→22:10)
[2021-04-26] MEDS: HEPARIN NA (PORCINE) 5,000 UNITS/ML 1ML VIAL SQ SCH ×3 (06:49→22:01)
[2021-04-26] MEDS: RAMIPRIL 5 MG CAPSULE PO SCH (10:26)
[2021-04-26] MEDS: PANTOPRAZOLE SODIUM 40 MG VIAL IVPUSH SCH (10:26)
[2021-04-26 11:52] LABS: BASO % 1.2 % (0-2.0); EOS % 1.8 % (0-4.5); HEMATOCRIT 29.8 % (32.4-45.2); HEMOGLOBIN 9.4 GM/dL (10.7-15.3); LYMPH % 26.2 % (8-40); MCH 25.9 pg (25.7-33.7); MCHC 31.6 g/dl (32.0-36.0); MEAN PLT VOLUME 7.7 fl (7.5-11.1); MONO % 11.6 % (3.8-10.2); NEUT % 59.2 % (42.8-82.8); PLATELET COUNT 215 10^3/uL (134-434); RBC 3.63 M/mm3 (3.60-5.2); RDW 15.9 % (11.6-15.6); WHITE BLOOD COUNT 3.7 K/mm3 (4.0-10.0)
[2021-04-26 12:19] LABS: BLOOD UREA NITROGEN 16.8 mg/dL (7-18)
[2021-04-26 12:20] LABS: CALCIUM 8.1 mg/dL (8.5-10.1)
[2021-04-26 12:22] LABS: CREATININE 1.2 mg/dL (0.55-1.3)
[2021-04-26 12:23] LABS: ALBUMIN 2.7 g/dl (3.4-5.0); BLOOD UREA NITROGEN 15.6 mg/dL (7-18); MAGNESIUM 2.2 mg/dL (1.8-2.4)
[2021-04-26 12:26] LABS: CREATININE 1.2 mg/dL (0.55-1.3)
[2021-04-26 12:27] LABS: BILIRUBIN,TOTAL 0.6 mg/dL (0.2-1)
[2021-04-26 12:28] LABS: TOT PROT 5.4 g/dl (6.4-8.2)
[2021-04-26] MEDS: MELATONIN 5 MG TABLETS PO PRN (23:03)
[2021-04-27] MEDS: HEPARIN NA (PORCINE) 5,000 UNITS/ML 1ML VIAL SQ SCH ×3 (06:12→21:36)
[2021-04-27] MEDS: INSULIN SLIDING SCALE (NOVOLOG) 1 VIAL SQ SCH ×4 (06:13→21:39)
[2021-04-27] MEDS: PANTOPRAZOLE SODIUM 40 MG VIAL IVPUSH SCH (09:23)
[2021-04-27] MEDS: RAMIPRIL 5 MG CAPSULE PO SCH (09:24)
[2021-04-27 10:43] LABS: BASO % 1.4 % (0-2.0); EOS % 1.8 % (0-4.5); HEMATOCRIT 29.4 % (32.4-45.2); HEMOGLOBIN 9.5 GM/dL (10.7-15.3); LYMPH % 23.9 % (8-40); MCH 26.2 pg (25.7-33.7); MCHC 32.4 g/dl (32.0-36.0); MEAN CELL VOLUME 80.8 fl (80-96); MEAN PLT VOLUME 7.4 fl (7.5-11.1); MONO % 12.9 % (3.8-10.2); PLATELET COUNT 214 10^3/uL (134-434); RBC 3.63 M/mm3 (3.60-5.2); RDW 15.7 % (11.6-15.6); WHITE BLOOD COUNT 4.3 K/mm3 (4.0-10.0)
[2021-04-27 11:19] LABS: ALBUMIN 2.9 g/dl (3.4-5.0); BILIRUBIN,TOTAL 0.4 mg/dL (0.2-1); BLOOD UREA NITROGEN 14.8 mg/dL (7-18); CALCIUM 8.2 mg/dL (8.5-10.1); CREATININE 1.2 mg/dL (0.55-1.3); MAGNESIUM 2.2 mg/dL (1.8-2.4); TOT PROT 5.6 g/dl (6.4-8.2)
[2021-04-27] MEDS ORDERED: DEXTROSE 5%-NORMAL SALINE 1,000 ML IV SCH (15:45)
[2021-04-27] MEDS ORDERED: SODIUM CHLORIDE 1,000 ML IV SCH ×2 (15:45)
[2021-04-27] MEDS: MELATONIN 5 MG TABLETS PO PRN (21:37)
[2021-04-28] MEDS: HEPARIN NA (PORCINE) 5,000 UNITS/ML 1ML VIAL SQ SCH ×3 (06:06→21:47)
[2021-04-28] MEDS: INSULIN SLIDING SCALE (NOVOLOG) 1 VIAL SQ SCH ×4 (06:07→21:48)
[2021-04-28 08:38] LABS: BASO % 1.8 % (0-2.0); EOS % 2.4 % (0-4.5); HEMATOCRIT 27.9 % (32.4-45.2); LYMPH % 25.9 % (8-40); MCH 26.2 pg (25.7-33.7); MCHC 32.4 g/dl (32.0-36.0); MEAN CELL VOLUME 80.7 fl (80-96); MEAN PLT VOLUME 7.7 fl (7.5-11.1); MONO % 14.3 % (3.8-10.2); NEUT % 55.6 % (42.8-82.8); PLATELET COUNT 202 10^3/uL (134-434); RBC 3.45 M/mm3 (3.60-5.2); RDW 16.2 % (11.6-15.6); WHITE BLOOD COUNT 4.3 K/mm3 (4.0-10.0)
[2021-04-28 09:04] LABS: CALCIUM 7.8 mg/dL (8.5-10.1)
[2021-04-28 09:05] LABS: ALBUMIN 2.7 g/dl (3.4-5.0); MAGNESIUM 2.2 mg/dL (1.8-2.4)
[2021-04-28 09:08] LABS: CREATININE 0.9 mg/dL (0.55-1.3)
[2021-04-28 09:09] LABS: BILIRUBIN,TOTAL 0.5 mg/dL (0.2-1); TOT PROT 5.4 g/dl (6.4-8.2)
[2021-04-28] MEDS: RAMIPRIL 5 MG CAPSULE PO SCH (10:25)
[2021-04-28 11:38] LABS: ANISOCYTOSIS 1+; MACROCYTOSIS 0; OVALOCYTE 1+; PLATELET ESTIMATE NORMAL
[2021-04-28] MEDS: MELATONIN 5 MG TABLETS PO PRN (21:48)
[2021-04-29] MEDS: INSULIN SLIDING SCALE (NOVOLOG) 1 VIAL SQ SCH ×4 (06:35→21:31)
[2021-04-29] MEDS: HEPARIN NA (PORCINE) 5,000 UNITS/ML 1ML VIAL SQ SCH ×3 (06:36→21:28)
[2021-04-29 08:54] LABS: BASO % 5.9 % (0-2.0); EOS % 2.5 % (0-4.5); HEMATOCRIT 27.8 % (32.4-45.2); LYMPH % 19.9 % (8-40); MCH 26.2 pg (25.7-33.7); MCHC 32.5 g/dl (32.0-36.0); MEAN CELL VOLUME 80.6 fl (80-96); MONO % 12.6 % (3.8-10.2); NEUT % 59.1 % (42.8-82.8); PLATELET COUNT 209 10^3/uL (134-434); RBC 3.45 M/mm3 (3.60-5.2); RDW 15.9 % (11.6-15.6); WHITE BLOOD COUNT 3.9 K/mm3 (4.0-10.0)
[2021-04-29 09:11] LABS: ALBUMIN 2.6 g/dl (3.4-5.0); BLOOD UREA NITROGEN 7.9 mg/dL (7-18); CALCIUM 7.8 mg/dL (8.5-10.1); MAGNESIUM 2.2 mg/dL (1.8-2.4)
[2021-04-29 09:15] LABS: CREATININE 0.9 mg/dL (0.55-1.3)
[2021-04-29 09:16] LABS: BILIRUBIN,TOTAL 0.5 mg/dL (0.2-1); TOT PROT 5.2 g/dl (6.4-8.2)
[2021-04-29] MEDS: RAMIPRIL 5 MG CAPSULE PO SCH (10:02)
[2021-04-29 11:43] LABS: ANISOCYTOSIS 1+; MACROCYTOSIS 0; OVALOCYTE 1+; PLATELET ESTIMATE NORMAL; TEAR DROP CELLS 1+
[2021-04-29] MEDS: POLYETHYLENE GLYCOL (HEALTHYLAX) 3350 17 GM PACKET PO SCH ×2 (15:03→21:29)
[2021-04-29] MEDS: MELATONIN 5 MG TABLETS PO PRN (21:31)
[2021-04-30] MEDS: POLYETHYLENE GLYCOL (HEALTHYLAX) 3350 17 GM PACKET PO SCH ×2 (05:59→13:48)
[2021-04-30] MEDS: HEPARIN NA (PORCINE) 5,000 UNITS/ML 1ML VIAL SQ SCH ×2 (06:01→13:48)
[2021-04-30] MEDS: INSULIN SLIDING SCALE (NOVOLOG) 1 VIAL SQ SCH ×3 (06:03→17:49)
[2021-04-30] MEDS: RAMIPRIL 5 MG CAPSULE PO SCH (09:24)
[2021-04-30 09:38] LABS: BASO % 1.7 % (0-2.0); EOS % 2.1 % (0-4.5); HEMATOCRIT 32.8 % (32.4-45.2); HEMOGLOBIN 10.4 GM/dL (10.7-15.3); LYMPH % 33.1 % (8-40); MCHC 31.6 g/dl (32.0-36.0); MEAN PLT VOLUME 7.9 fl (7.5-11.1); MONO % 14.1 % (3.8-10.2); PLATELET COUNT 298 10^3/uL (134-434); RDW 16.5 % (11.6-15.6); WHITE BLOOD COUNT 6.1 K/mm3 (4.0-10.0)
[2021-04-30 09:51] LABS: CALCIUM 8.5 mg/dL (8.5-10.1)
[2021-04-30 09:52] LABS: BLOOD UREA NITROGEN 8.3 mg/dL (7-18)
[2021-04-30 09:55] LABS: CREATININE 0.9 mg/dL (0.55-1.3); MAGNESIUM 2.3 mg/dL (1.8-2.4)
[2021-04-30 09:56] LABS: BILIRUBIN,TOTAL 0.4 mg/dL (0.2-1); TOT PROT 5.8 g/dl (6.4-8.2)
[2021-04-30 12:15] LABS: ANISOCYTOSIS 0; HELMET CELLS 0; HOWELL-JOLLY BODIES 0; MACROCYTOSIS 0; OVALOCYTE 0; PLATELET ESTIMATE NORMAL; ROULEAU 0; SICKELED CELLS 0; TARGET CELLS 0; TEAR DROP CELLS 0; TOXIC GRANULATION 0
[2021-04-30] MEDS ORDERED: metroNIDAZOLE 250 MG TABLET PO SCH (14:00)
[2021-04-30 15:03] VITALS: BP 106/47; PULSE 104; TEMP 98.6
== END 2021-04-30 17:17 | disposition home or self-care (01) | DRG 392 ==
LOC: JER 16:30 → JERBED 04-24 00:26 → J5S 04-24 06:27
PROVIDERS: ADMIT Internal Medicine; ATTEND Nurse Practitioner Acute Care
DX: K52.9 Noninfective gastroenteritis and colitis, unspecified (principal); C79.51 Secondary malignant neoplasm of bone; N17.9 Acute kidney failure, unspecified; R10.32 Left lower quadrant pain; E78.5 Hyperlipidemia, unspecified; I12.9 Hypertensive chronic kidney disease with stage 1 through stage 4 chronic kidney disease, or unspecified chronic kidney disease; E11.22 Type 2 diabetes mellitus with diabetic chronic kidney disease; N18.9 Chronic kidney disease, unspecified; C50.919 Malignant neoplasm of unspecified site of unspecified female breast; E11.610 Type 2 diabetes mellitus with diabetic neuropathic arthropathy; K57.90 Diverticulosis of intestine, part unspecified, without perforation or abscess without bleeding; E86.0 Dehydration; K59.09 Other constipation; Z87.19 Personal history of other diseases of the digestive system; Z86.010 Personal history of colon polyps; Z88.0 Allergy status to penicillin
CPT/HCPCS: 36415; 71045-TC-FY; 74019-TC-FY; 74176-TC; 80048; 80053; 81003; 82962; 83690; 83735; 84100; 84484; 85025; 85027; 85610; 85730; 86140; 93005; 93010; 97116-GP; 97161-GP; 99285-25; C9803; J0131; J1644; U0003; U0005

== ENCOUNTER 2021-05-07 07:12 | Day surgery (SDC) | payer OTHER, BC ==
[2021-05-07] MEDS ORDERED: DENOSUMAB 120 MG/1.7 ML VIAL SQ ONE (10:00)
[2021-05-07] MEDS ORDERED: SODIUM CHLORIDE 0.45% 500 ML IV ONE (10:00)
[2021-05-07 12:10] LABS: EOS % 0.7 % (0-4.5); HEMOGLOBIN 10.4 GM/dL (10.7-15.3); LYMPH % 10.6 % (8-40); MCH 25.9 pg (25.7-33.7); MCHC 31.6 g/dl (32.0-36.0); MEAN CELL VOLUME 82.1 fl (80-96); MEAN PLT VOLUME 7.5 fl (7.5-11.1); MONO % 10.9 % (3.8-10.2); NEUT % 76.8 % (42.8-82.8); PLATELET COUNT 365 10^3/uL (134-434); RBC 4.02 M/mm3 (3.60-5.2); RDW 17.5 % (11.6-15.6); WHITE BLOOD COUNT 7.9 K/mm3 (4.0-10.0)
[2021-05-07 12:34] LABS: ALBUMIN 3.1 g/dl (3.4-5.0); BLOOD UREA NITROGEN 14.7 mg/dL (7-18); MAGNESIUM 1.8 mg/dL (1.8-2.4)
[2021-05-07 12:36] LABS: BILIRUBIN,DIRECT 0.2 mg/dL (0.0-0.2); CREATININE 1.2 mg/dL (0.55-1.3)
[2021-05-07 12:38] LABS: BILIRUBIN,TOTAL 0.5 mg/dL (0.2-1); TOT PROT 6.4 g/dl (6.4-8.2)
[2021-05-07 12:39] LABS: CALCIUM 10.1 mg/dL (8.5-10.1)
[2021-05-07 16:34] VITALS: BP 139/83; PULSE 114; TEMP 98.9
== END 2021-05-07 12:30 | disposition home or self-care (01) ==
LOC: JONCCHEMO 07:12
PROVIDERS: ATTEND Internal Medicine Hematology & Oncology
PROC: 3E013GC Introduction of Other Therapeutic Substance into Subcutaneous Tissue, Percutaneous Approach (ICD-10-PCS; principal; 2021-05-07)
DX: C50.411 Malignant neoplasm of upper-outer quadrant of right female breast (principal); C79.51 Secondary malignant neoplasm of bone; Z76.89 Persons encountering health services in other specified circumstances
CPT/HCPCS: 36415; 71046-TC-FY; 80048; 80076; 82378; 83735; 85025; 96372; J0897

== ENCOUNTER 2021-06-04 08:41 | Day surgery (SDC) | payer OTHER, BC ==
[2021-06-04] MEDS ORDERED: SODIUM CHLORIDE 0.45% 500 ML IV ONE (09:00)
[2021-06-04] MEDS ORDERED: DENOSUMAB 120 MG/1.7 ML VIAL SQ ONE (10:00)
[2021-06-04 12:23] LABS: EOS % 2.6 % (0-4.5); HEMATOCRIT 33.3 % (32.4-45.2); HEMOGLOBIN 10.8 GM/dL (10.7-15.3); LYMPH % 31.8 % (8-40); MCHC 32.4 g/dl (32.0-36.0); MEAN CELL VOLUME 83.3 fl (80-96); MONO % 7.3 % (3.8-10.2); NEUT % 57.3 % (42.8-82.8); PLATELET COUNT 217 10^3/uL (134-434); RDW 18.9 % (11.6-15.6); WHITE BLOOD COUNT 5.4 K/mm3 (4.0-10.0)
[2021-06-04 12:45] LABS: CALCIUM 8.8 mg/dL (8.5-10.1)
[2021-06-04 12:46] LABS: ALBUMIN 3.5 g/dl (3.4-5.0); BLOOD UREA NITROGEN 25.7 mg/dL (7-18); MAGNESIUM 2.5 mg/dL (1.8-2.4)
[2021-06-04 12:48] LABS: BILIRUBIN,DIRECT 0.2 mg/dL (0.0-0.2)
[2021-06-04 12:49] LABS: CREATININE 1.7 mg/dL (0.55-1.3)
[2021-06-04 12:50] LABS: BILIRUBIN,TOTAL 0.5 mg/dL (0.2-1); TOT PROT 7.3 g/dl (6.4-8.2)
[2021-06-04 14:56] VITALS: TEMP 98.5
[2021-06-04 15:01] VITALS: BP 126/54; PULSE 101
== END 2021-06-04 14:15 | disposition home or self-care (01) ==
LOC: JONCCHEMO 08:41
PROVIDERS: ATTEND Internal Medicine Hematology & Oncology
PROC: 3E013GC Introduction of Other Therapeutic Substance into Subcutaneous Tissue, Percutaneous Approach (ICD-10-PCS; principal; 2021-06-04)
PROC: 3E0337Z Introduction of Electrolytic and Water Balance Substance into Peripheral Vein, Percutaneous Approach (ICD-10-PCS; 2021-06-04)
DX: C50.411 Malignant neoplasm of upper-outer quadrant of right female breast (principal); C79.51 Secondary malignant neoplasm of bone; Z76.89 Persons encountering health services in other specified circumstances
CPT/HCPCS: 36415; 80048; 80076; 82306; 83036; 83735; 84439; 84443; 85025; 96360; 96361; 96372; J0897

== ENCOUNTER 2021-07-02 07:26 | Day surgery (SDC) | payer OTHER, BC ==
[2021-07-02] MEDS ORDERED: SODIUM CHLORIDE 0.45% 500 ML IV ONE (10:00)
[2021-07-02] MEDS ORDERED: DENOSUMAB 120 MG/1.7 ML VIAL SQ ONE (10:00)
[2021-07-02 14:49] LABS: BASO % 0.7 % (0-2.0); EOS % 1.4 % (0-4.5); HEMATOCRIT 29.8 % (32.4-45.2); HEMOGLOBIN 9.8 GM/dL (10.7-15.3); LYMPH % 21.6 % (8-40); MCH 26.5 pg (25.7-33.7); MEAN CELL VOLUME 80.4 fl (80-96); MEAN PLT VOLUME 7.6 fl (7.5-11.1); NEUT % 65.3 % (42.8-82.8); PLATELET COUNT 176 10^3/uL (134-434); RBC 3.71 M/mm3 (3.60-5.2); WHITE BLOOD COUNT 3.4 K/mm3 (4.0-10.0)
[2021-07-02 15:12] LABS: CALCIUM 8.3 mg/dL (8.5-10.1)
[2021-07-02 15:13] LABS: BLOOD UREA NITROGEN 17.6 mg/dL (7-18); MAGNESIUM 2.4 mg/dL (1.8-2.4)
[2021-07-02 15:15] LABS: BILIRUBIN,DIRECT 0.1 mg/dL (0.0-0.2)
[2021-07-02 15:17] LABS: BILIRUBIN,TOTAL 0.5 mg/dL (0.2-1)
[2021-07-02 15:18] LABS: TOT PROT 6.5 g/dl (6.4-8.2)
[2021-07-02 16:01] VITALS: TEMP 98.9
[2021-07-02 16:02] VITALS: BP 143/56; PULSE 74
== END 2021-07-02 14:05 | disposition home or self-care (01) ==
LOC: JONCCHEMO 07:26
PROVIDERS: ATTEND Internal Medicine Hematology & Oncology
PROC: 3E0337Z Introduction of Electrolytic and Water Balance Substance into Peripheral Vein, Percutaneous Approach (ICD-10-PCS; principal; 2021-07-02)
PROC: 3E013GC Introduction of Other Therapeutic Substance into Subcutaneous Tissue, Percutaneous Approach (ICD-10-PCS; 2021-07-02)
DX: Z76.89 Persons encountering health services in other specified circumstances (principal); C50.411 Malignant neoplasm of upper-outer quadrant of right female breast; C79.51 Secondary malignant neoplasm of bone
CPT/HCPCS: 36415; 80048; 80076; 82378; 83735; 85025; 86300; 96360; 96361; 96372; J0897

== ENCOUNTER 2021-08-12 06:56 | Day surgery (SDC) | payer OTHER, BC ==
[~2021-08-12 06:56] MED LIST changes: -FULVESTRANT 250 MG/5 ML SYRINGE IM ONE; +SODIUM CHLORIDE 0.45% 500 ML IV ONE
[2021-08-12] MEDS ORDERED: DENOSUMAB 120 MG/1.7 ML VIAL SQ ONE (10:00)
[2021-08-12] MEDS ORDERED: SODIUM CHLORIDE 0.45% 500 ML IV ONE (10:00)
[2021-08-12 11:16] LABS: BASO % 0.8 % (0-2.0); EOS % 1.6 % (0-4.5); HEMATOCRIT 30.5 % (32.4-45.2); HEMOGLOBIN 9.9 GM/dL (10.7-15.3); LYMPH % 15.6 % (8-40); MCH 25.7 pg (25.7-33.7); MCHC 32.4 g/dl (32.0-36.0); MEAN CELL VOLUME 79.4 fl (80-96); MEAN PLT VOLUME 7.9 fl (7.5-11.1); MONO % 6.4 % (3.8-10.2); NEUT % 75.6 % (42.8-82.8); PLATELET COUNT 267 10^3/uL (134-434); RBC 3.84 M/mm3 (3.60-5.2); RDW 17.3 % (11.6-15.6); WHITE BLOOD COUNT 5.7 K/mm3 (4.0-10.0)
[2021-08-12 11:35] LABS: ALBUMIN 3.1 g/dl (3.4-5.0); BLOOD UREA NITROGEN 21.6 mg/dL (7-18); CALCIUM 8.6 mg/dL (8.5-10.1); MAGNESIUM 2.3 mg/dL (1.8-2.4)
[2021-08-12 11:38] LABS: BILIRUBIN,DIRECT 0.1 mg/dL (0.0-0.2); CREATININE 1.5 mg/dL (0.55-1.3)
[2021-08-12 11:40] LABS: BILIRUBIN,TOTAL 0.4 mg/dL (0.2-1); TOT PROT 7.2 g/dl (6.4-8.2)
[2021-08-12 16:08] VITALS: TEMP 98.6
[2021-08-12 16:09] VITALS: BP 131/39; PULSE 67
== END 2021-08-12 13:40 | disposition home or self-care (01) ==
LOC: JONCCHEMO 06:56
PROVIDERS: ATTEND Internal Medicine Hematology & Oncology
PROC: 3E013GC Introduction of Other Therapeutic Substance into Subcutaneous Tissue, Percutaneous Approach (ICD-10-PCS; principal; 2021-08-12)
PROC: 3E0337Z Introduction of Electrolytic and Water Balance Substance into Peripheral Vein, Percutaneous Approach (ICD-10-PCS; 2021-08-12)
DX: C50.411 Malignant neoplasm of upper-outer quadrant of right female breast (principal); C79.51 Secondary malignant neoplasm of bone; Z17.0 Estrogen receptor positive status [ER+]
CPT/HCPCS: 36415; 80048; 80076; 82378; 83735; 85025; 86300; 96360; 96361; 96372; J0897

== ENCOUNTER 2021-09-09 07:06 | Day surgery (SDC) | payer OTHER, BC ==
[2021-09-09] MEDS ORDERED: SODIUM CHLORIDE 0.45% 500 ML IV ONE (09:00)
[2021-09-09] MEDS ORDERED: DENOSUMAB 120 MG/1.7 ML VIAL SQ ONE (10:00)
[2021-09-09 13:04] LABS: BASO % 0.8 % (0-2.0); EOS % 0.5 % (0-4.5); HEMATOCRIT 28.3 % (32.4-45.2); HEMOGLOBIN 9.3 GM/dL (10.7-15.3); LYMPH % 9.9 % (8-40); MCH 25.2 pg (25.7-33.7); MCHC 32.7 g/dl (32.0-36.0); MEAN CELL VOLUME 76.9 fl (80-96); MEAN PLT VOLUME 7.1 fl (7.5-11.1); MONO % 8.4 % (3.8-10.2); NEUT % 80.4 % (42.8-82.8); PLATELET COUNT 330 10^3/uL (134-434); RBC 3.68 M/mm3 (3.60-5.2)
[2021-09-09 13:21] LABS: ALBUMIN 3.1 g/dl (3.4-5.0); CALCIUM 9.9 mg/dL (8.5-10.1)
[2021-09-09 13:22] LABS: BLOOD UREA NITROGEN 19.9 mg/dL (7-18); MAGNESIUM 2.3 mg/dL (1.8-2.4)
[2021-09-09 13:24] LABS: BILIRUBIN,DIRECT 0.2 mg/dL (0.0-0.2)
[2021-09-09 13:25] LABS: CREATININE 1.5 mg/dL (0.55-1.3)
[2021-09-09 13:26] LABS: BILIRUBIN,TOTAL 0.8 mg/dL (0.2-1); TOT PROT 6.8 g/dl (6.4-8.2)
[2021-09-09 18:15] VITALS: BP 135/45; PULSE 77; TEMP 97.9
== END 2021-09-09 12:20 | disposition home or self-care (01) ==
LOC: JONCCHEMO 07:06
PROVIDERS: ATTEND Internal Medicine Hematology & Oncology
PROC: 3E013GC Introduction of Other Therapeutic Substance into Subcutaneous Tissue, Percutaneous Approach (ICD-10-PCS; principal; 2021-09-09)
PROC: 3E0337Z Introduction of Electrolytic and Water Balance Substance into Peripheral Vein, Percutaneous Approach (ICD-10-PCS; 2021-09-09)
DX: C50.411 Malignant neoplasm of upper-outer quadrant of right female breast (principal); C79.51 Secondary malignant neoplasm of bone; Z17.0 Estrogen receptor positive status [ER+]; Z76.89 Persons encountering health services in other specified circumstances
CPT/HCPCS: 36415; 80048; 80076; 82378; 83735; 85025; 96360; 96361; 96372; J0897

== ENCOUNTER 2021-10-08 07:19 | Day surgery (SDC) | payer OTHER, BC ==
[2021-10-08] MEDS ORDERED: SODIUM CHLORIDE 500 ML IV ONE (09:00)
[2021-10-08] MEDS ORDERED: SODIUM CHLORIDE 0.45% 500 ML IV ONE (09:15)
[2021-10-08] MEDS ORDERED: DENOSUMAB 120 MG/1.7 ML VIAL SQ ONE (10:00)
[2021-10-08 11:54] LABS: BASO % 0.8 % (0-2.0); EOS % 1.1 % (0-4.5); HEMATOCRIT 34.1 % (32.4-45.2); HEMOGLOBIN 10.9 GM/dL (10.7-15.3); LYMPH % 18.6 % (8-40); MCH 27.8 pg (25.7-33.7); MEAN CELL VOLUME 86.7 fl (80-96); MEAN PLT VOLUME 7.7 fl (7.5-11.1); MONO % 8.6 % (3.8-10.2); NEUT % 70.9 % (42.8-82.8); PLATELET COUNT 198 10^3/uL (134-434); RBC 3.93 M/mm3 (3.60-5.2); RDW 27.3 % (11.6-15.6); WHITE BLOOD COUNT 5.2 K/mm3 (4.0-10.0)
[2021-10-08 12:45] LABS: ANISOCYTOSIS 3+; MACROCYTOSIS 0; OVALOCYTE 2+; PLATELET ESTIMATE NORMAL
[2021-10-08 15:39] VITALS: TEMP 97.6
[2021-10-08 15:40] VITALS: BP 123/45; PULSE 85
== END 2021-10-08 14:15 | disposition home or self-care (01) ==
LOC: JONCCHEMO 07:19
PROVIDERS: ATTEND Internal Medicine Hematology & Oncology
PROC: 3E0337Z Introduction of Electrolytic and Water Balance Substance into Peripheral Vein, Percutaneous Approach (ICD-10-PCS; principal; 2021-10-08)
PROC: 3E013GC Introduction of Other Therapeutic Substance into Subcutaneous Tissue, Percutaneous Approach (ICD-10-PCS; 2021-10-08)
DX: C50.411 Malignant neoplasm of upper-outer quadrant of right female breast (principal); C79.51 Secondary malignant neoplasm of bone; Z17.0 Estrogen receptor positive status [ER+]; Z76.89 Persons encountering health services in other specified circumstances
CPT/HCPCS: 36415; 82378; 85025; 96360; 96361; 96372; J0897

== ENCOUNTER 2021-11-05 07:31 | Day surgery (SDC) | payer OTHER, BC ==
[2021-11-05] MEDS ORDERED: DENOSUMAB 120 MG/1.7 ML VIAL SQ ONE (11:00)
[2021-11-05] MEDS ORDERED: SODIUM CHLORIDE 0.45% 500 ML IV ONE (11:00)
[2021-11-05 13:39] LABS: EOS % 0.9 % (0-4.5); HEMOGLOBIN 12.2 GM/dL (10.7-15.3); MCH 28.5 pg (25.7-33.7); MCHC 31.2 g/dl (32.0-36.0); MEAN CELL VOLUME 91.3 fl (80-96); MEAN PLT VOLUME 7.8 fl (7.5-11.1); MONO % 7.8 % (3.8-10.2); NEUT % 75.3 % (42.8-82.8); PLATELET COUNT 251 10^3/uL (134-434); RBC 4.27 M/mm3 (3.60-5.2); RDW 24.2 % (11.6-15.6); WHITE BLOOD COUNT 5.7 K/mm3 (4.0-10.0)
[2021-11-05 14:06] LABS: ANISOCYTOSIS 1+; MACROCYTOSIS 0; PLATELET ESTIMATE NORMAL
[2021-11-05 15:07] LABS: BLOOD UREA NITROGEN 29.4 mg/dL (7-18); CALCIUM 9.7 mg/dL (8.5-10.1)
[2021-11-05 15:08] LABS: ALBUMIN 3.6 g/dl (3.4-5.0); MAGNESIUM 2.3 mg/dL (1.8-2.4)
[2021-11-05 15:11] LABS: BILIRUBIN,DIRECT 0.2 mg/dL (0.0-0.2); CREATININE 1.4 mg/dL (0.55-1.3)
[2021-11-05 15:12] LABS: BILIRUBIN,TOTAL 0.7 mg/dL (0.2-1); TOT PROT 7.1 g/dl (6.4-8.2)
[2021-11-05 16:25] VITALS: BP 127/37; PULSE 66; TEMP 97.5
== END 2021-11-05 15:35 | disposition home or self-care (01) ==
LOC: JONCCHEMO 07:31
PROVIDERS: ATTEND Internal Medicine Hematology & Oncology
PROC: 3E01305 Introduction of Other Antineoplastic into Subcutaneous Tissue, Percutaneous Approach (ICD-10-PCS; principal; 2021-11-05)
PROC: 3E0337Z Introduction of Electrolytic and Water Balance Substance into Peripheral Vein, Percutaneous Approach (ICD-10-PCS; 2021-11-05)
DX: C50.411 Malignant neoplasm of upper-outer quadrant of right female breast (principal); C79.51 Secondary malignant neoplasm of bone; Z17.0 Estrogen receptor positive status [ER+]; Z76.89 Persons encountering health services in other specified circumstances
CPT/HCPCS: 36415; 80048; 80076; 82378; 83735; 85025; 86300; 96360; 96361; 96372; J0897

== ENCOUNTER 2021-12-02 08:24 | Day surgery (SDC) | payer OTHER, BC ==
[2021-12-02] MEDS ORDERED: SODIUM CHLORIDE 0.45% 500 ML IV ONE (10:00)
[2021-12-02] MEDS ORDERED: DENOSUMAB 120 MG/1.7 ML VIAL SQ ONE (10:00)
[2021-12-02 12:44] LABS: BASO % 0.9 % (0-2.0); EOS % 0.9 % (0-4.5); HEMATOCRIT 39.7 % (32.4-45.2); HEMOGLOBIN 12.8 GM/dL (10.7-15.3); LYMPH % 19.5 % (8-40); MCH 29.9 pg (25.7-33.7); MCHC 32.4 g/dl (32.0-36.0); MEAN CELL VOLUME 92.5 fl (80-96); MEAN PLT VOLUME 7.7 fl (7.5-11.1); MONO % 8.9 % (3.8-10.2); NEUT % 69.8 % (42.8-82.8); PLATELET COUNT 151 10^3/uL (134-434); RBC 4.29 M/mm3 (3.60-5.2); RDW 22.3 % (11.6-15.6); WHITE BLOOD COUNT 4.2 K/mm3 (4.0-10.0)
[2021-12-02 13:09] LABS: BLOOD UREA NITROGEN 29.8 mg/dL (7-18); CALCIUM 10.4 mg/dL (8.5-10.1); MAGNESIUM 2.3 mg/dL (1.8-2.4)
[2021-12-02 13:12] LABS: BILIRUBIN,DIRECT 0.2 mg/dL (0.0-0.2); CREATININE 1.5 mg/dL (0.55-1.3)
[2021-12-02 13:14] LABS: BILIRUBIN,TOTAL 1.1 mg/dL (0.2-1); TOT PROT 7.4 g/dl (6.4-8.2)
[2021-12-02 16:47] VITALS: BP 115/75; PULSE 78; TEMP 98.2
[2021-12-04 08:06] LABS: CARCINOEMBRYONIC ANTIGEN 10.5 ng/mL (0.0-4.7)
== END 2021-12-02 13:30 | disposition home or self-care (01) ==
LOC: JONCCHEMO 08:24
PROVIDERS: ATTEND Internal Medicine Hematology & Oncology
PROC: 3E013GC Introduction of Other Therapeutic Substance into Subcutaneous Tissue, Percutaneous Approach (ICD-10-PCS; principal; 2021-12-02)
DX: C50.411 Malignant neoplasm of upper-outer quadrant of right female breast (principal); C79.51 Secondary malignant neoplasm of bone; Z17.0 Estrogen receptor positive status [ER+]; Z76.89 Persons encountering health services in other specified circumstances
CPT/HCPCS: 36415; 80053; 80076; 82378; 83735; 85025; 86300; 96372; J0897

== ENCOUNTER 2022-03-02 08:54 | Day surgery (SDC) | payer OTHER, BC ==
[2022-03-02] MEDS ORDERED: DENOSUMAB 120 MG/1.7 ML VIAL SQ ONE (10:00)
[2022-03-02] MEDS ORDERED: SODIUM CHLORIDE 0.45% 500 ML IV ONE (10:00)
[2022-03-02 12:02] LABS: BASO % 0.7 % (0-2.0); EOS % 1.8 % (0-4.5); HEMATOCRIT 34.7 % (32.4-45.2); HEMOGLOBIN 11.5 GM/dL (10.7-15.3); LYMPH % 13.8 % (8-40); MCH 32.4 pg (25.7-33.7); MCHC 33.1 g/dl (32.0-36.0); MEAN PLT VOLUME 7.3 fl (7.5-11.1); MONO % 8.3 % (3.8-10.2); NEUT % 75.4 % (42.8-82.8); PLATELET COUNT 199 10^3/uL (134-434); RBC 3.54 M/mm3 (3.60-5.2); RDW 18.7 % (11.6-15.6); WHITE BLOOD COUNT 4.1 K/mm3 (4.0-10.0)
[2022-03-02 12:30] LABS: ALBUMIN 3.5 g/dl (3.4-5.0); BLOOD UREA NITROGEN 31.8 mg/dL (7-18); CALCIUM 9.6 mg/dL (8.5-10.1); MAGNESIUM 2.3 mg/dL (1.8-2.4)
[2022-03-02 12:33] LABS: BILIRUBIN,DIRECT 0.3 mg/dL (0.0-0.2); CREATININE 1.3 mg/dL (0.55-1.3)
[2022-03-02 12:35] LABS: BILIRUBIN,TOTAL 1.1 mg/dL (0.2-1); TOT PROT 6.6 g/dl (6.4-8.2)
[2022-03-02 16:36] VITALS: BP 122/45; PULSE 73; TEMP 98.2
== END 2022-03-02 14:30 | disposition home or self-care (01) ==
LOC: JONCCHEMO 08:54
PROVIDERS: ATTEND Internal Medicine Hematology & Oncology
PROC: 3E013GC Introduction of Other Therapeutic Substance into Subcutaneous Tissue, Percutaneous Approach (ICD-10-PCS; principal; 2022-03-02)
DX: C50.411 Malignant neoplasm of upper-outer quadrant of right female breast (principal); C79.51 Secondary malignant neoplasm of bone; Z17.0 Estrogen receptor positive status [ER+]; Z76.89 Persons encountering health services in other specified circumstances
CPT/HCPCS: 36415; 80048; 80076; 82378; 83735; 85025; 86300; 96372; J0897

== ENCOUNTER 2022-03-26 12:20 | Emergency (ER) | payer OTHER, BC ==
[2022-03-26 12:49] VITALS: BP 120/69; PULSE 76; TEMP 98.1; BMI 28.3
[2022-03-26] MEDS ORDERED: DIPHTH,PERTUSS(ACELL),TET 0.5 ML DISP.SYRIN IM ONE ×2 (13:49→14:03)
== END 2022-03-26 14:10 | disposition home or self-care (01) ==
LOC: JERFT 12:20 → JER 12:20 → JERFT 14:10
PROC: 3E0234Z Introduction of Serum, Toxoid and Vaccine into Muscle, Percutaneous Approach (ICD-10-PCS; principal; 2022-03-26)
DX: S61.402A Unspecified open wound of left hand, initial encounter (principal); W55.03XA Scratched by cat, initial encounter
CPT/HCPCS: 90471; 90715; 99283-25

== ENCOUNTER 2022-06-01 06:25 | Day surgery (SDC) | payer OTHER, BC ==
[2022-06-01] MEDS ORDERED: SODIUM CHLORIDE 0.45% 500 ML IV ONE (10:00)
[2022-06-01] MEDS ORDERED: DENOSUMAB 120 MG/1.7 ML VIAL SQ ONE (10:00)
[2022-06-01 11:25] LABS: BASO % 0.7 % (0-2.0); HEMATOCRIT 36.4 % (32.4-45.2); HEMOGLOBIN 12.1 GM/dL (10.7-15.3); LYMPH % 13.2 % (8-40); MCH 31.4 pg (25.7-33.7); MCHC 33.2 g/dl (32.0-36.0); MEAN CELL VOLUME 94.7 fl (80-96); MEAN PLT VOLUME 7.2 fl (7.5-11.1); MONO % 8.3 % (3.8-10.2); NEUT % 76.8 % (42.8-82.8); PLATELET COUNT 182 10^3/uL (134-434); RBC 3.85 M/mm3 (3.60-5.2); RDW 18.5 % (11.6-15.6); WHITE BLOOD COUNT 4.1 K/mm3 (4.0-10.0)
[2022-06-01 11:44] LABS: CALCIUM 9.1 mg/dL (8.5-10.1)
[2022-06-01 11:45] LABS: BLOOD UREA NITROGEN 26.1 mg/dL (7-18); MAGNESIUM 2.3 mg/dL (1.8-2.4)
[2022-06-01 11:48] LABS: CREATININE 1.4 mg/dL (0.55-1.3)
[2022-06-01 12:43] LABS: BILIRUBIN,TOTAL 1.7 mg/dL (0.2-1); TOT PROT 6.6 g/dl (6.4-8.2)
[2022-06-01 13:51] LABS: ALBUMIN 3.6 g/dl (3.4-5.0); BILIRUBIN,DIRECT 0.3 mg/dL (0.0-0.2)
[2022-06-01 15:12] VITALS: BP 113/49; PULSE 71; RESP 20; TEMP 98
== END 2022-06-01 12:35 | disposition home or self-care (01) ==
LOC: JONCCHEMO 06:25
PROVIDERS: ATTEND Internal Medicine Hematology & Oncology
PROC: 3E0337Z Introduction of Electrolytic and Water Balance Substance into Peripheral Vein, Percutaneous Approach (ICD-10-PCS; principal; 2022-06-01)
DX: C50.411 Malignant neoplasm of upper-outer quadrant of right female breast (principal); C79.51 Secondary malignant neoplasm of bone; Z17.0 Estrogen receptor positive status [ER+]
CPT/HCPCS: 36415; 80048; 80076; 82378; 83735; 85025; 86300; 86705; 96360; 96372; J0897

== ENCOUNTER 2022-09-07 11:25 | Day surgery (SDC) | payer OTHER, BC ==
[2022-09-07 14:10] VITALS: BP 109/48; PULSE 94; RESP 18; TEMP 97.7
== END 2022-09-07 14:05 | disposition home or self-care (01) ==
LOC: JONCCHEMO 11:25
PROVIDERS: ATTEND Internal Medicine Hematology & Oncology
PROC: 3E0337Z Introduction of Electrolytic and Water Balance Substance into Peripheral Vein, Percutaneous Approach (ICD-10-PCS; principal; 2022-09-07)
PROC: 3E01305 Introduction of Other Antineoplastic into Subcutaneous Tissue, Percutaneous Approach (ICD-10-PCS; 2022-09-07)
DX: C50.411 Malignant neoplasm of upper-outer quadrant of right female breast (principal); C79.51 Secondary malignant neoplasm of bone; Z17.0 Estrogen receptor positive status [ER+]
CPT/HCPCS: 96360; 96361; 96372; J0897

== ENCOUNTER 2023-02-22 04:30 | Day surgery (SDC) | payer OTHER, BC ==
[2023-02-19 11:50] VITALS: BMI 22.3
[2023-02-22] MEDS ORDERED: FENTANYL CITRATE/PF 50 MCG/ML VIAL ONE (09:37)
[2023-02-22] MEDS ORDERED: MIDAZOLAM HCL 2 MG/2 ML SINGLE DOSE VIAL ONE (09:37)
[2023-02-22 09:48] LABS: INR 1.09 (0.83-1.09); PROTHROMBIN TIME (PATIENT) 12.6 SEC (9.7-13.0)
[2023-02-22] MEDS ORDERED: SODIUM CHLORIDE 500 ML IV SCH (10:30)
[2023-02-22] MEDS ORDERED: FENTANYL CITRATE/PF 50 MCG/ML VIAL IVPUSH ONE (10:40)
[2023-02-22] MEDS ORDERED: MIDAZOLAM HCL 2 MG/2 ML SINGLE DOSE VIAL IVPUSH ONE (12:15)
[2023-02-22 13:10] VITALS: RESP 18
[2023-02-22 13:11] VITALS: BP 130/60; PULSE 82; TEMP 98
== END 2023-02-22 12:45 | disposition home or self-care (01) ==
LOC: JRADIR 04:30
PROVIDERS: ATTEND Internal Medicine Hematology & Oncology
PROC: 0JH63WZ Insertion of Totally Implantable Vascular Access Device into Chest Subcutaneous Tissue and Fascia, Percutaneous Approach (ICD-10-PCS; principal; 2023-02-22)
DX: C50.911 Malignant neoplasm of unspecified site of right female breast (principal)
CPT/HCPCS: 36561; C1788; 36415; 77001-TC-FY; 85610

== ENCOUNTER 2023-02-22 12:36 | Day surgery (SDC) | payer OTHER, BC ==
[2023-02-22 08:51] LABS: EOS % 2.3 % (0-4.5); HEMATOCRIT 33.7 % (32.4-45.2); HEMOGLOBIN 11.6 GM/dL (10.7-15.3); LYMPH % 21.9 % (8-40); MCH 31.8 pg (25.7-33.7); MCHC 34.4 g/dl (32.0-36.0); MEAN CELL VOLUME 92.4 fl (80-96); MEAN PLT VOLUME 7.8 fl (7.5-11.1); MONO % 8.2 % (3.8-10.2); NEUT % 66.6 % (42.8-82.8); PLATELET COUNT 222 10^3/uL (134-434); RBC 3.65 M/mm3 (3.60-5.2); RDW 15.8 % (11.6-15.6); WHITE BLOOD COUNT 4.5 K/mm3 (4.0-10.0)
[2023-02-22 09:03] LABS: ALBUMIN 3.2 g/dl (3.4-5.0); BLOOD UREA NITROGEN 25.8 mg/dL (7-18); MAGNESIUM 1.9 mg/dL (1.8-2.4)
[2023-02-22 09:06] LABS: BILIRUBIN,DIRECT 0.1 mg/dL (0.0-0.2); CREATININE 1.2 mg/dL (0.55-1.3)
[2023-02-22 09:08] LABS: BILIRUBIN,TOTAL 0.7 mg/dL (0.2-1); TOT PROT 6.7 g/dl (6.4-8.2)
[~2023-02-22 12:36] MED LIST changes: +DEXAMETHASONE SODIUM PHOSPHATE 6 MG, ONDANSETRON INJECTION 8 MG in SODIUM CHLORIDE 100 ML IVPB ONE; +PACLITAXEL PROTEIN BOUND IVPB ONE; -SODIUM CHLORIDE 0.45% 500 ML IV ONE; +SODIUM CHLORIDE 250 ML IV ONE; +SODIUM CHLORIDE IVPB ONE
[2023-02-22 18:16] VITALS: BP 126/45; PULSE 109; RESP 20; TEMP 98.2
[2023-02-22] MEDS ORDERED: PORTA CATH FLUSH 10 ML IVPUSH PRN (18:16)
== END 2023-02-22 17:15 | disposition home or self-care (01) ==
LOC: JONCCHEMO 12:36
PROVIDERS: ATTEND Internal Medicine Hematology & Oncology
PROC: 3E04305 Introduction of Other Antineoplastic into Central Vein, Percutaneous Approach (ICD-10-PCS; principal; 2023-02-22)
PROC: 3E013GC Introduction of Other Therapeutic Substance into Subcutaneous Tissue, Percutaneous Approach (ICD-10-PCS; 2023-02-22)
DX: Z51.11 Encounter for antineoplastic chemotherapy (principal); C50.411 Malignant neoplasm of upper-outer quadrant of right female breast; Z17.0 Estrogen receptor positive status [ER+]; C79.51 Secondary malignant neoplasm of bone
CPT/HCPCS: 36415; 80048; 80076; 83735; 85025; 96367; 96372; 96413; J0897; J9264

== ENCOUNTER 2023-03-01 11:45 | Day surgery (SDC) | payer OTHER, BC ==
[~2023-03-01 11:45] MED LIST changes: -DENOSUMAB 120 MG/1.7 ML VIAL SQ ONE
[2023-03-01 12:55] LABS: EOS % 2.5 % (0-4.5); HEMOGLOBIN 10.3 GM/dL (10.7-15.3); LYMPH % 18.7 % (8-40); MCH 30.8 pg (25.7-33.7); MCHC 33.2 g/dl (32.0-36.0); MEAN CELL VOLUME 92.7 fl (80-96); MEAN PLT VOLUME 7.5 fl (7.5-11.1); MONO % 6.8 % (3.8-10.2); PLATELET COUNT 199 10^3/uL (134-434); RBC 3.34 M/mm3 (3.60-5.2); RDW 16.1 % (11.6-15.6); WHITE BLOOD COUNT 3.5 K/mm3 (4.0-10.0)
[2023-03-01 13:10] LABS: POTASSIUM 4.7 mmol/L (3.5-5.1)
[2023-03-01 13:13] LABS: BLOOD UREA NITROGEN 17.8 mg/dL (7-18); CALCIUM 9.2 mg/dL (8.5-10.1)
[2023-03-01 13:18] LABS: BILIRUBIN,TOTAL 0.6 mg/dL (0.2-1); TOT PROT 6.2 g/dl (6.4-8.2)
[2023-03-01 16:28] VITALS: TEMP 97.6
[2023-03-01 16:34] VITALS: BP 132/67; PULSE 93; RESP 20
[2023-03-01] MEDS ORDERED: PORTA CATH FLUSH 10 ML IVPUSH PRN (16:34)
== END 2023-03-01 15:15 | disposition home or self-care (01) ==
LOC: JONCCHEMO 11:45
PROVIDERS: ATTEND Internal Medicine Hematology & Oncology
DX: Z51.11 Encounter for antineoplastic chemotherapy (principal); C50.411 Malignant neoplasm of upper-outer quadrant of right female breast; Z17.0 Estrogen receptor positive status [ER+]
CPT/HCPCS: 36415; 80053; 83735; 85025; 96367; 96413; J9264

== ENCOUNTER 2023-03-23 11:24 | Day surgery (SDC) | payer OTHER, BC ==
[~2023-03-23 11:24] MED LIST changes: -PACLITAXEL PROTEIN BOUND IVPB ONE; +PACLITAXEL PROTEIN-BOUND 160 MG in SODIUM CHLORIDE 32 ML IVPB ONE; -SODIUM CHLORIDE IVPB ONE
[2023-03-23 17:28] VITALS: TEMP 97.5
[2023-03-23] MEDS ORDERED: PORTA CATH FLUSH 10 ML IVPUSH PRN (17:45)
[2023-03-23 17:46] VITALS: BP 150/55; PULSE 74; RESP 18
== END 2023-03-23 14:15 | disposition home or self-care (01) ==
LOC: J7W 11:24 → JONCCHEMO 11:24
PROVIDERS: ATTEND Internal Medicine Hematology & Oncology
DX: Z51.11 Encounter for antineoplastic chemotherapy (principal); C50.411 Malignant neoplasm of upper-outer quadrant of right female breast; Z17.0 Estrogen receptor positive status [ER+]
CPT/HCPCS: 96367; 96413; J9264

== ENCOUNTER 2023-03-31 09:01 | Day surgery (SDC) | payer OTHER, BC ==
[~2023-03-31 09:01] MED LIST changes: -DEXAMETHASONE SODIUM PHOSPHATE 6 MG, ONDANSETRON INJECTION 8 MG in SODIUM CHLORIDE 100 ML IVPB ONE; -PACLITAXEL PROTEIN-BOUND 160 MG in SODIUM CHLORIDE 32 ML IVPB ONE
[2023-03-31] MEDS ORDERED: DEXAMETHASONE SODIUM PHOSPHATE 6 MG, ONDANSETRON INJECTION 8 MG in SODIUM CHLORIDE 100 ML IVPB ONE (09:30)
[2023-03-31] MEDS ORDERED: PACLITAXEL PROTEIN-BOUND 160 MG in SODIUM CHLORIDE 32 ML IVPB ONE (10:00)
[2023-03-31 15:13] VITALS: BP 117/52; PULSE 91; RESP 20; TEMP 97.4
[2023-03-31] MEDS ORDERED: PORTA CATH FLUSH 10 ML IVPUSH PRN (15:29)
== END 2023-03-31 12:00 | disposition home or self-care (01) ==
LOC: JONCCHEMO 09:01 → J7W 09:03 → JONCCHEMO 12:00
PROVIDERS: ATTEND Internal Medicine Hematology & Oncology
DX: Z51.11 Encounter for antineoplastic chemotherapy (principal); C50.411 Malignant neoplasm of upper-outer quadrant of right female breast; C79.51 Secondary malignant neoplasm of bone; Z17.0 Estrogen receptor positive status [ER+]
CPT/HCPCS: 96367; 96413; J9264

== ENCOUNTER 2023-04-06 11:23 | Day surgery (SDC) | payer OTHER, BC ==
[~2023-04-06 11:23] MED LIST changes: +DEXAMETHASONE SODIUM PHOSPHATE 6 MG, ONDANSETRON INJECTION 8 MG in SODIUM CHLORIDE 100 ML IVPB ONE; +PACLITAXEL PROTEIN BOUND IVPB ONE; +SODIUM CHLORIDE IVPB ONE
[2023-04-06 16:17] VITALS: TEMP 97.6
[2023-04-06 16:26] VITALS: BP 139/53; PULSE 68; RESP 16
[2023-04-06] MEDS ORDERED: PORTA CATH FLUSH 10 ML IVPUSH PRN (16:26)
== END 2023-04-06 13:20 | disposition home or self-care (01) ==
LOC: JONCCHEMO 11:23 → J7W 11:24 → JONCCHEMO 13:20
PROVIDERS: ATTEND Internal Medicine Hematology & Oncology
DX: Z51.11 Encounter for antineoplastic chemotherapy (principal); C50.411 Malignant neoplasm of upper-outer quadrant of right female breast
CPT/HCPCS: 96367; 96413; J9264

== ENCOUNTER 2023-04-21 09:14 | Day surgery (SDC) | payer OTHER, BC ==
[2023-04-21] MEDS ORDERED: SODIUM CHLORIDE 250 ML IV ONE (10:00)
[2023-04-21] MEDS ORDERED: GRANISETRON HCL/PF 1 MG in SODIUM CHLORIDE 50 ML IVPB ONE (10:00)
[2023-04-21] MEDS ORDERED: DEXAMETHASONE SODIUM PHOSPHATE 6 MG in DEXTROSE 5%-WATER - 50 ML IVPB ONE (10:00)
[2023-04-21] MEDS ORDERED: PACLITAXEL PROTEIN-BOUND 160 MG in SODIUM CHLORIDE 32 ML IVPB ONE (10:30)
[2023-04-21 16:23] VITALS: BP 121/48; PULSE 102; RESP 20; TEMP 97.5
[2023-04-21] MEDS ORDERED: PORTA CATH FLUSH 10 ML IVPUSH PRN (16:23)
== END 2023-04-21 12:30 | disposition home or self-care (01) ==
LOC: JONCCHEMO 09:14 → J7W 09:16 → JONCCHEMO 12:30
PROVIDERS: ATTEND Internal Medicine Hematology & Oncology
DX: Z51.11 Encounter for antineoplastic chemotherapy (principal); C50.411 Malignant neoplasm of upper-outer quadrant of right female breast
CPT/HCPCS: 96375; 96413; J9264

== ENCOUNTER 2023-04-27 08:55 | Day surgery (SDC) | payer OTHER, BC ==
[2023-04-27] MEDS ORDERED: SODIUM CHLORIDE 250 ML IV ONE (09:00)
[2023-04-27] MEDS ORDERED: GRANISETRON HCL IVPB ONE (10:00)
[2023-04-27] MEDS ORDERED: SODIUM CHLORIDE IVPB ONE ×2 (10:00→10:30)
[2023-04-27] MEDS ORDERED: DEXAMETHASONE SODIUM PHOSPHATE IVPB ONE (10:00)
[2023-04-27] MEDS ORDERED: PACLITAXEL PROTEIN BOUND IVPB ONE (10:30)
[2023-04-27 16:36] VITALS: BP 106/44; PULSE 91; RESP 20; TEMP 98.1
[2023-04-27] MEDS ORDERED: PORTA CATH FLUSH 10 ML IVPUSH PRN (16:36)
== END 2023-04-27 12:45 | disposition home or self-care (01) ==
LOC: JONCCHEMO 08:55 → J7W 09:09 → JONCCHEMO 12:45
PROVIDERS: ATTEND Internal Medicine Hematology & Oncology
DX: Z51.11 Encounter for antineoplastic chemotherapy (principal); C50.411 Malignant neoplasm of upper-outer quadrant of right female breast
CPT/HCPCS: J9264

== ENCOUNTER 2023-05-03 11:41 | Day surgery (SDC) | payer OTHER, BC ==
[~2023-05-03 11:41] MED LIST changes: -DEXAMETHASONE SODIUM PHOSPHATE 6 MG, ONDANSETRON INJECTION 8 MG in SODIUM CHLORIDE 100 ML IVPB ONE; +DEXAMETHASONE SODIUM PHOSPHATE IVPB ONE; +GRANISETRON HCL IVPB ONE; -PACLITAXEL PROTEIN BOUND IVPB ONE; +PACLITAXEL PROTEIN-BOUND 160 MG in SODIUM CHLORIDE 32 ML IVPB ONE
[2023-05-03 12:05] LABS: BASO % 0.7 % (0-2.0); EOS % 1.3 % (0-4.5); HEMATOCRIT 32.3 % (32.4-45.2); HEMOGLOBIN 10.4 GM/dL (10.7-15.3); LYMPH % 24.9 % (8-40); MCHC 32.3 g/dl (32.0-36.0); MEAN CELL VOLUME 86.8 fl (80-96); MEAN PLT VOLUME 7.8 fl (7.5-11.1); NEUT % 67.1 % (42.8-82.8); PLATELET COUNT 244 10^3/uL (134-434); RBC 3.73 M/mm3 (3.60-5.2); RDW 17.6 % (11.6-15.6); WHITE BLOOD COUNT 2.5 K/mm3 (4.0-10.0)
[2023-05-03 12:23] LABS: POTASSIUM 4.4 mmol/L (3.5-5.1)
[2023-05-03 12:25] LABS: CALCIUM 9.5 mg/dL (8.5-10.1)
[2023-05-03 12:26] LABS: ALBUMIN 3.3 g/dl (3.4-5.0); BLOOD UREA NITROGEN 20.2 mg/dL (7-18); MAGNESIUM 2.2 mg/dL (1.8-2.4)
[2023-05-03 12:29] LABS: CREATININE 1.4 mg/dL (0.55-1.3)
[2023-05-03 12:30] LABS: BILIRUBIN,TOTAL 0.7 mg/dL (0.2-1); TOT PROT 6.5 g/dl (6.4-8.2)
[2023-05-03 17:00] VITALS: RESP 18; TEMP 98.1
[2023-05-03 17:14] VITALS: BP 126/75; PULSE 58
[2023-05-03] MEDS ORDERED: PORTA CATH FLUSH 10 ML IVPUSH PRN (17:14)
== END 2023-05-03 14:40 | disposition home or self-care (01) ==
LOC: J7W 11:41 → JONCCHEMO 11:41
PROVIDERS: ATTEND Internal Medicine Hematology & Oncology
DX: Z51.11 Encounter for antineoplastic chemotherapy (principal); C50.411 Malignant neoplasm of upper-outer quadrant of right female breast; Z17.0 Estrogen receptor positive status [ER+]
CPT/HCPCS: 36415; 80053; 83735; 85025; 96367; 96413; J9264

== ENCOUNTER 2023-05-25 10:23 | Day surgery (SDC) | payer OTHER, BC ==
[~2023-05-25 10:23] MED LIST changes: +PACLITAXEL PROTEIN BOUND IVPB ONE; -PACLITAXEL PROTEIN-BOUND 160 MG in SODIUM CHLORIDE 32 ML IVPB ONE
[2023-05-25 15:22] VITALS: BP 112/40; PULSE 87; RESP 20; TEMP 98.2
[2023-05-25] MEDS ORDERED: PORTA CATH FLUSH 10 ML IVPUSH PRN (15:22)
== END 2023-05-25 13:20 | disposition home or self-care (01) ==
LOC: JONCCHEMO 10:23 → J7W 10:24 → JONCCHEMO 13:20
PROVIDERS: ATTEND Internal Medicine Hematology & Oncology
DX: Z51.11 Encounter for antineoplastic chemotherapy (principal); C50.411 Malignant neoplasm of upper-outer quadrant of right female breast; Z17.0 Estrogen receptor positive status [ER+]
CPT/HCPCS: 96413; 96417; J9264

== ENCOUNTER 2023-06-01 10:03 | Day surgery (SDC) | payer OTHER, BC ==
[~2023-06-01 10:03] MED LIST changes: +DEXAMETHASONE SODIUM PHOSPHATE 6 MG in DEXTROSE 5%-WATER - 50 ML IVPB ONE; -DEXAMETHASONE SODIUM PHOSPHATE IVPB ONE; -GRANISETRON HCL IVPB ONE; +GRANISETRON HCL/PF 1 MG in SODIUM CHLORIDE 50 ML IVPB ONE; -PACLITAXEL PROTEIN BOUND IVPB ONE; -SODIUM CHLORIDE IVPB ONE
[2023-06-01] MEDS ORDERED: PACLITAXEL PROTEIN BOUND IVPB ONE (10:30)
[2023-06-01] MEDS ORDERED: SODIUM CHLORIDE IVPB ONE (10:30)
[2023-06-01 16:14] VITALS: BP 122/54; PULSE 95; RESP 20; TEMP 98.1
[2023-06-01] MEDS ORDERED: PORTA CATH FLUSH 10 ML IVPUSH PRN (16:14)
== END 2023-06-01 13:00 | disposition home or self-care (01) ==
LOC: JONCCHEMO 10:03 → J7W 10:05 → JONCCHEMO 13:00
PROVIDERS: ATTEND Internal Medicine Hematology & Oncology
DX: Z51.11 Encounter for antineoplastic chemotherapy (principal); C50.411 Malignant neoplasm of upper-outer quadrant of right female breast; Z17.0 Estrogen receptor positive status [ER+]
CPT/HCPCS: 96366; 96413; J9264

== ENCOUNTER 2023-06-15 10:24 | Day surgery (SDC) | payer OTHER, BC ==
[~2023-06-15 10:24] MED LIST changes: -DEXAMETHASONE SODIUM PHOSPHATE 6 MG in DEXTROSE 5%-WATER - 50 ML IVPB ONE; +DEXAMETHASONE SODIUM PHOSPHATE IVPB ONE; +GRANISETRON HCL IVPB ONE; -GRANISETRON HCL/PF 1 MG in SODIUM CHLORIDE 50 ML IVPB ONE; +SODIUM CHLORIDE IVPB ONE
[2023-06-15] MEDS ORDERED: PACLITAXEL PROTEIN BOUND IVPB ONE (10:30)
[2023-06-15] MEDS ORDERED: SODIUM CHLORIDE IVPB ONE (10:30)
[2023-06-15 16:41] VITALS: RESP 18; TEMP 98.5
[2023-06-15 16:47] VITALS: BP 125/59; PULSE 69
[2023-06-15] MEDS ORDERED: PORTA CATH FLUSH 10 ML IVPUSH PRN (16:47)
== END 2023-06-15 12:45 | disposition home or self-care (01) ==
LOC: JONCCHEMO 10:24 → J7W 10:25 → JONCCHEMO 12:45
PROVIDERS: ATTEND Internal Medicine Hematology & Oncology
DX: Z51.11 Encounter for antineoplastic chemotherapy (principal); C50.911 Malignant neoplasm of unspecified site of right female breast
CPT/HCPCS: 96367; 96413; J9264

== ENCOUNTER 2023-06-29 10:05 | Day surgery (SDC) | payer OTHER, BC ==
[~2023-06-29 10:05] MED LIST changes: +PACLITAXEL PROTEIN BOUND IVPB ONE
[2023-06-29 10:55] LABS: BASO % 1.1 % (0-2.0); EOS % 5.3 % (0-4.5); HEMATOCRIT 31.5 % (32.4-45.2); HEMOGLOBIN 10.1 GM/dL (10.7-15.3); LYMPH % 15.9 % (8-40); MCH 27.3 pg (25.7-33.7); MCHC 32.2 g/dl (32.0-36.0); MEAN CELL VOLUME 84.7 fl (80-96); MEAN PLT VOLUME 7.1 fl (7.5-11.1); MONO % 13.5 % (3.8-10.2); NEUT % 64.2 % (42.8-82.8); PLATELET COUNT 296 10^3/uL (134-434); RBC 3.72 M/mm3 (3.60-5.2); RDW 18.8 % (11.6-15.6); WHITE BLOOD COUNT 4.2 K/mm3 (4.0-10.0)
[2023-06-29 11:42] LABS: POTASSIUM 4.3 mmol/L (3.5-5.1)
[2023-06-29 11:57] LABS: CALCIUM 9.2 mg/dL (8.5-10.1)
[2023-06-29 11:59] LABS: BLOOD UREA NITROGEN 18.5 mg/dL (7-18); MAGNESIUM 2.2 mg/dL (1.8-2.4)
[2023-06-29 12:01] LABS: CREATININE 1.2 mg/dL (0.55-1.3)
[2023-06-29 12:02] LABS: BILIRUBIN,TOTAL 0.6 mg/dL (0.2-1)
[2023-06-29 12:03] LABS: TOT PROT 6.3 g/dl (6.4-8.2)
[2023-06-29 17:11] VITALS: TEMP 98.6
[2023-06-29 17:15] VITALS: BP 153/65; PULSE 75; RESP 20
[2023-06-29] MEDS ORDERED: PORTA CATH FLUSH 10 ML IVPUSH PRN (17:15)
[2023-06-30 08:08] LABS: CARCINOEMBRYONIC ANTIGEN 5.3 ng/mL (0.0-4.7)
== END 2023-06-29 14:30 | disposition home or self-care (01) ==
LOC: JONCCHEMO 10:05 → J7W 10:05 → JONCCHEMO 14:30
PROVIDERS: ATTEND Internal Medicine Hematology & Oncology
DX: Z51.11 Encounter for antineoplastic chemotherapy (principal); C50.911 Malignant neoplasm of unspecified site of right female breast
CPT/HCPCS: 36415; 80053; 82306; 82378; 83735; 85025; 86300; 96367; 96413; J9264

== ENCOUNTER 2023-07-07 10:03 | Day surgery (SDC) | payer OTHER, BC ==
[2023-07-07 16:20] VITALS: TEMP 98
[2023-07-07] MEDS ORDERED: PORTA CATH FLUSH 10 ML IVPUSH PRN (16:20)
[2023-07-07 17:01] VITALS: BP 94/46; PULSE 97; RESP 20
== END 2023-07-07 13:30 | disposition home or self-care (01) ==
LOC: JONCCHEMO 10:03 → J7W 10:04 → JONCCHEMO 13:30
PROVIDERS: ATTEND Internal Medicine Hematology & Oncology
DX: Z51.11 Encounter for antineoplastic chemotherapy (principal); C50.411 Malignant neoplasm of upper-outer quadrant of right female breast; Z17.0 Estrogen receptor positive status [ER+]
CPT/HCPCS: 96367; 96413; J9264

== ENCOUNTER 2023-08-11 10:48 | Day surgery (SDC) | payer OTHER, BC ==
[~2023-08-11 10:48] MED LIST changes: +DEXAMETHASONE SODIUM PHOSPHATE 6 MG in DEXTROSE 5%-WATER - 50 ML IVPB ONE; -DEXAMETHASONE SODIUM PHOSPHATE IVPB ONE; -GRANISETRON HCL IVPB ONE; +GRANISETRON HCL/PF 1 MG in SODIUM CHLORIDE 50 ML IVPB ONE; -PACLITAXEL PROTEIN BOUND IVPB ONE; +PACLITAXEL PROTEIN-BOUND 155 MG in SODIUM CHLORIDE 31 ML IVPB ONE; -SODIUM CHLORIDE IVPB ONE
[2023-08-11 11:52] LABS: BASO % 2.6 % (0-2.0); EOS % 5.2 % (0-4.5); HEMATOCRIT 31.4 % (32.4-45.2); HEMOGLOBIN 9.8 GM/dL (10.7-15.3); LYMPH % 21.8 % (8-40); MCH 26.7 pg (25.7-33.7); MCHC 31.2 g/dl (32.0-36.0); MEAN CELL VOLUME 85.4 fl (80-96); MONO % 15.4 % (3.8-10.2); PLATELET COUNT 315 10^3/uL (134-434); RBC 3.68 M/mm3 (3.60-5.2); RDW 20.6 % (11.6-15.6); WHITE BLOOD COUNT 3.1 K/mm3 (4.0-10.0)
[2023-08-11 12:13] LABS: POTASSIUM 3.9 mmol/L (3.5-5.1)
[2023-08-11 12:14] LABS: CALCIUM 8.8 mg/dL (8.5-10.1)
[2023-08-11 12:15] LABS: ALBUMIN 2.9 g/dl (3.4-5.0); MAGNESIUM 2.3 mg/dL (1.8-2.4)
[2023-08-11 12:16] LABS: BLOOD UREA NITROGEN 16.8 mg/dL (7-18)
[2023-08-11 12:19] LABS: BILIRUBIN,TOTAL 0.6 mg/dL (0.2-1); CREATININE 1.1 mg/dL (0.55-1.3)
[2023-08-11 12:20] LABS: ANISOCYTOSIS 2+; MACROCYTOSIS 1+
[2023-08-11 18:15] VITALS: BP 131/45; PULSE 66; RESP 18; TEMP 97.9
[2023-08-11] MEDS ORDERED: PORTA CATH FLUSH 10 ML IVPUSH PRN (18:15)
== END 2023-08-11 14:30 | disposition home or self-care (01) ==
LOC: JONCCHEMO 10:48 → J7W 10:54 → JONCCHEMO 14:30
PROVIDERS: ATTEND Internal Medicine Hematology & Oncology
DX: Z51.11 Encounter for antineoplastic chemotherapy (principal); C50.411 Malignant neoplasm of upper-outer quadrant of right female breast; C79.51 Secondary malignant neoplasm of bone; Z17.0 Estrogen receptor positive status [ER+]
CPT/HCPCS: 36415; 80053; 83735; 85025; 96375; 96413; J9264

== ENCOUNTER 2023-08-18 10:54 | Day surgery (SDC) | payer OTHER, BC ==
[2023-08-18 17:09] VITALS: BP 140/48; PULSE 73; RESP 18; TEMP 98
[2023-08-18] MEDS ORDERED: PORTA CATH FLUSH 10 ML IVPUSH PRN (17:09)
== END 2023-08-18 14:20 | disposition home or self-care (01) ==
LOC: JONCCHEMO 10:54 → J7W 10:59 → JONCCHEMO 14:20
PROVIDERS: ATTEND Internal Medicine Hematology & Oncology
DX: Z51.11 Encounter for antineoplastic chemotherapy (principal); C50.411 Malignant neoplasm of upper-outer quadrant of right female breast; C79.51 Secondary malignant neoplasm of bone; Z17.0 Estrogen receptor positive status [ER+]
CPT/HCPCS: 96367; 96375; 96413; J9264

== ENCOUNTER 2023-08-25 10:42 | Day surgery (SDC) | payer OTHER, BC ==
[2023-08-25 16:02] VITALS: RESP 18; TEMP 98.4
[2023-08-25 16:06] VITALS: BP 134/39; PULSE 59
[2023-08-25] MEDS ORDERED: PORTA CATH FLUSH 10 ML IVPUSH PRN (16:06)
== END 2023-08-25 13:30 | disposition home or self-care (01) ==
LOC: JONCCHEMO 10:42 → J7W 10:45 → JONCCHEMO 13:30
PROVIDERS: ATTEND Internal Medicine Hematology & Oncology
DX: Z51.11 Encounter for antineoplastic chemotherapy (principal); C50.411 Malignant neoplasm of upper-outer quadrant of right female breast; C79.51 Secondary malignant neoplasm of bone; Z17.0 Estrogen receptor positive status [ER+]
CPT/HCPCS: 96375; 96413; J9264

== ENCOUNTER 2023-09-15 11:47 | Day surgery (SDC) | payer OTHER, BC ==
[~2023-09-15 11:47] MED LIST changes: +DENOSUMAB 120 MG/1.7 ML VIAL SQ ONE; +PACLITAXEL PROTEIN BOUND IVPB ONE; +SODIUM CHLORIDE IVPB ONE
[2023-09-15] MEDS ORDERED: PORTA CATH FLUSH 10 ML IVPUSH PRN (16:11)
[2023-09-15 16:12] VITALS: BP 116/51; PULSE 75; RESP 18; TEMP 98
== END 2023-09-15 15:00 | disposition home or self-care (01) ==
LOC: JONCCHEMO 11:47 → J7W 11:48 → JONCCHEMO 15:00
PROVIDERS: ATTEND Internal Medicine Hematology & Oncology
DX: Z51.11 Encounter for antineoplastic chemotherapy (principal); C50.411 Malignant neoplasm of upper-outer quadrant of right female breast; C79.51 Secondary malignant neoplasm of bone; Z17.0 Estrogen receptor positive status [ER+]
CPT/HCPCS: 96375; 96413; J9264

== ENCOUNTER 2023-09-22 11:28 | Day surgery (SDC) | payer OTHER, BC ==
[~2023-09-22 11:28] MED LIST changes: -DENOSUMAB 120 MG/1.7 ML VIAL SQ ONE; -PACLITAXEL PROTEIN-BOUND 155 MG in SODIUM CHLORIDE 31 ML IVPB ONE
[2023-09-22 15:45] VITALS: BP 121/44; PULSE 70; RESP 18; TEMP 97.6
[2023-09-22] MEDS ORDERED: PORTA CATH FLUSH 10 ML IVPUSH PRN (15:45)
== END 2023-09-22 13:50 | disposition home or self-care (01) ==
LOC: JONCCHEMO 11:28 → J7W 11:29 → JONCCHEMO 13:50
PROVIDERS: ATTEND Internal Medicine Hematology & Oncology
DX: Z51.11 Encounter for antineoplastic chemotherapy (principal); C50.411 Malignant neoplasm of upper-outer quadrant of right female breast; Z17.0 Estrogen receptor positive status [ER+]
CPT/HCPCS: 96375; 96413; J9264

== ENCOUNTER 2023-10-12 11:00 | Day surgery (SDC) | payer OTHER, BC ==
[2023-10-12 11:55] LABS: HEMATOCRIT 35.7 % (32.4-45.2); HEMOGLOBIN 11.4 GM/dL (10.7-15.3); MCH 27.1 pg (25.7-33.7); MCHC 31.9 g/dl (32.0-36.0); MEAN PLT VOLUME 7.6 fl (7.5-11.1); PLATELET COUNT 219 10^3/uL (134-434); WHITE BLOOD COUNT 4.5 K/mm3 (4.0-10.0)
[2023-10-12 12:15] LABS: ALBUMIN 3.2 g/dl (3.4-5.0); BLOOD UREA NITROGEN 26.9 mg/dL (7-18); CALCIUM 8.9 mg/dL (8.5-10.1)
[2023-10-12 12:18] LABS: CREATININE 1.2 mg/dL (0.55-1.3)
[2023-10-12 12:19] LABS: ANISOCYTOSIS 1+; MACROCYTOSIS 0
[2023-10-12 12:20] LABS: BILIRUBIN,TOTAL 0.6 mg/dL (0.2-1); TOT PROT 6.2 g/dl (6.4-8.2)
[2023-10-12 14:45] VITALS: BP 139/44; PULSE 62; RESP 18; TEMP 97.5
[2023-10-12] MEDS ORDERED: PORTA CATH FLUSH 10 ML IVPUSH PRN (14:45)
== END 2023-10-12 14:05 | disposition home or self-care (01) ==
LOC: JONCCHEMO 11:00 → J7W 11:01 → JONCCHEMO 14:05
PROVIDERS: ATTEND Internal Medicine Hematology & Oncology
DX: Z51.11 Encounter for antineoplastic chemotherapy (principal); C50.411 Malignant neoplasm of upper-outer quadrant of right female breast; Z17.0 Estrogen receptor positive status [ER+]
CPT/HCPCS: 36415; 80053; 83735; 85025; 96375; 96413; J9264

== ENCOUNTER 2023-10-20 10:55 | Day surgery (SDC) | payer OTHER, BC ==
[~2023-10-20 10:55] MED LIST changes: -DEXAMETHASONE SODIUM PHOSPHATE 6 MG in DEXTROSE 5%-WATER - 50 ML IVPB ONE; +DEXAMETHASONE SODIUM PHOSPHATE 6 MG in SODIUM CHLORIDE 50 ML IVPB ONE
[2023-10-20 11:30] VITALS: RESP 18; TEMP 97.8
[2023-10-20] MEDS ORDERED: PORTA CATH FLUSH 10 ML IVPUSH PRN (13:15)
[2023-10-20 17:26] VITALS: BP 153/48; PULSE 62
== END 2023-10-20 13:30 | disposition home or self-care (01) ==
LOC: JONCCHEMO 10:55 → J7W 10:55 → JONCCHEMO 13:30
PROVIDERS: ATTEND Internal Medicine Hematology & Oncology
DX: Z51.11 Encounter for antineoplastic chemotherapy (principal); C50.411 Malignant neoplasm of upper-outer quadrant of right female breast; Z17.0 Estrogen receptor positive status [ER+]
CPT/HCPCS: 96375; 96413; J9264

== ENCOUNTER 2023-11-03 11:17 | Day surgery (SDC) | payer OTHER, BC ==
[2023-11-03 14:47] VITALS: RESP 20; TEMP 97.5
[2023-11-03 14:58] VITALS: BP 136/60; PULSE 69
[2023-11-03] MEDS ORDERED: PORTA CATH FLUSH 10 ML IVPUSH PRN (14:58)
== END 2023-11-03 14:20 | disposition home or self-care (01) ==
LOC: JONCCHEMO 11:17 → J7W 11:18 → JONCCHEMO 14:20
PROVIDERS: ATTEND Internal Medicine Hematology & Oncology
DX: Z51.11 Encounter for antineoplastic chemotherapy (principal); C50.411 Malignant neoplasm of upper-outer quadrant of right female breast; Z17.0 Estrogen receptor positive status [ER+]
CPT/HCPCS: 96375; 96413; J9264

== ENCOUNTER 2023-11-10 11:35 | Day surgery (SDC) | payer OTHER, BC ==
[2023-11-10 15:11] VITALS: TEMP 98.1
[2023-11-10 15:16] VITALS: BP 148/58; PULSE 69; RESP 18
[2023-11-10] MEDS ORDERED: PORTA CATH FLUSH 10 ML IVPUSH PRN (15:16)
== END 2023-11-10 14:30 | disposition home or self-care (01) ==
LOC: JONCCHEMO 11:35 → J7W 11:36 → JONCCHEMO 14:30
PROVIDERS: ATTEND Internal Medicine Hematology & Oncology
DX: Z51.11 Encounter for antineoplastic chemotherapy (principal); C50.411 Malignant neoplasm of upper-outer quadrant of right female breast; Z17.0 Estrogen receptor positive status [ER+]
CPT/HCPCS: 96375; 96413; J9264

== ENCOUNTER 2023-11-18 11:29 | Day surgery (SDC) | payer OTHER, BC ==
[2023-11-18 18:10] VITALS: BP 117/52; PULSE 86; RESP 20; TEMP 98.4
[2023-11-18] MEDS ORDERED: PORTA CATH FLUSH 10 ML IVPUSH PRN (18:10)
== END 2023-11-18 14:00 | disposition home or self-care (01) ==
LOC: JONCCHEMO 11:29 → J7W 11:30 → JONCCHEMO 14:00
PROVIDERS: ATTEND Internal Medicine Hematology & Oncology
DX: Z51.11 Encounter for antineoplastic chemotherapy (principal); C50.411 Malignant neoplasm of upper-outer quadrant of right female breast
CPT/HCPCS: 96367; 96375; 96413; J9264

== ENCOUNTER 2023-12-01 11:01 | Day surgery (SDC) | payer OTHER, BC ==
[2023-12-01 17:14] VITALS: RESP 18
[2023-12-01 17:18] VITALS: PULSE 64
[2023-12-01] MEDS ORDERED: PORTA CATH FLUSH 10 ML IVPUSH PRN (17:18)
[2023-12-02 08:27] VITALS: TEMP 97
[2023-12-02 08:30] VITALS: BP 104/44
== END 2023-12-01 13:15 | disposition home or self-care (01) ==
LOC: JONCCHEMO 11:01 → J7W 11:01 → JONCCHEMO 13:15
PROVIDERS: ATTEND Internal Medicine Hematology & Oncology
DX: Z51.11 Encounter for antineoplastic chemotherapy (principal); C50.411 Malignant neoplasm of upper-outer quadrant of right female breast
CPT/HCPCS: 96375; 96413; J9264

== ENCOUNTER 2023-12-09 10:53 | Day surgery (SDC) | payer OTHER, BC ==
[2023-12-09] MEDS: SODIUM CHLORIDE 250 ML IV ONE (11:17)
[2023-12-09] MEDS: DEXAMETHASONE SODIUM PHOSPHATE 6 MG in DEXTROSE 5%-WATER - 50 ML IVPB ONE (11:17)
[2023-12-09] MEDS: GRANISETRON HCL/PF 1 MG in SODIUM CHLORIDE 50 ML IVPB ONE (11:40)
[2023-12-09] MEDS: PACLITAXEL PROTEIN BOUND IVPB ONE (12:02)
[2023-12-09] MEDS: SODIUM CHLORIDE IVPB ONE (12:02)
[2023-12-09] MEDS: PORTA CATH FLUSH 10 ML IVPUSH PRN (13:10)
[2023-12-09 16:52] VITALS: TEMP 98.3
[2023-12-09 17:14] VITALS: BP 131/47; PULSE 87; RESP 18
== END 2023-12-09 13:10 | disposition home or self-care (01) ==
LOC: JONCCHEMO 10:53 → J7W 10:54 → JONCCHEMO 13:00
PROVIDERS: ATTEND Internal Medicine Hematology & Oncology
DX: Z51.11 Encounter for antineoplastic chemotherapy (principal); C50.411 Malignant neoplasm of upper-outer quadrant of right female breast
CPT/HCPCS: 96375; 96413; J9264

== ENCOUNTER 2023-12-22 10:25 | Day surgery (SDC) | payer OTHER, BC ==
[2023-12-22] MEDS: SODIUM CHLORIDE 250 ML IV ONE (11:00)
[2023-12-22 11:39] LABS: BASO % 2.1 % (0-2.0); EOS % 1.4 % (0-4.5); HEMATOCRIT 34.6 % (32.4-45.2); HEMOGLOBIN 10.9 GM/dL (10.7-15.3); LYMPH % 19.9 % (8-40); MCH 27.1 pg (25.7-33.7); MCHC 31.4 g/dl (32.0-36.0); MEAN CELL VOLUME 86.2 fl (80-96); MEAN PLT VOLUME 7.6 fl (7.5-11.1); MONO % 14.5 % (3.8-10.2); NEUT % 62.1 % (42.8-82.8); PLATELET COUNT 297 10^3/uL (134-434); RBC 4.01 M/mm3 (3.60-5.2); RDW 19.8 % (11.6-15.6); WHITE BLOOD COUNT 4.5 K/mm3 (4.0-10.0)
[2023-12-22 11:57] LABS: POTASSIUM 4.2 mmol/L (3.5-5.1)
[2023-12-22 12:00] LABS: CALCIUM 9.4 mg/dL (8.5-10.1)
[2023-12-22 12:01] LABS: BLOOD UREA NITROGEN 22.1 mg/dL (7-18)
[2023-12-22 12:04] LABS: CREATININE 1.2 mg/dL (0.55-1.3)
[2023-12-22 12:05] LABS: BILIRUBIN,TOTAL 0.8 mg/dL (0.2-1); TOT PROT 6.2 g/dl (6.4-8.2)
[2023-12-22] MEDS: GRANISETRON HCL/PF 1 MG in SODIUM CHLORIDE 50 ML IVPB ONE (12:17)
[2023-12-22 12:29] VITALS: RESP 20; TEMP 97.5
[2023-12-22] MEDS: DEXAMETHASONE SODIUM PHOSPHATE 6 MG in DEXTROSE 5%-WATER - 50 ML IVPB ONE (12:38)
[2023-12-22] MEDS: SODIUM CHLORIDE IVPB ONE (12:55)
[2023-12-22] MEDS: PACLITAXEL PROTEIN BOUND IVPB ONE (12:55)
[2023-12-22] MEDS: PORTA CATH FLUSH 10 ML IVPUSH PRN (13:30)
[2023-12-22 14:35] VITALS: BP 151/52; PULSE 66
== END 2023-12-22 14:05 | disposition home or self-care (01) ==
LOC: JONCCHEMO 10:25 → J7W 10:25 → JONCCHEMO 14:05
PROVIDERS: ATTEND Internal Medicine Hematology & Oncology
DX: Z51.11 Encounter for antineoplastic chemotherapy (principal); C50.411 Malignant neoplasm of upper-outer quadrant of right female breast
CPT/HCPCS: 36415; 80053; 83735; 85025; 96375; 96413; J9264

== ENCOUNTER 2024-01-05 11:09 | Day surgery (SDC) | payer OTHER, BC ==
[2024-01-05] MEDS: SODIUM CHLORIDE 250 ML IV ONE ×2 (11:30→12:51)
[2024-01-05] MEDS: DEXAMETHASONE SODIUM PHOSPHATE 6 MG in SODIUM CHLORIDE 50 ML IVPB ONE (11:44)
[2024-01-05] MEDS: GRANISETRON HCL/PF 1 MG in SODIUM CHLORIDE 50 ML IVPB ONE (12:03)
[2024-01-05] MEDS: PACLITAXEL PROTEIN-BOUND 160 MG in SODIUM CHLORIDE 32 ML IVPB ONE (12:21)
[2024-01-05] MEDS: PORTA CATH FLUSH 10 ML IVPUSH PRN (13:00)
[2024-01-05 16:22] VITALS: RESP 20; TEMP 97.8
[2024-01-05 16:43] VITALS: BP 138/48; PULSE 60
== END 2024-01-05 13:30 | disposition home or self-care (01) ==
LOC: J7W 11:09 → JONCCHEMO 11:09
PROVIDERS: ATTEND Internal Medicine Hematology & Oncology
DX: Z51.11 Encounter for antineoplastic chemotherapy (principal); C50.411 Malignant neoplasm of upper-outer quadrant of right female breast
CPT/HCPCS: 96375; 96413; J9264

== ENCOUNTER 2024-01-26 10:11 | Day surgery (SDC) | payer OTHER, BC ==
[2024-01-26] MEDS: SODIUM CHLORIDE 250 ML IV ONE ×2 (10:41→13:36)
[2024-01-26 11:02] VITALS: RESP 20
[2024-01-26 11:07] VITALS: TEMP 97.9
[2024-01-26] MEDS: GRANISETRON HCL/PF 1 MG in SODIUM CHLORIDE 50 ML IVPB ONE (12:09)
[2024-01-26] MEDS: DEXAMETHASONE SODIUM PHOSPHATE 6 MG in SODIUM CHLORIDE 50 ML IVPB ONE (12:28)
[2024-01-26] MEDS: PACLITAXEL PROTEIN BOUND IVPB ONE (12:46)
[2024-01-26] MEDS: SODIUM CHLORIDE IVPB ONE (12:46)
[2024-01-26] MEDS: PORTA CATH FLUSH 10 ML IVPUSH PRN (14:40)
[2024-01-26 14:51] VITALS: BP 150/48; PULSE 65
== END 2024-01-26 15:20 | disposition home or self-care (01) ==
LOC: J7W 10:11 → JONCCHEMO 10:11
PROVIDERS: ATTEND Internal Medicine Hematology & Oncology
DX: Z51.11 Encounter for antineoplastic chemotherapy (principal); C50.411 Malignant neoplasm of upper-outer quadrant of right female breast
CPT/HCPCS: 96375; 96413; J9264

== ENCOUNTER 2024-02-16 11:25 | Day surgery (SDC) | payer OTHER, BC ==
[2024-02-16] MEDS: SODIUM CHLORIDE 250 ML IV ONE ×2 (12:05→14:45)
[2024-02-16] MEDS: GRANISETRON HCL/PF 1 MG in SODIUM CHLORIDE 50 ML IVPB ONE (13:21)
[2024-02-16] MEDS: DEXAMETHASONE SODIUM PHOSPHATE 6 MG in SODIUM CHLORIDE 50 ML IVPB ONE (13:37)
[2024-02-16] MEDS: SODIUM CHLORIDE IVPB ONE (14:10)
[2024-02-16] MEDS: PACLITAXEL PROTEIN BOUND IVPB ONE (14:10)
[2024-02-16] MEDS: PORTA CATH FLUSH 10 ML IVPUSH PRN (15:45)
[2024-02-16 16:41] VITALS: PULSE 80; RESP 20; TEMP 97.9
[2024-02-16 16:50] VITALS: BP 140/62
== END 2024-02-16 16:00 | disposition home or self-care (01) ==
LOC: JONCCHEMO 11:25 → J7W 11:26 → JONCCHEMO 16:00
PROVIDERS: ATTEND Internal Medicine Hematology & Oncology
DX: Z51.11 Encounter for antineoplastic chemotherapy (principal); C50.411 Malignant neoplasm of upper-outer quadrant of right female breast
CPT/HCPCS: 96375; 96413; J9264

== ENCOUNTER 2024-03-01 11:25 | Day surgery (SDC) | payer OTHER, BC ==
[2024-03-01] MEDS: SODIUM CHLORIDE 250 ML IV ONE ×2 (11:56→14:15)
[2024-03-01] MEDS: GRANISETRON HCL/PF 1 MG in SODIUM CHLORIDE 50 ML IVPB ONE (12:52)
[2024-03-01] MEDS: DEXAMETHASONE SODIUM PHOSPHATE 6 MG in SODIUM CHLORIDE 50 ML IVPB ONE (13:20)
[2024-03-01] MEDS: PACLITAXEL PROTEIN BOUND IVPB ONE (13:37)
[2024-03-01] MEDS: SODIUM CHLORIDE IVPB ONE (13:37)
[2024-03-01] MEDS: PORTA CATH FLUSH 10 ML IVPUSH PRN (14:30)
[2024-03-01 16:12] VITALS: BP 112/41; PULSE 74; RESP 20; TEMP 97.8
== END 2024-03-01 15:35 | disposition home or self-care (01) ==
LOC: JONCCHEMO 11:25 → J7W 11:25 → JONCCHEMO 15:35
PROVIDERS: ATTEND Internal Medicine Hematology & Oncology
DX: Z51.11 Encounter for antineoplastic chemotherapy (principal); C50.411 Malignant neoplasm of upper-outer quadrant of right female breast
CPT/HCPCS: 96367; 96375; 96413; J9264

== ENCOUNTER 2024-03-08 11:43 | Day surgery (SDC) | payer OTHER, BC ==
[2024-03-08] MEDS: SODIUM CHLORIDE 250 ML IV ONE ×2 (11:45→14:00)
[2024-03-08] MEDS: GRANISETRON HCL/PF 1 MG in SODIUM CHLORIDE 50 ML IVPB ONE (12:30)
[2024-03-08] MEDS: DEXAMETHASONE SODIUM PHOSPHATE 6 MG in DEXTROSE 5%-WATER - 50 ML IVPB ONE (12:54)
[2024-03-08] MEDS: PACLITAXEL PROTEIN-BOUND 160 MG in SODIUM CHLORIDE 32 ML IVPB ONE (13:21)
[2024-03-08] MEDS: PORTA CATH FLUSH 10 ML IVPUSH PRN (15:00)
[2024-03-08 18:09] VITALS: BP 130/52; PULSE 112; RESP 20; TEMP 98
== END 2024-03-08 15:15 | disposition home or self-care (01) ==
LOC: JONCCHEMO 11:43 → J7W 11:49 → JONCCHEMO 15:15
PROVIDERS: ATTEND Internal Medicine Hematology & Oncology
DX: Z51.11 Encounter for antineoplastic chemotherapy (principal); C50.411 Malignant neoplasm of upper-outer quadrant of right female breast
CPT/HCPCS: 96367; 96413; J9264

== ENCOUNTER 2024-03-29 11:15 | Day surgery (SDC) | payer OTHER, BC ==
[2024-03-29] MEDS: SODIUM CHLORIDE 250 ML IV ONE ×2 (11:40→13:11)
[2024-03-29] MEDS: DEXAMETHASONE SODIUM PHOSPHATE 6 MG in DEXTROSE 5%-WATER - 50 ML IVPB ONE (11:46)
[2024-03-29] MEDS: GRANISETRON HCL/PF 1 MG in SODIUM CHLORIDE 50 ML IVPB ONE (12:18)
[2024-03-29] MEDS: PACLITAXEL PROTEIN BOUND IVPB ONE (12:35)
[2024-03-29] MEDS: SODIUM CHLORIDE IVPB ONE (12:35)
[2024-03-29] MEDS: PORTA CATH FLUSH 10 ML IVPUSH PRN (14:10)
[2024-03-29 16:14] VITALS: BP 102/49; PULSE 89; RESP 20; TEMP 98
== END 2024-03-29 14:20 | disposition home or self-care (01) ==
LOC: J7W 11:15 → JONCCHEMO 11:15
PROVIDERS: ATTEND Internal Medicine Hematology & Oncology
PROC: 3E04305 Introduction of Other Antineoplastic into Central Vein, Percutaneous Approach (ICD-10-PCS; principal; 2024-03-29)
PROC: 3E0437Z Introduction of Electrolytic and Water Balance Substance into Central Vein, Percutaneous Approach (ICD-10-PCS; 2024-03-29)
DX: Z51.11 Encounter for antineoplastic chemotherapy (principal); C50.411 Malignant neoplasm of upper-outer quadrant of right female breast
CPT/HCPCS: 96361; 96375; 96413; J9264

== ENCOUNTER 2024-04-12 10:55 | Day surgery (SDC) | payer OTHER, BC ==
[2024-04-12] MEDS: SODIUM CHLORIDE 250 ML IV ONE ×2 (11:32→14:10)
[2024-04-12 12:25] VITALS: RESP 20
[2024-04-12] MEDS: DEXAMETHASONE SODIUM PHOSPHATE 6 MG in SODIUM CHLORIDE 50 ML IVPB ONE (12:33)
[2024-04-12] MEDS: GRANISETRON HCL/PF 1 MG in SODIUM CHLORIDE 50 ML IVPB ONE (12:54)
[2024-04-12] MEDS: PACLITAXEL PROTEIN BOUND IVPB ONE (13:09)
[2024-04-12] MEDS: SODIUM CHLORIDE IVPB ONE (13:09)
[2024-04-12] MEDS: PORTA CATH FLUSH 10 ML IVPUSH PRN (15:15)
[2024-04-12 17:19] VITALS: BP 122/51; PULSE 83
[2024-04-12 17:34] VITALS: TEMP 98.1
== END 2024-04-12 15:30 | disposition home or self-care (01) ==
LOC: JONCCHEMO 10:55 → J7W 10:56 → JONCCHEMO 15:30
PROVIDERS: ATTEND Internal Medicine Hematology & Oncology
DX: Z51.11 Encounter for antineoplastic chemotherapy (principal); C50.411 Malignant neoplasm of upper-outer quadrant of right female breast
CPT/HCPCS: 96375; 96413; J9264

== ENCOUNTER 2024-05-03 11:38 | Day surgery (SDC) | payer OTHER, BC ==
[2024-05-03] MEDS: SODIUM CHLORIDE 250 ML IV ONE ×2 (12:01→13:45)
[2024-05-03] MEDS: GRANISETRON HCL/PF 1 MG in SODIUM CHLORIDE 50 ML IVPB ONE (12:28)
[2024-05-03] MEDS: DEXTROSE 5% IVPB ONE (12:46)
[2024-05-03] MEDS: WATER IVPB ONE (12:46)
[2024-05-03] MEDS: DEXAMETHASONE IVPB ONE (12:46)
[2024-05-03] MEDS: PACLITAXEL PROTEIN BOUND IVPB ONE (13:10)
[2024-05-03] MEDS: SODIUM CHLORIDE IVPB ONE (13:10)
[2024-05-03] MEDS: PORTA CATH FLUSH 10 ML IVPUSH PRN (13:45)
[2024-05-03] MEDS ORDERED: PORTA CATH FLUSH 10 ML IVPUSH PRN (15:23)
[2024-05-03 15:39] VITALS: BP 119/45; PULSE 75; RESP 20; TEMP 97.1
== END 2024-05-03 15:15 | disposition home or self-care (01) ==
LOC: JONCCHEMO 11:38 → J7W 11:45 → JONCCHEMO 15:15
PROVIDERS: ATTEND Internal Medicine Hematology & Oncology
DX: Z51.11 Encounter for antineoplastic chemotherapy (principal); C50.411 Malignant neoplasm of upper-outer quadrant of right female breast
CPT/HCPCS: 96367; 96413; J1100; J9264

== ENCOUNTER 2024-06-06 16:42 | Inpatient (IN) | payer OTHER, BC ==
[2024-06-06 17:18] VITALS: BMI 24.7
[2024-06-06] MEDS ORDERED: ACETAMINOPHEN INJECTION 100 ML IVPB ONE (17:57)
[2024-06-06] MEDS: ACETAMINOPHEN 1000 MG/100 ML BAG IVPB ONE (18:21)
[2024-06-06] MEDS: SODIUM CHLORIDE 0.9% 500 ML INFUS.BAG IV ONE (18:21)
[2024-06-06 18:42] LABS: BASO % 0.6 % (0-2.0); EOS % 1.1 % (0-4.5); HEMATOCRIT 35.1 % (32.4-45.2); HEMOGLOBIN 11.4 GM/dL (10.7-15.3); LYMPH % 12.7 % (8-40); MCH 25.7 pg (25.7-33.7); MCHC 32.5 g/dl (32.0-36.0); MEAN CELL VOLUME 79.1 fl (80-96); MEAN PLT VOLUME 7.7 fl (7.5-11.1); MONO % 9.5 % (3.8-10.2); NEUT % 76.1 % (42.8-82.8); PLATELET COUNT 339 10^3/uL (134-434); RBC 4.44 M/mm3 (3.60-5.2); RDW 19.1 % (11.6-15.6); WHITE BLOOD COUNT 7.5 K/mm3 (4.0-10.0)
[2024-06-06 19:00] LABS: POTASSIUM 3.9 mmol/L (3.5-5.1)
[2024-06-06 19:02] LABS: CALCIUM 11.6 mg/dL (8.5-10.1)
[2024-06-06 19:03] LABS: ALBUMIN 2.7 g/dl (3.4-5.0)
[2024-06-06 19:06] LABS: CREATININE 1.3 mg/dL (0.55-1.3)
[2024-06-06 19:07] LABS: BILIRUBIN,TOTAL 1.2 mg/dL (0.2-1)
[2024-06-06 19:08] LABS: TOT PROT 6.7 g/dl (6.4-8.2)
[2024-06-06] MEDS: SODIUM CHLORIDE 1,000 ML IV STA (19:27)
[2024-06-06] MEDS ORDERED: CEFTRIAXONE 1 GM/50 ML BAG ONE (19:35)
[2024-06-06] MEDS: CEFTRIAXONE 1,000 MG in DEXTROSE 5%-WATER - 50 ML IVPB ONE (19:36)
[2024-06-06] MEDS ORDERED: AZITHROMYCIN IVPB 500 MG/250 ML BAG IVPB ONE (19:49)
[2024-06-06] MEDS: AZITHROMYCIN IVPB 500 MG in DEXTROSE 5%-WATER - 250 ML IVPB ONE (20:07)
[2024-06-06] MEDS ORDERED: ZOLEDRONIC ACID 4 MG in SODIUM CHLORIDE 100 ML IVPB ONE (22:46)
[2024-06-07] MEDS ORDERED: FUROSEMIDE 40 MG/4 ML INJECTABLE VIAL ONE (02:21)
[2024-06-07] MEDS: SODIUM CHLORIDE 1,000 ML IV STA (02:30)
[2024-06-07] MEDS: FUROSEMIDE 40 MG/4 ML INJECTABLE VIAL IVPUSH ONE ×2 (02:30→09:01)
[2024-06-07] MEDS: ZOLEDRONIC ACID 4 MG/5 ML IVPB ONE (02:31)
[2024-06-07] MEDS ORDERED: FUROSEMIDE 40 MG/4 ML INJECTABLE VIAL IVPUSH ONE (06:00)
[2024-06-07] MEDS: ENOXAPARIN NA (PORCINE) 40 MG/0.4 ML DISP.SYRIN SQ SCH (09:01)
[2024-06-07 09:18] LABS: BASO % 0.7 % (0-2.0); EOS % 1.4 % (0-4.5); HEMATOCRIT 35.2 % (32.4-45.2); HEMOGLOBIN 11.6 GM/dL (10.7-15.3); LYMPH % 11.2 % (8-40); MCH 25.9 pg (25.7-33.7); MCHC 32.9 g/dl (32.0-36.0); MEAN CELL VOLUME 78.9 fl (80-96); MEAN PLT VOLUME 7.8 fl (7.5-11.1); NEUT % 79.7 % (42.8-82.8); PLATELET COUNT 367 10^3/uL (134-434); RBC 4.47 M/mm3 (3.60-5.2); RDW 18.4 % (11.6-15.6)
[2024-06-07 09:42] LABS: POTASSIUM 3.4 mmol/L (3.5-5.1)
[2024-06-07 09:58] LABS: ALBUMIN 2.7 g/dl (3.4-5.0); CALCIUM 11.2 mg/dL (8.5-10.1)
[2024-06-07 09:59] LABS: BLOOD UREA NITROGEN 17.7 mg/dL (7-18); MAGNESIUM 1.7 mg/dL (1.8-2.4)
[2024-06-07 10:02] LABS: CREATININE 1.2 mg/dL (0.55-1.3)
[2024-06-07 10:03] LABS: BILIRUBIN,TOTAL 0.9 mg/dL (0.2-1); TOT PROT 6.5 g/dl (6.4-8.2)
[2024-06-07 11:46] LABS: EPI CELLS 2 /uL (0-25.1); HYALINE CASTS 2 /uL (0-3.1); PH,URINE 5.5 (5.0-8.0); URINE APPEARANCE CLOUDY; URINE BACTERIA 126 /uL (0-1359); URINE BILIRUBIN NEGATIVE (NEGATIVE); URINE COLOR YELLOW; URINE GLUCOSE (UA) NEGATIVE (NEGATIVE); URINE KETONE NEGATIVE (NEGATIVE); URINE LEUK ESTERASE 3+ (NEGATIVE); URINE NITRITE NEGATIVE (NEGATIVE); URINE PROTEIN 1+ (NEGATIVE); URINE RBC 69 /uL (0-23.9); URINE UROBILINOGEN 0.2 mg/dL (0.2-1.0); URINE WBC 967 /uL (0-25.8)
[2024-06-07] MEDS: SODIUM CHLORIDE 1,000 ML IV SCH ×2 (14:55→16:14)
[2024-06-07] MEDS ORDERED: LACTATED RINGERS SOLUTION 1,000 ML/1,000 ML INFUS.BAG IV SCH (15:30)
[2024-06-07] MEDS ORDERED: SODIUM CHLORIDE 1,000 ML IV SCH (15:45)
[2024-06-07] MEDS: MAGNESIUM SULF 50% (8.12 MEQ/2 ML-1 GM VIAL) IVPB ONE (16:05)
[2024-06-07] MEDS: POTASSIUM CHLORIDE TABS 20 MEQ TABLET.ER (FP) PO ONE ×2 (16:05→20:01)
[2024-06-07] MEDS: POLYETHYLENE GLYCOL (HEALTHYLAX) 3350 17 GM PACKET PO SCH (17:14)
[2024-06-07] MEDS: POTASSIUM CHLORIDE ORAL LIQUID 20 MEQ/15 ML PO ONE (20:02)
[2024-06-07] MEDS: METOPROLOL TARTRATE 25 MG TABLET (FP) PO SCH (21:23)
[2024-06-08 09:47] LABS: HEMATOCRIT 30.8 % (32.4-45.2); HEMOGLOBIN 9.9 GM/dL (10.7-15.3); MCH 25.8 pg (25.7-33.7); MCHC 32.2 g/dl (32.0-36.0); MEAN CELL VOLUME 80.3 fl (80-96); MEAN PLT VOLUME 7.9 fl (7.5-11.1); PLATELET COUNT 323 10^3/uL (134-434); RBC 3.83 M/mm3 (3.60-5.2); RDW 18.8 % (11.6-15.6)
[2024-06-08 10:39] LABS: POTASSIUM 3.6 mmol/L (3.5-5.1)
[2024-06-08 10:47] LABS: ALBUMIN 2.5 g/dl (3.4-5.0); BLOOD UREA NITROGEN 20.8 mg/dL (7-18); CALCIUM 10.3 mg/dL (8.5-10.1)
[2024-06-08 10:50] LABS: BILIRUBIN,TOTAL 0.6 mg/dL (0.2-1); CREATININE 1.2 mg/dL (0.55-1.3); PHOSPHOROUS 3.4 mg/dL (2.5-4.9); TOT PROT 6.2 g/dl (6.4-8.2)
[2024-06-09 10:21] LABS: POTASSIUM 4.5 mmol/L (3.5-5.1)
[2024-06-09 10:28] LABS: ALBUMIN 2.4 g/dl (3.4-5.0); BLOOD UREA NITROGEN 21.3 mg/dL (7-18); CALCIUM 9.3 mg/dL (8.5-10.1); MAGNESIUM 2.1 mg/dL (1.8-2.4)
[2024-06-09 10:32] LABS: CREATININE 1.1 mg/dL (0.55-1.3); PHOSPHOROUS 3.2 mg/dL (2.5-4.9)
[2024-06-09 10:34] LABS: BILIRUBIN,TOTAL 0.6 mg/dL (0.2-1)
[2024-06-09 13:06] LABS: HEMATOCRIT 31.9 % (32.4-45.2); HEMOGLOBIN 10.1 GM/dL (10.7-15.3); MCH 25.4 pg (25.7-33.7); MCHC 31.7 g/dl (32.0-36.0); MEAN CELL VOLUME 79.9 fl (80-96); MEAN PLT VOLUME 7.8 fl (7.5-11.1); PLATELET COUNT 321 10^3/uL (134-434); RBC 3.99 M/mm3 (3.60-5.2); RDW 18.8 % (11.6-15.6); WHITE BLOOD COUNT 5.6 K/mm3 (4.0-10.0)
[2024-06-09 13:19] LABS: POTASSIUM 3.8 mmol/L (3.5-5.1)
[2024-06-09 13:22] LABS: ALBUMIN 2.6 g/dl (3.4-5.0); CALCIUM 9.6 mg/dL (8.5-10.1)
[2024-06-09 13:23] LABS: BLOOD UREA NITROGEN 21.2 mg/dL (7-18)
[2024-06-09 13:25] LABS: CREATININE 1.2 mg/dL (0.55-1.3)
[2024-06-09 13:26] LABS: BILIRUBIN,TOTAL 0.6 mg/dL (0.2-1); TOT PROT 6.2 g/dl (6.4-8.2)
[2024-06-10 08:48] LABS: HEMATOCRIT 29.8 % (32.4-45.2); HEMOGLOBIN 9.4 GM/dL (10.7-15.3); MCH 25.3 pg (25.7-33.7); MCHC 31.6 g/dl (32.0-36.0); MEAN CELL VOLUME 80.1 fl (80-96); MEAN PLT VOLUME 7.7 fl (7.5-11.1); PLATELET COUNT 299 10^3/uL (134-434); RBC 3.72 M/mm3 (3.60-5.2); RDW 18.4 % (11.6-15.6); WHITE BLOOD COUNT 5.9 K/mm3 (4.0-10.0)
[2024-06-10 08:55] LABS: POTASSIUM 3.8 mmol/L (3.5-5.1)
[2024-06-10 09:02] LABS: ALBUMIN 2.3 g/dl (3.4-5.0); BLOOD UREA NITROGEN 19.6 mg/dL (7-18)
[2024-06-10 09:06] LABS: BILIRUBIN,TOTAL 0.4 mg/dL (0.2-1); CREATININE 1.1 mg/dL (0.55-1.3); PHOSPHOROUS 3.2 mg/dL (2.5-4.9); TOT PROT 5.6 g/dl (6.4-8.2)
[2024-06-11 05:51] VITALS: RESP 18
[2024-06-11 09:59] LABS: BASO % 1.2 % (0-2.0); EOS % 1.7 % (0-4.5); HEMATOCRIT 28.8 % (32.4-45.2); HEMOGLOBIN 9.3 GM/dL (10.7-15.3); LYMPH % 17.5 % (8-40); MCH 25.4 pg (25.7-33.7); MCHC 32.2 g/dl (32.0-36.0); MEAN PLT VOLUME 7.9 fl (7.5-11.1); MONO % 8.3 % (3.8-10.2); NEUT % 71.3 % (42.8-82.8); PLATELET COUNT 312 10^3/uL (134-434); RBC 3.64 M/mm3 (3.60-5.2); RDW 18.4 % (11.6-15.6); WHITE BLOOD COUNT 7.3 K/mm3 (4.0-10.0)
[2024-06-11 10:24] LABS: POTASSIUM 3.8 mmol/L (3.5-5.1)
[2024-06-11 10:33] LABS: ALBUMIN 2.4 g/dl (3.4-5.0); CALCIUM 8.5 mg/dL (8.5-10.1)
[2024-06-11 10:37] LABS: CREATININE 1.1 mg/dL (0.55-1.3)
[2024-06-11 10:38] LABS: BILIRUBIN,TOTAL 0.5 mg/dL (0.2-1); TOT PROT 5.7 g/dl (6.4-8.2)
[2024-06-11 11:01] LABS: ANISOCYTOSIS 2+; MACROCYTOSIS 0; OVALOCYTE 1+; TEAR DROP CELLS 1+
[2024-06-11 17:08] VITALS: BP 130/60; PULSE 85; TEMP 99.1
== END 2024-06-11 17:16 | disposition home or self-care (01) | DRG 544 ==
LOC: JER 16:42 → JERBED 21:39 → J6S 23:35
PROVIDERS: ADMIT Internal Medicine; ATTEND Internal Medicine
DX: C79.51 Secondary malignant neoplasm of bone (principal); C50.911 Malignant neoplasm of unspecified site of right female breast; E83.52 Hypercalcemia; I12.9 Hypertensive chronic kidney disease with stage 1 through stage 4 chronic kidney disease, or unspecified chronic kidney disease; E11.22 Type 2 diabetes mellitus with diabetic chronic kidney disease; N18.2 Chronic kidney disease, stage 2 (mild); R51.9 Headache, unspecified; K59.00 Constipation, unspecified; E86.0 Dehydration
CPT/HCPCS: 0241U-QW; 36415; 70552-TC; 71045-TC-FY; 71260-TC; 74018-TC-FY; 74177-TC; 78306-TC; 80053; 81003; 82306; 83735; 83970; 84100; 84443; 84484; 85025; 85027; 87086; 93005; 93010; 93971-TC; 97116-GP; 97162-GP; 99285-25; A9503; J0131; J3489; Q9967

== ENCOUNTER 2024-07-08 12:07 | Inpatient (IN) | payer OTHER, BC ==
[2024-07-08] MEDS ORDERED: ACETAMINOPHEN INJECTION 100 ML ONE (13:47)
[2024-07-08 13:53] LABS: HEMATOCRIT 32.6 % (32.4-45.2); HEMOGLOBIN 10.3 GM/dL (10.7-15.3); MCH 24.4 pg (25.7-33.7); MCHC 31.8 g/dl (32.0-36.0); MEAN CELL VOLUME 76.7 fl (80-96); MEAN PLT VOLUME 7.4 fl (7.5-11.1); PLATELET COUNT 265 10^3/uL (134-434); RBC 4.24 M/mm3 (3.60-5.2); VENOUS BASE EXCESS 0.2 mmol/L (-2-2); VENOUS O2 SATURATION 71.7 % (70-80); VENOUS PCO2 39.8 mmHg (38-52); VENOUS PH 7.412 (7.310-7.410)
[2024-07-08 13:56] LABS: EPI CELLS >36 /uL (0-25.1); HYALINE CASTS 36 /uL (0-3.1); PH,URINE 5.5 (5.0-8.0); URINE APPEARANCE TURBID; URINE BILIRUBIN NEGATIVE (NEGATIVE); URINE COLOR ORANGE; URINE GLUCOSE (UA) NEGATIVE (NEGATIVE); URINE KETONE TRACE (NEGATIVE); URINE LEUK ESTERASE 3+ (NEGATIVE); URINE NITRITE NEGATIVE (NEGATIVE); URINE PROTEIN 2+ (NEGATIVE); URINE WBC 308 /uL (0-25.8)
[2024-07-08] MEDS: ACETAMINOPHEN 1000 MG/100 ML BAG IVPB ONE (13:57)
[2024-07-08] MEDS: SODIUM CHLORIDE 0.9% 1000 ML INFUS.BAG IV STA (13:57)
[2024-07-08 13:58] LABS: INR 1.36 (0.83-1.09); PROTHROMBIN TIME (PATIENT) 15.2 SEC (9.7-13.0)
[2024-07-08 14:01] LABS: ACTIVATED PTT 31.2 SECONDS (25.2-36.5)
[2024-07-08 14:11] LABS: POTASSIUM 3.2 mmol/L (3.5-5.1)
[2024-07-08 14:13] LABS: CALCIUM 10.3 mg/dL (8.5-10.1)
[2024-07-08] MEDS ORDERED: CEFEPIME 2 GM/100 ML BAG IVPB ONE (14:13)
[2024-07-08] MEDS ORDERED: VANCOMYCIN 1 GRAM (PRE-DOCKED) 1,000 MG/250 ML BAG IVPB ONE ×2 (14:13→14:59)
[2024-07-08 14:14] LABS: ALBUMIN 2.4 g/dl (3.4-5.0); BLOOD UREA NITROGEN 19.4 mg/dL (7-18)
[2024-07-08 14:16] LABS: MAGNESIUM 1.7 mg/dL (1.8-2.4)
[2024-07-08 14:18] LABS: BILIRUBIN,TOTAL 0.9 mg/dL (0.2-1); TOT PROT 6.1 g/dl (6.4-8.2)
[2024-07-08 14:20] LABS: PHOSPHOROUS 3.6 mg/dL (2.5-4.9)
[2024-07-08] MEDS: CEFEPIME HCL 2 GM VIAL (RESTRICTED TO ID) IVPB ONE (14:25)
[2024-07-08 14:40] LABS: ANISOCYTOSIS 1+; MACROCYTOSIS 1+
[2024-07-08 14:43] LABS: PLATELET ESTIMATE ADEQUATE
[2024-07-08 15:00] LABS: URINE BACTERIA 22 /uL (0-1359); URINE CRYSTALS PRESENT /hpf; URINE RBC 2244 /uL (0-23.9)
[2024-07-08 15:01] LABS: YEAST NOT PRESENT (NEGATIVE)
[2024-07-08] MEDS: VANCOMYCIN 1,000 MG in DEXTROSE 5%-WATER - 250 ML IVPB ONE (15:10)
[2024-07-08] MEDS ORDERED: MAGNESIUM 1GM/D5W - 1 GM/100 ML IVPB IVPB ONE (15:59)
[2024-07-08] MEDS ORDERED: KCL 10 MEQ IVPB 10 MEQ/100 ML INFUS.BAG IVPB ONE (15:59)
[2024-07-08] MEDS: KCL 10 MEQ IVPB 10 MEQ/100 ML INFUS.BAG IVPB SCH (16:08)
[2024-07-08] MEDS: MAGNESIUM 1GM/D5W - 1 GM/100 ML IVPB IVPB ONE (17:23)
[2024-07-08 18:53] VITALS: BMI 23.1
[2024-07-08] MEDS ORDERED: KCL 10 MEQ IVPB 10 MEQ/100 ML INFUS.BAG IVPB SCH ×2 (20:30)
[2024-07-08] MEDS: CEFTRIAXONE 1 GM in DEXTROSE 5%-WATER - 50 ML IVPB SCH (21:59)
[2024-07-08] MEDS: METOPROLOL TARTRATE 25 MG TABLET (FP) PO SCH (21:59)
[2024-07-08] MEDS: HEPARIN NA (PORCINE) 5,000 UNITS/ML 1ML VIAL SQ SCH (21:59)
[2024-07-09 05:34] VITALS: RESP 18
[2024-07-09 08:44] LABS: HEMATOCRIT 31.3 % (32.4-45.2); MCHC 31.8 g/dl (32.0-36.0); MEAN CELL VOLUME 78.6 fl (80-96); MEAN PLT VOLUME 7.5 fl (7.5-11.1); PLATELET COUNT 268 10^3/uL (134-434); RBC 3.98 M/mm3 (3.60-5.2); RDW 19.5 % (11.6-15.6); WHITE BLOOD COUNT 7.1 K/mm3 (4.0-10.0)
[2024-07-09 09:04] LABS: POTASSIUM 4.1 mmol/L (3.5-5.1)
[2024-07-09 09:07] LABS: ALBUMIN 2.3 g/dl (3.4-5.0); BLOOD UREA NITROGEN 17.2 mg/dL (7-18)
[2024-07-09 09:10] LABS: CREATININE 0.9 mg/dL (0.55-1.3)
[2024-07-09 09:12] LABS: BILIRUBIN,TOTAL 0.8 mg/dL (0.2-1); TOT PROT 5.9 g/dl (6.4-8.2)
[2024-07-09 10:20] LABS: ANISOCYTOSIS 1+; MACROCYTOSIS 0
[2024-07-09 10:21] LABS: PLATELET ESTIMATE ADEQUATE
[2024-07-09] MEDS: POLYETHYLENE GLYCOL (HEALTHYLAX) 3350 17 GM PACKET PO SCH (11:40)
[2024-07-10 08:02] VITALS: BP 126/50; PULSE 92; TEMP 97.9
== END 2024-07-10 16:16 | disposition home or self-care (01) | DRG 690 ==
LOC: JER 12:07 → JERBED 14:15 → J6S 18:41
PROVIDERS: ADMIT Internal Medicine; ATTEND Internal Medicine
DX: N39.0 Urinary tract infection, site not specified (principal); C79.51 Secondary malignant neoplasm of bone; C78.7 Secondary malignant neoplasm of liver and intrahepatic bile duct; C50.919 Malignant neoplasm of unspecified site of unspecified female breast; I10 Essential (primary) hypertension; E78.5 Hyperlipidemia, unspecified; E11.9 Type 2 diabetes mellitus without complications; D64.9 Anemia, unspecified
CPT/HCPCS: 0241U-QW; 36415; 71045-TC-FY; 74176-TC; 80053; 81003; 82803; 83605; 83735; 84100; 84443; 84484; 85025; 85610; 85730; 86850; 86870; 86880; 86900; 86901; 86902; 87040; 87086; 93005; 93010; 99285-25; J0131; J1644

== ENCOUNTER 2024-08-14 10:08 | Inpatient (IN) | payer OTHER, BC ==
[2024-08-14 11:26] VITALS: TEMP 105.5; BMI 25.6
[2024-08-14] MEDS ORDERED: MORPHINE SULFATE/0.9% NACL/PF 100 MG/100 ML BAG ONE (12:33)
[2024-08-14] MEDS: MORPHINE SULFATE/0.9% NACL/PF 100 MG/100 ML BAG IVPB SCH (12:48)
[2024-08-14 13:57] VITALS: BP 51/26; PULSE 119; RESP 12
== END 2024-08-14 18:34 | disposition expired | DRG 598 ==
LOC: JER 10:08 → JERBED 10:55 → OBSVTOIN 11:00
PROVIDERS: ADMIT Internal Medicine; ATTEND Internal Medicine
DX: C50.911 Malignant neoplasm of unspecified site of right female breast (principal); C79.51 Secondary malignant neoplasm of bone; I10 Essential (primary) hypertension; E78.5 Hyperlipidemia, unspecified; E11.9 Type 2 diabetes mellitus without complications; I95.9 Hypotension, unspecified; R62.7 Adult failure to thrive
CPT/HCPCS: 99285-25; G0378